=== PATIENT | female | born 1970 | race Caucasian/White ===

== ENCOUNTER 2019-05-21 10:08 | Emergency (ER) | payer BC ==
--- NOTE | 2019-05-21 11:29 | ER ---
Nurse's Notes [facility] Name: Deb Whalen Age: 48 yrs Sex: Female : 1970 Arrival Date: 05/21/2019 Time: 10:12 Bed 18 Private MD: Diagnosis: Other specific joint derangements of right shoulder, not elsewhere classified Presentation: 05/21 10:29 Presenting complaint: Patient states: slipped and fell in shower a couple of days ago sv and landed on her right shoulder. Denies head injury. Pain now radiates down the right arm. Transition of care: patient was not received from another setting of care. Onset of symptoms was May 19, 2019. Risk Assessment: Do you want to hurt yourself or someone else? Patient reports no desire to harm self or others. Care prior to arrival: Medication(s) given: Vicodin 1 tab at 0500 today. 10:29 Method Of Arrival: Ambulatory sv 10:29 Acuity: MIKEY 4 sv 11:37 Initial Sepsis Screen: Does the patient meet any 2 criteria? No. Patient's initial tw2 sepsis screen is negative. Does the patient have a suspected source of infection? No. Patient's initial sepsis screen is negative. Triage Assessment: 10:29 General: Appears in no apparent distress. uncomfortable, well groomed, well developed, sv Behavior is calm, cooperative, appropriate for age. Pain: Complains of pain in anterior aspect of right shoulder and right bicep Pain currently is 6 out of 10 on a pain scale. Neuro: Level of Consciousness is awake, alert, obeys commands, Oriented to person, place, time, situation, Moves all extremities. Respiratory: Airway is patent Respiratory effort is even, unlabored, Respiratory pattern is regular, symmetrical. Derm: Skin is pink, warm \T\ dry. Musculoskeletal: Range of motion: limited in right shoulder. 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 tw2 Historical: - Allergies: 10:31 No Known Allergies; sv - PMHx: 10:31 None; sv - Immunization history:: Adult Immunizations. - Social history:: The patient lives at home, Smoking status: . - Ebola Screening: : Patient denies travel to an Ebola-affected area in the 21 days before illness onset. Screenin:29 Abuse screen: Denies threats or abuse. Denies injuries from another. Nutritional sv screening: No deficits noted. Tuberculosis screening: No symptoms or risk factors identified. Fall Risk None identified. Assessment: 11:36 Reassessment: Patient appears in no apparent distress at this time. No changes from tw2 previously documented assessment. Patient and/or family updated on plan of care and expected duration. Pain level reassessed. Patient is alert, oriented x 3, equal unlabored respirations, skin warm/dry/pink. Vital Signs: 10:31 BP 159 / 82; Pulse 71; Resp 18; Pulse Ox 98% ; Weight 108.86 kg; Height 5 ft. 3 in. sv (160.02 cm); Pain 6/10; 10:56 Temp 98.3(O); tw2 11:24 BP 146 / 67; Pulse 69; Resp 15; Temp 97.7(O); Pulse Ox 98% on R/A; mh5 10:31 Body Mass Index 42.51 (108.86 kg, 160.02 cm) sv ED Course: 10:12 Patient arrived in ED. rg4 10:20 Cristobal Cruz MD is Attending Physician. gs 10:25 Renee Moody, NAVYA is Primary Nurse. sv 10:29 Patient has correct armband on for positive identification. Bed in low position. Call sv light in reach. Pulse ox on. NIBP on. Door closed. Head of bed elevated. 10:30 Triage completed. sv 10:31 Arm band placed on. sv 10:58 Primary Nurse role handed off by Renee Moody, NAVYA tw2 10:58 Neetu Ruiz, RN is Primary Nurse. tw2 11:11 Report given to Neetu MENDOSA. sv 11:28 Shoulder Right (2 View) XRAY In Process Unspecified. EDMS 11:28 Elijah Monte MD is Referral Physician. gs 11:34 Urine --Ancillary (enter results) Sent. 5 11:34 Urine Dipstick--Ancillary (enter results) Sent. 5 11:35 Urine collected: clean catch specimen, clear. 5 11:37 No provider procedures requiring assistance completed. Patient did not have IV access tw2 during this emergency room visit. Administered Medications: No medications were administered Outcome: 11:28 Discharge ordered by . gs 11:37 Discharged to home ambulatory, with sling tw2 11:37 Condition: stable 11:37 Discharge instructions given to patient, Instructed on discharge instructions, follow up and referral plans. no drinking with medication, no driving heavy equipment, medication usage, sling, CMS Demonstrated understanding of instructions, follow-up care, medications, sling Prescriptions given X 1. 11:38 Patient left the ED. tw2 Signatures: Dispatcher [employer] Renee Ortiz RN RN sv Neetu Ruiz RN RN 2 Saskia Price [facility] Cristobal Cruz MD MD Corrections: (The following items were deleted from the chart) 10:55 10:31 108.86 kg; Height 5 ft. 3 in.; BMI: 42.5; Pain 6/10; sv sv
--- NOTE | 2019-05-21 11:29 | EDPHYS ---
Physician Documentation [facility] Name: Deb Whalen Age: 48 yrs Sex: Female : 1970 Arrival Date: 05/21/2019 Time: 10:12 Bed 18 Private MD: ED Physician Cristobal Cruz HPI: 05/21 11:24 This 48 yrs old Female presents to ER via Ambulatory with complaints of Arm gs Pain. 11:24 The patient or guardian complains of injury. The complaints affect the anterior aspect gs of right shoulder. Context: The problem was sustained at home, resulted from a fall, from a standing position, slipped in shower. Onset: The symptoms/episode began/occurred 2 day(s) ago, and became worse. Modifying factors: the symptoms are aggravated by lifting weight, bending arm. Associated signs and symptoms: Pertinent positives: decreased range of motion, Pertinent negatives: numbness, warmth, weakness. Severity of symptoms: At their worst the symptoms were moderate, in the emergency department the symptoms are unchanged. The patient has not experienced similar symptoms in the past. 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 tw2 Historical: - Allergies: 10:31 No Known Allergies; sv - PMHx: 10:31 None; sv - Immunization history:: Adult Immunizations. - Social history:: The patient lives at home, Smoking status: . - Ebola Screening: : Patient denies travel to an Ebola-affected area in the 21 days before illness onset. ROS: 11:24 All other systems are negative. gs Exam: 11:24 Head/Face: Normocephalic, atraumatic. Eyes: Pupils equal round and reactive to light, gs extra-ocular motions intact. Lids and lashes normal. Conjunctiva and sclera are non-icteric and not injected. Cornea within normal limits. Periorbital areas with no swelling, redness, or edema. ENT: Nares patent. No nasal discharge, no septal abnormalities noted. Tympanic membranes are normal and external auditory canals are clear. Oropharynx with no redness, swelling, or masses, exudates, or evidence of obstruction, uvula midline. Mucous membranes moist. Neck: Trachea midline, no thyromegaly or masses palpated, and no cervical lymphadenopathy. Supple, full range of motion without nuchal rigidity, or vertebral point tenderness. No Meningismus. Chest/axilla: Normal chest wall appearance and motion. Nontender with no deformity. No lesions are appreciated. Cardiovascular: Regular rate and rhythm with a normal S1 and S2. No gallops, murmurs, or rubs. Normal PMI, no JVD. No pulse deficits. Respiratory: Lungs have equal breath sounds bilaterally, clear to auscultation and percussion. No rales, rhonchi or wheezes noted. No increased work of breathing, no retractions or nasal flaring. Abdomen/GI: Soft, non-tender, with normal bowel sounds. No distension or tympany. No guarding or rebound. No evidence of tenderness throughout. Back: No spinal tenderness. No costovertebral tenderness. Full range of motion. Skin: Warm, dry with normal turgor. Normal color with no rashes, no lesions, and no evidence of cellulitis. Neuro: Awake and alert, GCS 15, oriented to person, place, time, and situation. Cranial nerves II-XII grossly intact. Motor strength 5/5 in all extremities. Sensory grossly intact. Cerebellar exam normal. Normal gait. 11:24 Constitutional: The patient appears alert, awake, uncomfortable. 11:24 Musculoskeletal/extremity: ROM: limited active range of motion due to pain, limited passive range of motion due to pain, Pulses: are normal with no appreciated deficits, Sensation intact. Joints: the right shoulder displays painful range of motion, tenderness. Vital Signs: 10:31 BP 159 / 82; Pulse 71; Resp 18; Pulse Ox 98% ; Weight 108.86 kg; Height 5 ft. 3 in. sv (160.02 cm); Pain 6/10; 10:56 Temp 98.3(O); tw2 11:24 BP 146 / 67; Pulse 69; Resp 15; Temp 97.7(O); Pulse Ox 98% on R/A; mh5 10:31 Body Mass Index 42.51 (108.86 kg, 160.02 cm) sv MDM: 10:30 Patient medically screened. gs 11:24 Differential diagnosis: dislocation, closed fracture, contusion. Data reviewed: vital gs signs, nurses notes. Counseling: I had a detailed discussion with the patient and/or guardian regarding: the historical points, exam findings, and any diagnostic results supporting the discharge/admit diagnosis, the presence of at least one elevated blood pressure reading (>120/80) during this emergency department visit, the need for outpatient follow up. Response to treatment: There is no appreciated change of the patient's symptoms at this time. 05/21 11:08 Order name: Urine Dipstick--Ancillary (enter results) 05/21 11:08 Order name: Urine --Ancillary (enter results) 05/21 10:31 Order name: Shoulder Right (2 View) XRAY 05/21 11:37 Order name: Sling; Complete Time: 11:37 tw2 Administered Medications: No medications were administered Disposition: 05/21/19 11:28 Discharged to Home. Impression: Other specific joint derangements of right shoulder, not elsewhere classified. - Condition is Stable. - Discharge Instructions: Shoulder Pain. - Prescriptions for Tylenol- Codeine #4 300-60 mg Oral Tablet - take 1 tablet by ORAL route every 6 hours As needed; 6 tablet. - Work release form, Medication Reconciliation Form, Thank You Letter, Antibiotic Education, Prescription Opioid Use form. - Follow up: Elijah Monte MD; When: 2 - 3 days; Reason: Re-evaluation by your physician. Signatures: Dispatcher [employer] EDRenee Ferrara RN RN Neetu Ruiz RN RN tw2 Cristobal Cruz MD MD Corrections: (The following items were deleted from the chart) 11:38 11:28 05/21/2019 11:28 Discharged to Home. Impression: Other specific joint tw2 derangements of right shoulder, not elsewhere classified. Condition is Stable. Forms are Work release form, Medication Reconciliation Form, Thank You Letter, Antibiotic Education, Prescription Opioid Use. Follow up: Dr. Elijah Monte; When: 2 - 3 days; Reason: Re-evaluation by your physician. gs
--- NOTE | 2019-05-21 11:37 | RAD REPORT ---
EXAM DESCRIPTION: RAD - Shoulder Right 2 View - 05/21/2019 11:26 am CLINICAL HISTORY: PAIN COMPARISON: No comparisons FINDINGS: AC joint and glenohumeral joint arthritic changes are present. No fracture or dislocation seen.
[2019-05-21 11:43] LABS: Urine Blood 1+ (NEG); Urine Glucose NEGATIVE (NEG); Urine Protein NEGATIVE (NEG)
[2019-05-21 12:27] VITALS: O2SAT 98
[2019-05-21 12:30] VITALS: BP 146/67; TEMP 97.7
== END 2019-05-21 11:38 | disposition home or self-care (01) ==
LOC: ER 10:08
DX: M24.811 Other specific joint derangements of right shoulder, not elsewhere classified (principal)
CPT/HCPCS: 81003; 81025; 99284

== ENCOUNTER → 2023-09-14 | Emergency (ER) | payer BC ==
[~2023-09-14] MED LIST: ASPIRIN 81 MG CHEWABLE TABLET ONE; FUROSEMIDE 20 MG/ 2ML VIAL ONE; NA CHLORIDE 0.9% 500 ML ONE
--- OUTSIDE RECORDS SUMMARY | 2023-09-14 09:30 | XMS REPORT | Continuity of Care Document ---
Author Name Unknown Address [address] [facility] [address] [place] [address] [facility] thconnect Address [address] [place] [address] Care Team Providers Care Vice President Underwriting Name Role Phone KAYLEN TURK Primary Care Physician Unavailab Kaylen Mejia Attending Clinician Unavailable Shanita Ahmadi Attending Clinician Unavailable Barb Barton Attending Clinician Unavailable SHARONDA BROWNE Attending Clinician SHARONDA Perry Attending Clinician JULIÁN Sarmiento Attending Clinician Unavailable Julián Lopez Attending Clinician [phone] Unknown, Attending Attending Clinician Unavailab douglas Doctor Unassigned, [place] Attending Clinician VAUGHN Lee Attending Clinician UnavailVAUGHN Link Attending Clinician UnavailSarah Gilman MA Attending Clinician Unavailabl e Lab, Ang - Db Attending Clinician Unavailable DAMIEN DONATO Attending Clinician Unavailable Allyssa Gonzales MD Attending Clinician [phone] Damien Donato MD Attending Clinician [phone] RANDY GUILLEN Attending Clinician Unavailable Randy Guillen MD Attending Clinician EVER WOLF Attending Clinician Unavailable Sarah Rain MA Attending Clinician MARIA D Barnes Attending Clinician Unavailable DAMIEN DONATO Admitting Clinician Unavailable Payers Payer Name Policy Type Policy Number Effective Date Expirati on Date Source [facility] [id number] 2018 00:00:[address] [place] [address] [id number] [facility] Problems Condition Name Condition Details Condition Category Status Onset Date Resolution Date Last Treatment Date Treating Clinician Comments Source Phlebolith Phlebolith Disease Active 12-08 00:00: 00 [facility] Elevated serum hCG in female, not Elevated serum hCG in female, not Disease Active 12-08 00:00: 00 [facility] Screening for malignant neoplasm of the cervix Screening for malignant neoplasm of the cervix Disease Active 03-23 00:00: 00 [facility] Screening mammogram, encounter for Screening mammogram, encounter for Disease Active 03-23 00:00: 00 [facility] Breast cancer screening Breast cancer screening Disease Active 2014-08 00:00: 00 [facility] UTI (lower urinary tract infection) UTI (lower urinary tract infection) Disease Active 2014-08 00:00: 00 [facility] Obesity Obesity Disease Active 2014-08 00:00: 00 [facility] Low back pain Low back pain, unspecifie d Problem Common [facility] [id number] Unable to concentrat e Problem [facility] [id number] Opioid use disorder, moderate, dependence Problem Common [facility] [id number] Urinary frequency Problem Common [facility] [id number] Low back pain Problem [facility] [id number] Dizziness Problem Comm on [facility] [id number] Weakness Problem Common [facility] [id number] Depression , unspecifie d depression type Problem Common [facility] [id number] Family history of diabetes mellitus Problem [facility] [id number] Body mass index (BMI) 40.0-44.9, adult Problem [facility] [id number] Left lower quadrant abdominal pain Problem [facility] [id number] Morbid obesity due to excess calories Problem [facility] [id number] Opioid withdrawal Problem [facility] [id number] Mixed hyperlipid emia Problem [facility] Constipati on Constipati on Problem [facility] [id number] Grief Problem [facility] [id number] Elevated blood pressure reading without diagnosis of hypertensi on Problem [facility] [id number] Lymphocyto sis Problem [facility] [id number] Sweating increase Problem [facility] Chronic pain Chronic pain Problem [facility] [id number] Right shoulder pain, unspecifie d chronicity Problem [facility] [id number] Elevated liver enzymes Problem [facility] Pain in right leg Right leg pain Problem [facility] Hypertensi on Hypertensi on Problem [facility] Essential hypertensi on Essential hypertensi on Problem [facility] Allergies, Adverse Reactions, Alerts Allergy Name Allergy Type Status Severity Reaction(s) Onset Date Inactive Date Treating Clinician Comments Source NO KNOWN ALLERGIE S Drug Class Active [facility] Social History Social Habit Start Date Stop Date Quantity Comments Source History of Tobacco Use [facility] Sex Assigned At [facility] Gender identity [facility] Sexual orientation U [facility] Alcohol intake 2023-08-01 00:00:00 2023-08-01 00:00:00 0 /d [facility] History of Social function 2023-08-01 00:00:00 2023-08-01 00:00:00 [facility] Exposure to SARS-CoV-2 (event) 2022-12-27 00:00:2023-01-06 12:18:00 Not sure [facility] Tobacco use and exposure 2022-03-21 00:00:00 2022-03-21 00:00:00 Smokeless tobacco non-user [facility] Smoking Status Start Date Stop Date Source Never smoked tobacco [facility] Medications Ordered Medication Name Filled Medication Name Start Date Stop Date Current Medication? Ordering Clinician Indication Dosage Frequency Signature (SIG) Comments Components Source promethazin e-dextromet horphan 6.25-15 mg/5 mL syrup 2022-08 2-05 00:00: 00 08-12 05:59 :00 Yes [id number] 5mL Take 5 mL by mouth 4 (four) times daily for 10 days. [facility] Ozempic (2 MG/DOSE) 8 MG/3ML Ozempic (2 MG/DOSE) 8 MG/3ML 3-0 9-20 00:00: 00 No Ozempic (2 MG/DOSE) 8 MG/3ML Ozempic (2 MG/DOSE) 8 MG/3ML Ozempic (2 MG/DOSE) 8 MG/3ML 2023-0 9-20 00:00: 00 No Ozempic (2 MG/DOSE) 8 MG/3ML Ozempic (2 MG/DOSE) 8 MG/3ML Ozempic (2 MG/DOSE) 8 MG/3ML 2023-0 9-20 00:00: 00 No Ozempic (2 MG/DOSE) 8 MG/3ML Ozempic (2 MG/DOSE) 8 MG/3ML Ozempic (2 MG/DOSE) 8 MG/3ML 2023-0 9-20 00:00: 00 No Ozempic (2 MG/DOSE) 8 MG/3ML Ozempic (2 MG/DOSE) 8 MG/3ML Ozempic (2 MG/DOSE) 8 MG/3ML 2023-0 9-20 00:00: 00 No Ozempic (2 MG/DOSE) 8 MG/3ML Ozempic (2 MG/DOSE) 8 MG/3ML Ozempic (2 MG/DOSE) 8 MG/3ML 2023-0 9-20 00:00: 00 No Ozempic (2 MG/DOSE) 8 MG/3ML iopamidol (ISOVUE 370-500 mL) injection 100 mL 12-05 03:15: 00 12-05 03:15 :00 No [id number] 100mL 100 mL, Intravenou s, ONCE, 1 dose, On Mon12/04/22 at 2215, Routine [facility] NaCl 0.9% (NS) IV infusion 1,000 mL 12-05 02:15: 00 12-05 04:46 :00 No 1000mL at 999 mL/hr, Intravenou s, ONCE, 1 dose, On Mon12/04/22 at 2115, Routine [facility] NaCl 0.9% (NS) bolus infusion 1,000 mL 12-05 00:00: 00 12-05 00:51 :00 No 1000mL at 999 mL/hr, 1,000 mL, IV Infusion, ONCE, 1 dose, On Mon12/04/22 at 1900, [facility] ondansetron (ZOFRAN (PF)) injection 4 mg 12-04 23:15: 00 12-04 23:43 :00 No 4mg 4 mg, Slow IV Push, ONCE, 1 dose, On Mon12/04/22 at 1815, [facility] ondansetron (ZOFRAN) 4 mg tablet 12-04 00:00: 00 Yes [id number] 4mg Take 1 tablet by mouth every 8 (eight) hours as needed for Nausea and Vomiting (N/V). [facility] dicyclomine 20 mg tablet 12-04 00:00: 00 Yes [id number] 20mg Take 1 tablet by mouth every 6 (six) hours as needed for Abdominal pain. [facility] ondansetron (ZOFRAN) 4 mg tablet 12-04 00:00: 00 Yes [id number] 4mg Take 1 tablet by mouth every 8 (eight) hours as needed for Nausea and Vomiting (N/V). [facility] dicyclomine 20 mg tablet 12-04 00:00: 00 Yes [id number] 20mg Take 1 tablet by mouth every 6 (six) hours as needed for Abdominal pain. [facility] ondansetron (ZOFRAN) 4 mg tablet 3-0 4- 00:00: 00 Yes [id number] 4mg Take 1 tablet by mouth every 8 (eight) hours as needed for Nausea and Vomiting (N/V). [facility] dicyclomine 20 mg tablet 3-0 - 00:00: 00 Yes [id number] 20mg Take 1 tablet by mouth every 6 (six) hours as needed for Abdominal pain. [facility] ondansetron (ZOFRAN) 4 mg tablet 2022-0 - 00:00: 00 Yes [id number] 4mg Take 1 tablet by mouth every 8 (eight) hours as needed for Nausea and Vomiting (N/V). [facility] dicyclomine 20 mg tablet 2022-0 - 00:00: 00 Yes [id number] 20mg Take 1 tablet by mouth every 6 (six) hours as needed for Abdominal pain. [facility] ondansetron (ZOFRAN) 4 mg tablet 2022-0 - 00:00: 00 Yes [id number] 4mg Take 1 tablet by mouth every 8 (eight) hours as needed for Nausea and Vomiting (N/V). [facility] dicyclomine 20 mg tablet 3-0 12-04 00:00: 00 Yes [id number] 20mg Take 1 tablet by mouth every 6 (six) hours as needed for Abdominal pain. [facility] ondansetron (ZOFRAN) 4 mg tablet 3-0 - 00:00: 00 Yes [id number] 4mg Take 1 tablet by mouth every 8 (eight) hours as needed for Nausea and Vomiting (N/V). [facility] dicyclomine 20 mg tablet 3-0 - 00:00: 00 Yes [id number] 20mg Take 1 tablet by mouth every 6 (six) hours as needed for Abdominal pain. [facility] ondansetron (ZOFRAN) 4 mg tablet 3-0 -09 00:00: 00 Yes [id number] 4mg Take 1 tablet by mouth every 8 (eight) hours as needed for Nausea and Vomiting (N/V). [facility] dicyclomine 20 mg tablet 3-0 4- 00:00: 00 Yes [id number] 20mg Take 1 tablet by mouth every 6 (six) hours as needed for Abdominal pain. [facility] ondansetron (ZOFRAN) 4 mg tablet 2022-0 - 00:00: 00 Yes [id number] 4mg Take 1 tablet by mouth every 8 (eight) hours as needed for Nausea and Vomiting (N/V). [facility] dicyclomine 20 mg tablet 2022-0 - 00:00: 00 Yes [id number] 20mg Take 1 tablet by mouth every 6 (six) hours as needed for Abdominal pain. [facility] ondansetron (ZOFRAN) 4 mg tablet 2022-0 - 00:00: 00 Yes [id number] 4mg Take 1 tablet by mouth every 8 (eight) hours as needed for Nausea and Vomiting (N/V). [facility] dicyclomine 20 mg tablet 2022-0 12-04 00:00: 00 Yes [id number] 20mg Take 1 tablet by mouth every 6 (six) hours as needed for Abdominal pain. [facility] ondansetron (ZOFRAN) 4 mg tablet 2022-0 12-04 00:00: 00 Yes [id number] 4mg Take 1 tablet by mouth every 8 (eight) hours as needed for Nausea and Vomiting (N/V). [facility] dicyclomine 20 mg tablet 3-0 - 00:00: 00 Yes [id number] 20mg Take 1 tablet by mouth every 6 (six) hours as needed for Abdominal pain. [facility] ondansetron (ZOFRAN) 4 mg tablet 3-0 - 00:00: 00 Yes [id number] 4mg Take 1 tablet by mouth every 8 (eight) hours as needed for Nausea and Vomiting (N/V). [facility] dicyclomine 20 mg tablet 3-0 4- 00:00: 00 Yes [id number] 20mg Take 1 tablet by mouth every 6 (six) hours as needed for Abdominal pain. [facility] ondansetron (ZOFRAN) 4 mg tablet 3-0 4-09 00:00: 00 Yes [id number] 4mg Take 1 tablet by mouth every 8 (eight) hours as needed for Nausea and Vomiting (N/V). [facility] dicyclomine 20 mg tablet 3-0 4-09 00:00: 00 Yes [id number] 20mg Take 1 tablet by mouth every 6 (six) hours as needed for Abdominal pain. [facility] ondansetron (ZOFRAN) 4 mg tablet 2022-0 - 00:00: 00 Yes [id number] 4mg Take 1 tablet by mouth every 8 (eight) hours as needed for Nausea and Vomiting (N/V). [facility] dicyclomine 20 mg tablet 2022-0 - 00:00: 00 Yes [id number] 20mg Take 1 tablet by mouth every 6 (six) hours as needed for Abdominal pain. [facility] ondansetron (ZOFRAN) 4 mg tablet 2022-0 - 00:00: 00 Yes [id number] 4mg Take 1 tablet by mouth every 8 (eight) hours as needed for Nausea and Vomiting (N/V). [facility] dicyclomine 20 mg tablet 3-0 - 00:00: 00 Yes [id number] 20mg Take 1 tablet by mouth every 6 (six) hours as needed for Abdominal pain. [facility] ondansetron (ZOFRAN) 4 mg tablet 2022-0 4-09 00:00: 00 Yes [id number] 4mg Take 1 tablet by mouth every 8 (eight) hours as needed for Nausea and Vomiting (N/V). [facility] dicyclomine 20 mg tablet 3-0 - 00:00: 00 Yes [id number] 20mg Take 1 tablet by mouth every 6 (six) hours as needed for Abdominal pain. [facility] ondansetron (ZOFRAN) 4 mg tablet 3-0 4-09 00:00: 00 Yes [id number] 4mg Take 1 tablet by mouth every 8 (eight) hours as needed for Nausea and Vomiting (N/V). [facility] dicyclomine 20 mg tablet 12-04 00:00: 00 Yes [id number] 20mg Take 1 tablet by mouth every 6 (six) hours as needed for Abdominal pain. [facility] ondansetron (ZOFRAN-ODT ) disintegrat ing tablet 8 mg 11-30 19:45: 00 11-30 18:50 :00 No [id number] 8mg [facility] ondansetron (ZOFRAN-ODT ) disintegrat ing tablet 8 mg 11-30 19:45: 00 11-30 18:50 :00 No [id number] 8mg 8 mg, Oral, ONCE, 1 dose, On Mon11/30/22 at 1445, Routine [facility] SERTraline 100 mg tablet 11-30 13:36: 46 Yes 2 tablet Orally Once a day for depression for 90 days [facility] ondansetron 4 mg disintegrat ing tablet 11-30 13:36: 46 Yes 1 tablet on the tongue and allow to dissolve Orally TID for 5 days [facility] rosuvastati n 20 mg tablet 11-30 13:36: 46 Yes 1 tablet in evening Orally Once a day for high cholestero l/triglyce rides for 90 days [facility] SERTraline 100 mg tablet 11-30 13:36: 46 Yes 2 tablet Orally Once a day for depression for 90 days [facility] ondansetron 4 mg disintegrat ing tablet 11-30 13:36: 46 Yes 1 tablet on the tongue and allow to dissolve Orally TID for 5 days [facility] rosuvastati n 20 mg tablet 11-30 13:36: 46 Yes 1 tablet in evening Orally Once a day for high cholestero l/triglyce rides for 90 days [facility] SERTraline 100 mg tablet 11-30 13:36: 46 Yes 2 tablet Orally Once a day for depression for 90 days [facility] ondansetron 4 mg disintegrat ing tablet 11-30 13:36: 46 Yes 1 tablet on the tongue and allow to dissolve Orally TID for 5 days [facility] rosuvastati n 20 mg tablet 11-30 13:36: 46 Yes 1 tablet in evening Orally Once a day for high cholestero l/triglyce rides for 90 days [facility] SERTraline 100 mg tablet 11-30 13:36: 46 Yes 2 tablet Orally Once a day for depression for 90 days [facility] ondansetron 4 mg disintegrat ing tablet 11-30 13:36: 46 Yes 1 tablet on the tongue and allow to dissolve Orally TID for 5 days [facility] rosuvastati n 20 mg tablet 11-30 13:36: 46 Yes 1 tablet in evening Orally Once a day for high cholestero l/triglyce rides for 90 days [facility] SERTraline 100 mg tablet 11-30 13:36: 46 Yes 2 tablet Orally Once a day for depression for 90 days [facility] ondansetron 4 mg disintegrat ing tablet 11-30 13:36: 46 Yes 1 tablet on the tongue and allow to dissolve Orally TID for 5 days [facility] rosuvastati n 20 mg tablet 11-30 13:36: 46 Yes 1 tablet in evening Orally Once a day for high cholestero l/triglyce rides for 90 days [facility] SERTraline 100 mg tablet 11-30 13:36: 46 Yes 2 tablet Orally Once a day for depression for 90 days [facility] ondansetron 4 mg disintegrat ing tablet 11-30 13:36: 46 Yes 1 tablet on the tongue and allow to dissolve Orally TID for 5 days [facility] rosuvastati n 20 mg tablet 11-30 13:36: 46 Yes 1 tablet in evening Orally Once a day for high cholestero l/triglyce rides for 90 days [facility] SERTraline 100 mg tablet 11-30 13:36: 46 Yes 2 tablet Orally Once a day for depression for 90 days [facility] ondansetron 4 mg disintegrat ing tablet 11-30 13:36: 46 Yes 1 tablet on the tongue and allow to dissolve Orally TID for 5 days [facility] rosuvastati n 20 mg tablet 11-30 13:36: 46 Yes 1 tablet in evening Orally Once a day for high cholestero l/triglyce rides for 90 days [facility] SERTraline 100 mg tablet 11-30 13:36: 46 Yes 2 tablet Orally Once a day for depression for 90 days [facility] ondansetron 4 mg disintegrat ing tablet 11-30 13:36: 46 Yes 1 tablet on the tongue and allow to dissolve Orally TID for 5 days [facility] rosuvastati n 20 mg tablet 11-30 13:36: 46 Yes 1 tablet in evening Orally Once a day for high cholestero l/triglyce rides for 90 days [facility] SERTraline 100 mg tablet 11-30 13:36: 46 Yes 2 tablet Orally Once a day for depression for 90 days [facility] ondansetron 4 mg disintegrat ing tablet 11-30 13:36: 46 Yes 1 tablet on the tongue and allow to dissolve Orally TID for 5 days [facility] rosuvastati n 20 mg tablet 11-30 13:36: 46 Yes 1 tablet in evening Orally Once a day for high cholestero l/triglyce rides for 90 days [facility] SERTraline 100 mg tablet 11-30 13:36: 46 Yes 2 tablet Orally Once a day for depression for 90 days [facility] ondansetron 4 mg disintegrat ing tablet 11-30 13:36: 46 Yes 1 tablet on the tongue and allow to dissolve Orally TID for 5 days [facility] rosuvastati n 20 mg tablet 11-30 13:36: 46 Yes 1 tablet in evening Orally Once a day for high cholestero l/triglyce rides for 90 days [facility] SERTraline 100 mg tablet 11-30 13:36: 46 Yes 2 tablet Orally Once a day for depression for 90 days [facility] ondansetron 4 mg disintegrat ing tablet 11-30 13:36: 46 Yes 1 tablet on the tongue and allow to dissolve Orally TID for 5 days [facility] rosuvastati n 20 mg tablet 11-30 13:36: 46 Yes 1 tablet in evening Orally Once a day for high cholestero l/triglyce rides for 90 days [facility] SERTraline 100 mg tablet 11-30 13:36: 46 Yes 2 tablet Orally Once a day for depression for 90 days [facility] ondansetron 4 mg disintegrat ing tablet 11-30 13:36: 46 Yes 1 tablet on the tongue and allow to dissolve Orally TID for 5 days [facility] rosuvastati n 20 mg tablet 11-30 13:36: 46 Yes 1 tablet in evening Orally Once a day for high cholestero l/triglyce rides for 90 days [facility] SERTraline 100 mg tablet 11-30 13:36: 46 Yes 2 tablet Orally Once a day for depression for 90 days [facility] ondansetron 4 mg disintegrat ing tablet 11-30 13:36: 46 Yes 1 tablet on the tongue and allow to dissolve Orally TID for 5 days [facility] rosuvastati n 20 mg tablet 11-30 13:36: 46 Yes 1 tablet in evening Orally Once a day for high cholestero l/triglyce rides for 90 days [facility] SERTraline 100 mg tablet 11-30 13:36: 46 Yes 2 tablet Orally Once a day for depression for 90 days [facility] ondansetron 4 mg disintegrat ing tablet 11-30 13:36: 46 Yes 1 tablet on the tongue and allow to dissolve Orally TID for 5 days [facility] rosuvastati n 20 mg tablet 11-30 13:36: 46 Yes 1 tablet in evening Orally Once a day for high cholestero l/triglyce rides for 90 days [facility] SERTraline 100 mg tablet 11-30 13:36: 46 Yes 2 tablet Orally Once a day for depression for 90 days [facility] ondansetron 4 mg disintegrat ing tablet 11-30 13:36: 46 Yes 1 tablet on the tongue and allow to dissolve Orally TID for 5 days [facility] rosuvastati n 20 mg tablet 11-30 13:36: 46 Yes 1 tablet in evening Orally Once a day for high cholestero l/triglyce rides for 90 days [facility] SERTraline 100 mg tablet 11-30 13:36: 46 Yes 2 tablet Orally Once a day for depression for 90 days [facility] ondansetron 4 mg disintegrat ing tablet 11-30 13:36: 46 Yes 1 tablet on the tongue and allow to dissolve Orally TID for 5 days [facility] rosuvastati n 20 mg tablet 11-30 13:36: 46 Yes 1 tablet in evening Orally Once a day for high cholestero l/triglyce rides for 90 days [facility] SERTraline 100 mg tablet 11-30 13:36: 46 Yes 2 tablet Orally Once a day for depression for 90 days [facility] ondansetron 4 mg disintegrat ing tablet 11-30 13:36: 46 Yes 1 tablet on the tongue and allow to dissolve Orally TID for 5 days [facility] rosuvastati n 20 mg tablet 11-30 13:36: 46 Yes 1 tablet in evening Orally Once a day for high cholestero l/triglyce rides for 90 days [facility] SERTraline 100 mg tablet 11-30 13:36: 46 Yes 2 tablet Orally Once a day for depression for 90 days [facility] ondansetron 4 mg disintegrat ing tablet 11-30 13:36: 46 Yes 1 tablet on the tongue and allow to dissolve Orally TID for 5 days [facility] rosuvastati n 20 mg tablet 11-30 13:36: 46 Yes 1 tablet in evening Orally Once a day for high cholestero l/triglyce rides for 90 days [facility] proMETHazin e 25 mg tablet 11-30 00:00: 00 Yes [id number] 25mg Take 1 tablet by mouth every 4 (four) hours as needed for Nausea and Vomiting (N/V). [facility] proMETHazin e 25 mg tablet 11-30 00:00: 00 Yes [id number] 25mg Take 1 tablet by mouth every 4 (four) hours as needed for Nausea and Vomiting (N/V). [facility] proMETHazin e 25 mg tablet 11-30 00:00: 00 Yes [id number] 25mg Take 1 tablet by mouth every 4 (four) hours as needed for Nausea and Vomiting (N/V). [facility] proMETHazin e 25 mg tablet 11-30 00:00: 00 Yes [id number] 25mg Take 1 tablet by mouth every 4 (four) hours as needed for Nausea and Vomiting (N/V). [facility] proMETHazin e 25 mg tablet 11-30 00:00: 00 Yes [id number] 25mg Take 1 tablet by mouth every 4 (four) hours as needed for Nausea and Vomiting (N/V). [facility] proMETHazin e 25 mg tablet 11-30 00:00: 00 Yes [id number] 25mg Take 1 tablet by mouth every 4 (four) hours as needed for Nausea and Vomiting (N/V). [facility] proMETHazin e 25 mg tablet 11-30 00:00: 00 Yes [id number] 25mg Take 1 tablet by mouth every 4 (four) hours as needed for Nausea and Vomiting (N/V). [facility] proMETHazin e 25 mg tablet 11-30 00:00: 00 Yes [id number] 25mg Take 1 tablet by mouth every 4 (four) hours as needed for Nausea and Vomiting (N/V). [facility] proMETHazin e 25 mg tablet 3-0 4-05 00:00: 00 Yes [id number] 25mg Take 1 tablet by mouth every 4 (four) hours as needed for Nausea and Vomiting (N/V). [facility] proMETHazin e 25 mg tablet 2022-0 4-05 00:00: 00 Yes [id number] 25mg Take 1 tablet by mouth every 4 (four) hours as needed for Nausea and Vomiting (N/V). [facility] proMETHazin e 25 mg tablet 3-0 4-05 00:00: 00 Yes [id number] 25mg Take 1 tablet by mouth every 4 (four) hours as needed for Nausea and Vomiting (N/V). [facility] proMETHazin e 25 mg tablet 2022-0 4-05 00:00: 00 Yes [id number] 25mg Take 1 tablet by mouth every 4 (four) hours as needed for Nausea and Vomiting (N/V). [facility] proMETHazin e 25 mg tablet 2022-0 4-05 00:00: 00 Yes [id number] 25mg Take 1 tablet by mouth every 4 (four) hours as needed for Nausea and Vomiting (N/V). [facility] proMETHazin e 25 mg tablet 3-0 4-05 00:00: 00 Yes [id number] 25mg Take 1 tablet by mouth every 4 (four) hours as needed for Nausea and Vomiting (N/V). [facility] proMETHazin e 25 mg tablet 3-0 4-05 00:00: 00 Yes [id number] 25mg Take 1 tablet by mouth every 4 (four) hours as needed for Nausea and Vomiting (N/V). [facility] proMETHazin e 25 mg tablet 3-0 4-05 00:00: 00 Yes [id number] 25mg Take 1 tablet by mouth every 4 (four) hours as needed for Nausea and Vomiting (N/V). [facility] proMETHazin e 25 mg tablet 3-0 4-05 00:00: 00 Yes [id number] 25mg Take 1 tablet by mouth every 4 (four) hours as needed for Nausea and Vomiting (N/V). [facility] proMETHazin e 25 mg tablet 11-30 00:00: 00 Yes [id number] 25mg Take 1 tablet by mouth every 4 (four) hours as needed for Nausea and Vomiting (N/V). [facility] bismuth subsalicyla te (PEPTO-BISM OL) 262 mg chewable tablet 11-30 00:00: 00 12-04 04:59 :00 No [id number] 524mg Take 2 tablets by mouth every 4 (four) hours as needed for Pain (scale 4-6) or Pain (scale 7-10) for up to 3 days. [facility] bismuth subsalicyla te (PEPTO-BISM OL) 262 mg chewable tablet 11-30 00:00: 12-04 04:59 :00 No [id number] 524mg Take 2 tablets by mouth every 4 (four) hours as needed for Pain (scale 4-6) or Pain (scale 7-10) for up to 3 days. [facility] OZEMPIC 2 mg/dose (8 mg/3 mL) PnIj 2022-0 325 00:00: 00 Yes INJECT 2 MG SUBCUTANEO USLY WEEKLY [facility] mg/dose (8 mg/3 mL) PnIj 2022-0 3- 00:00: 00 Yes INJECT 2 MG SUBCUTANEO USLY WEEKLY [facility] OZEMPIC 2 mg/dose (8 mg/3 mL) PnIj 2022-0 3-25 00:00: 00 Yes INJECT 2 MG SUBCUTANEO USLY WEEKLY [facility] OZEMPIC 2 mg/dose (8 mg/3 mL) PnIj 2022-0 3-25 00:00: 00 Yes INJECT 2 MG SUBCUTANEO USLY WEEKLY [facility] mg/dose (8 mg/3 mL) PnIj 3-0 3-25 00:00: 00 Yes INJECT 2 MG SUBCUTANEO USLY WEEKLY [facility] OZEMPIC 2 mg/dose (8 mg/3 mL) PnIj 3-0 3-25 00:00: 00 Yes INJECT 2 MG SUBCUTANEO USLY WEEKLY [facility] OZEMPIC 2 mg/dose (8 mg/3 mL) PnIj 3-0 3-25 00:00: 00 Yes INJECT 2 MG SUBCUTANEO USLY WEEKLY [facility] OZEMPIC 2 mg/dose (8 mg/3 mL) PnIj 2022-0 3-25 00:00: 00 Yes INJECT 2 MG SUBCUTANEO USLY WEEKLY [facility] OZEMPIC 2 mg/dose (8 mg/3 mL) PnIj 2022-0 3-25 00:00: 00 Yes INJECT 2 MG SUBCUTANEO USLY WEEKLY [facility] OZEMPIC 2 mg/dose (8 mg/3 mL) PnIj 3-0 3-25 00:00: 00 Yes INJECT 2 MG SUBCUTANEO USLY WEEKLY [facility] OZEMPIC 2 mg/dose (8 mg/3 mL) PnIj 3-0 3-25 00:00: 00 Yes INJECT 2 MG SUBCUTANEO USLY WEEKLY [facility] OZEMPIC 2 mg/dose (8 mg/3 mL) PnIj 3-0 3-25 00:00: 00 Yes INJECT 2 MG SUBCUTANEO USLY WEEKLY [facility] OZEMPIC 2 mg/dose (8 mg/3 mL) PnIj 3-0 3-25 00:00: 00 Yes INJECT 2 MG SUBCUTANEO USLY WEEKLY [facility] OZEMPIC 2 mg/dose (8 mg/3 mL) PnIj 3-0 3-25 00:00: 00 Yes INJECT 2 MG SUBCUTANEO USLY WEEKLY [facility] OZEMPIC 2 mg/dose (8 mg/3 mL) PnIj 3-0 3-25 00:00: 00 Yes INJECT 2 MG SUBCUTANEO USLY WEEKLY [facility] OZEMPIC 2 mg/dose (8 mg/3 mL) PnIj 3-0 3-25 00:00: 00 Yes INJECT 2 MG SUBCUTANEO USLY WEEKLY [facility] OZEMPIC 2 mg/dose (8 mg/3 mL) PnIj 0 3-25 00:00: 00 Yes INJECT 2 MG SUBCUTANEO USLY WEEKLY [facility] OZEMPIC 2 mg/dose (8 mg/3 mL) PnIj 0 3-25 00:00: 00 Yes INJECT 2 MG SUBCUTANEO USLY WEEKLY [facility] phentermine 37.5 mg tablet 2022-0 324 00:00: 00 Yes 37.5mg Take 1 tablet by mouth in the morning. [facility] phentermine 37.5 mg tablet 2022-0 324 00:00: 00 Yes 37.5mg Take 1 tablet by mouth in the morning. [facility] phentermine 37.5 mg tablet 2022-0 24 00:00: 00 Yes 37.5mg Take 1 tablet by mouth in the morning. [facility] phentermine 37.5 mg tablet 2022-0 324 00:00: 00 Yes 37.5mg Take 1 tablet by mouth in the morning. [facility] phentermine 37.5 mg tablet 2022-0 324 00:00: 00 Yes 37.5mg Take 1 tablet by mouth in the morning. [facility] phentermine 37.5 mg tablet 2022-0 324 00:00: 00 Yes 37.5mg Take 1 tablet by mouth in the morning. [facility] phentermine 37.5 mg tablet 3-0 324 00:00: 00 Yes 37.5mg Take 1 tablet by mouth in the morning. [facility] phentermine 37.5 mg tablet 3-0 3-24 00:00: 00 Yes 37.5mg Take 1 tablet by mouth in the morning. [facility] phentermine 37.5 mg tablet 3-0 3-24 00:00: 00 Yes 37.5mg Take 1 tablet by mouth in the morning. [facility] phentermine 37.5 mg tablet 3-0 3-24 00:00: 00 Yes 37.5mg Take 1 tablet by mouth in the morning. [facility] phentermine 37.5 mg tablet 3-0 324 00:00: 00 Yes 37.5mg Take 1 tablet by mouth in the morning. [facility] phentermine 37.5 mg tablet 3-0 324 00:00: 00 Yes 37.5mg Take 1 tablet by mouth in the morning. [facility] phentermine 37.5 mg tablet 3-0 324 00:00: 00 Yes 37.5mg Take 1 tablet by mouth in the morning. [facility] phentermine 37.5 mg tablet 3-0 324 00:00: 00 Yes 37.5mg Take 1 tablet by mouth in the morning. [facility] phentermine 37.5 mg tablet 3-0 24 00:00: 00 Yes 37.5mg Take 1 tablet by mouth in the morning. [facility] phentermine 37.5 mg tablet 3-0 24 00:00: 00 Yes 37.5mg Take 1 tablet by mouth in the morning. [facility] phentermine 37.5 mg tablet 3-0 24 00:00: 00 Yes 37.5mg Take 1 tablet by mouth in the morning. [facility] phentermine 37.5 mg tablet 3-0 24 00:00: 00 Yes 37.5mg Take 1 tablet by mouth in the morning. [facility] diclofenac 75 mg EC tablet 3-0 11-16 00:00: 00 Yes TAKE ONE (1) TABLET(S) BY MOUTH TWICE A DAY NEEDED FOR PAIN. [facility] diclofenac 75 mg EC tablet 3-0 22 00:00: 00 Yes TAKE ONE (1) TABLET(S) BY MOUTH TWICE A DAY NEEDED FOR PAIN. [facility] diclofenac 75 mg EC tablet 3-0 22 00:00: 00 Yes TAKE ONE (1) TABLET(S) BY MOUTH TWICE A DAY NEEDED FOR PAIN. [facility] diclofenac 75 mg EC tablet 3-0 22 00:00: 00 Yes TAKE ONE (1) TABLET(S) BY MOUTH TWICE A DAY NEEDED FOR PAIN. [facility] diclofenac 75 mg EC tablet 3-0 11-16 00:00: 00 Yes TAKE ONE (1) TABLET(S) BY MOUTH TWICE A DAY NEEDED FOR PAIN. [facility] dicl[facility]ac [facility] mg EC tablet 3-0 11-16 00:00: 00 Yes TAKE ONE (1) TABLET(S) BY MOUTH TWICE A DAY NEEDED FOR PAIN. [facility] diclofenac 75 mg EC tablet 3-0 11-16 00:00: 00 Yes TAKE ONE (1) TABLET(S) BY MOUTH TWICE A DAY NEEDED FOR PAIN. [facility] diclofenac 75 mg EC tablet 3-0 11-16 00:00: 00 Yes TAKE ONE (1) TABLET(S) BY MOUTH TWICE A DAY NEEDED FOR PAIN. [facility] diclofenac 75 mg EC tablet 3-0 11-16 00:00: 00 Yes TAKE ONE (1) TABLET(S) BY MOUTH TWICE A DAY NEEDED FOR PAIN. [facility] diclofenac 75 mg EC tablet 3-0 11-16 00:00: 00 Yes TAKE ONE (1) TABLET(S) BY MOUTH TWICE A DAY NEEDED FOR PAIN. [facility] diclofenac 75 mg EC tablet 3-0 11-16 00:00: 00 Yes TAKE ONE (1) TABLET(S) BY MOUTH TWICE A DAY NEEDED FOR PAIN. [facility] diclofenac 75 mg EC tablet 3-0 11-16 00:00: 00 Yes TAKE ONE (1) TABLET(S) BY MOUTH TWICE A DAY NEEDED FOR PAIN. [facility] diclofenac 75 mg EC tablet 3-0 11-16 00:00: 00 Yes TAKE ONE (1) TABLET(S) BY MOUTH TWICE A DAY NEEDED FOR PAIN. [facility] diclofenac 75 mg EC tablet 3-0 11-16 00:00: 00 Yes TAKE ONE (1) TABLET(S) BY MOUTH TWICE A DAY NEEDED FOR PAIN. [facility] diclofenac 75 mg EC tablet 3-0 11-16 00:00: 00 Yes TAKE ONE (1) TABLET(S) BY MOUTH TWICE A DAY NEEDED FOR PAIN. [facility] diclofenac 75 mg EC tablet 3 00:00: 00 Yes TAKE ONE (1) TABLET(S) BY MOUTH TWICE A DAY NEEDED FOR PAIN. [facility] diclofenac 75 mg EC tablet - 00:00: 00 Yes TAKE ONE (1) TABLET(S) BY MOUTH TWICE A DAY NEEDED FOR PAIN. [facility] diclofenac 75 mg EC tablet - 00:00: 00 Yes TAKE ONE (1) TABLET(S) BY MOUTH TWICE A DAY NEEDED FOR PAIN. [facility] amoxicillin -pot clavulanate 500 mg 500-125 mg tablet 313 00:00: 00 11-30 00:00 :00 No TAKE ONE (1) TABLET(S) BY MOUTH TWICE A DAY FOR 5 DAYS. [facility] ketorolac (TORADOL) injection 30 mg 10-20 20:15: 00 10-20 19:28 :00 No [id number] 30mg [facility] ketorolac (TORADOL) injection 30 mg 10-20 20:15: 00 10-20 19:28 :00 No [id number] 30mg 30 mg, Intramuscu lar, ONCE, 1 dose, On Trisha 10/20/22 at 1415, Routine [facility] meloxicam (MOBIC) 15 mg tablet 10-20 00:00: 00 11-05 05:59 :00 No [id number] 15mg Take 1 tablet by mouth in the morning for 15 days. [facility] methocarbam oL (ROBAXIN-75 0) 750 mg tablet 10-20 00:00: 00 10-31 05:59 :00 No [id number] 750mg Take 1 tablet by mouth 4 (four) times daily for 10 days. [facility] cloNIDine 0.1 mg tablet 6-15 00:00: 00 Yes .1mg Take 0.1 mg by mouth in the morning and 0.1 mg in the evening. [facility] cloNIDine 0.1 mg tablet 2022-0 6-15 00:00: 00 Yes .1mg Take 0.1 mg by mouth in the morning and 0.1 mg in the evening. [facility] cloNIDine 0.1 mg tablet 2022-0 6-15 00:00: 00 Yes .1mg Take 0.1 mg by mouth in the morning and 0.1 mg in the evening. [facility] cloNIDine 0.1 mg tablet 2022-0 6-15 00:00: 00 Yes .1mg Take 0.1 mg by mouth in the morning and 0.1 mg in the evening. [facility] cloNIDine 0.1 mg tablet 2022-0 6-15 00:00: 00 Yes .1mg Take 0.1 mg by mouth in the morning and 0.1 mg in the evening. [facility] cloNIDine 0.1 mg tablet 2022-0 6-15 00:00: 00 Yes .1mg Take 0.1 mg by mouth in the morning and 0.1 mg in the evening. [facility] cloNIDine 0.1 mg tablet 2022-0 6-15 00:00: 00 Yes .1mg Take 0.1 mg by mouth in the morning and 0.1 mg in the evening. [facility] cloNIDine 0.1 mg tablet 2022-0 6-15 00:00: 00 Yes .1mg Take 0.1 mg by mouth in the morning and 0.1 mg in the evening. [facility] cloNIDine 0.1 mg tablet 2022-0 6-15 00:00: 00 Yes .1mg Take 0.1 mg by mouth in the morning and 0.1 mg in the evening. [facility] cloNIDine 0.1 mg tablet 2022-0 6-15 00:00: 00 Yes .1mg Take 0.1 mg by mouth in the morning and 0.1 mg in the evening. [facility] cloNIDine 0.1 mg tablet 2022-0 6-15 00:00: 00 Yes .1mg Take 0.1 mg by mouth in the morning and 0.1 mg in the evening. [facility] cloNIDine 0.1 mg tablet 2022-0 6-15 00:00: 00 Yes .1mg Take 0.1 mg by mouth in the morning and 0.1 mg in the evening. [facility] cloNIDine 0.1 mg tablet 2022-0 6-15 00:00: 00 Yes .1mg Take 0.1 mg by mouth in the morning and 0.1 mg in the evening. [facility] cloNIDine 0.1 mg tablet 2022-0 6-15 00:00: 00 Yes .1mg Take 0.1 mg by mouth in the morning and 0.1 mg in the evening. [facility] cloNIDine 0.1 mg tablet 2022-0 6-15 00:00: 00 Yes .1mg Take 0.1 mg by mouth in the morning and 0.1 mg in the evening. [facility] cloNIDine 0.1 mg tablet 2022-0 6-15 00:00: 00 Yes .1mg Take 0.1 mg by mouth in the morning and 0.1 mg in the evening. [facility] cloNIDine 0.1 mg tablet 2022-0 6-15 00:00: 00 Yes .1mg Take 0.1 mg by mouth in the morning and 0.1 mg in the evening. [facility] cloNIDine 0.1 mg tablet 2022-0 6-15 00:00: 00 Yes .1mg Take 0.1 mg by mouth in the morning and 0.1 mg in the evening. [facility] cloNIDine 0.1 mg tablet 2022-0 6-15 00:00: 00 Yes .1mg Take 0.1 mg by mouth in the morning and 0.1 mg in the evening. [facility] cloNIDine 0.1 mg tablet 2022-0 6-15 00:00: 00 Yes .1mg Take 0.1 mg by mouth in the morning and 0.1 mg in the evening. [facility] cloNIDine 0.1 mg tablet 2022-0 6-15 00:00: 00 Yes .1mg Take 0.1 mg by mouth in the morning and 0.1 mg in the evening. [facility] cloNIDine 0.1 mg tablet 2022-0 6-15 00:00: 00 Yes .1mg Take 0.1 mg by mouth in the morning and 0.1 mg in the evening. [facility] cloNIDine 0.1 mg tablet 2021-0 15 00:00: 00 Yes .1mg Take 0.1 mg by mouth in the morning and 0.1 mg in the evening. [facility] cloNIDine 0.1 mg tablet 2021-0 -15 00:00: 00 Yes .1mg Take 0.1 mg by mouth in the morning and 0.1 mg in the evening. [facility] cloNIDine 0.1 mg tablet 2021-0 15 00:00: 00 Yes .1mg Take 0.1 mg by mouth in the morning and 0.1 mg in the evening. [facility] cloNIDine 0.1 mg tablet 2-0 15 00:00: 00 Yes .1mg Take 0.1 mg by mouth in the morning and 0.1 mg in the evening. [facility] enalapril 10 mg tablet 2020-0 12 14:26: 40 Yes Take by mouth daily. [facility] enalapril 10 mg tablet 2020-0 12 14:26: 40 Yes Take by mouth daily. [facility] enalapril 10 mg tablet 2020-0 12 14:26: 40 Yes Take by mouth daily. [facility] enalapril 10 mg tablet 2020-0 12 14:26: 40 Yes Take by mouth daily. [facility] enalapril 10 mg tablet 2020-0 12 14:26: 40 Yes Take by mouth daily. [facility] enalapril 10 mg tablet 2020-0 12 14:26: 40 Yes Take by mouth daily. [facility] enalapril 10 mg tablet 2020-0 12 14:26: 40 Yes Take by mouth daily. [facility] enalapril 10 mg tablet 2020-0 12 14:26: 40 Yes Take by mouth daily. [facility] enalapril 10 mg tablet 2020-0 -12 14:26: 40 Yes Take by mouth daily. [facility] enalapril 10 mg tablet 2020-0 1-12 14:26: 40 Yes Take by mouth daily. [facility] enalapril 10 mg tablet 0 09-08 14:26: 40 Yes Take by mouth daily. [facility] enalapril 10 mg tablet 09-08 14:26: 40 Yes Take by mouth daily. [facility] enalapril 10 mg tablet 09-08 14:26: 40 Yes Take by mouth daily. [facility] enalapril 10 mg tablet 09-08 14:26: 40 Yes Take by mouth daily. [facility] enalapril 10 mg tablet 09-08 14:26: 40 Yes Take by mouth daily. [facility] enalapril 10 mg tablet 09-08 14:26: 40 Yes Take by mouth daily. [facility] enalapril 10 mg tablet 09-08 14:26: 40 Yes Take by mouth daily. [facility] enalapril 10 mg tablet 09-08 14:26: 40 Yes Take by mouth daily. [facility] enalapril 10 mg tablet 09-08 14:26: 40 Yes Take by mouth daily. [facility] enalapril 10 mg tablet 09-08 14:26: 40 Yes Take by mouth daily. [facility] enalapril 10 mg tablet 09-08 14:26: 40 Yes Take by mouth daily. [facility] enalapril 10 mg tablet 09-08 14:26: 40 Yes Take by mouth daily. [facility] enalapril 10 mg tablet 09-08 14:26: 40 Yes Take by mouth daily. [facility] enalapril 10 mg tablet 09-08 14:26: 40 Yes Take by mouth daily. [facility] enalapril 10 mg tablet 0 09-08 14:26: 40 Yes Take by mouth daily. [facility] enalapril 10 mg tablet 09-08 14:26: 40 Yes Take by mouth daily. [facility] enalapril 10 mg tablet 09-08 14:26: 40 Yes Take by mouth daily. [facility] SERTraline 100 mg tablet 2019-08 00:00: 00 Yes 1{tbl} Take 1 tablet by mouth daily. [facility] SERTraline 100 mg tablet 2019-08 00:00: 00 Yes 1{tbl} Take 1 tablet by mouth daily. [facility] SERTraline 100 mg tablet 2019-08 00:00: 00 Yes 1{tbl} Take 1 tablet by mouth daily. [facility] SERTraline 100 mg tablet 2019-08 00:00: 00 Yes 1{tbl} Take 1 tablet by mouth daily. [facility] SERTraline 100 mg tablet 2019-08 00:00: 00 Yes 1{tbl} Take 1 tablet by mouth daily. [facility] SERTraline 100 mg tablet 2019-08 00:00: 00 Yes 1{tbl} Take 1 tablet by mouth daily. [facility] SERTraline 100 mg tablet 2019-08 00:00: 00 Yes 1{tbl} Take 1 tablet by mouth daily. [facility] SERTraline 100 mg tablet 2019-08 00:00: 00 Yes 1{tbl} Take 1 tablet by mouth daily. [facility] SERTraline 100 mg tablet 2019-08 00:00: 00 11-30 00:00 :00 No 1{tbl} Take 1 tablet by mouth daily. [facility] Azithromyci n Azithromyci n 03-20 00:00: 00 03-25 00:00 :00 No Kaylen Turk 2 tablets on the first day, then 1 tablet daily for 4 days [facility] Sertraline HCl Sertraline HCl 03-10 00:00: 00 Yes Kaylen Turk 1 tablet [facility] Enalapril Maleate Enalapril Maleate 2018-10-24 00:00: 00 Yes Kaylen Turk 1 tablet [facility] Diclofenac Diclofenac Yes Kaylen Turk not defined [facility] Sertraline HCl 100 MG Sertraline HCl 100 MG No 2{table t} Sertraline HCl 100 MG Rosuvastati n Calcium 20 MG Rosuvastati n Calcium 20 MG No Rosuvastat in Calcium 20 MG Diclofenac Sodium 75 MG Diclofenac Sodium 75 MG No Diclofenac Sodium 75 MG Ondansetron 4 MG Ondansetron 4 MG No Ondansetro n 4 MG cloNIDine HCl 0.1 MG cloNIDine HCl 0.1 MG No 1{table t} QD cloNIDine HCl 0.1 MG Diclofenac Sodium 75 MG Diclofenac Sodium 75 MG No Diclofenac Sodium 75 MG Sertraline HCl 100 MG Sertraline HCl 100 MG No Sertraline HCl 100 MG Diclofenac Diclofenac No Diclofenac cloNIDine HCl 0.1 MG cloNIDine HCl 0.1 MG No cloNIDine HCl 0.1 MG Gabapentin 300 MG Gabapentin 300 MG No 1{capsu le} BID Gabapentin 300 MG Ondansetron 4 MG Ondansetron 4 MG No Ondansetro n 4 MG Rosuvastati n Calcium 20 MG Rosuvastati n Calcium 20 MG No Rosuvastat in Calcium 20 MG Sertraline HCl 100 MG Sertraline HCl 100 MG No Sertraline HCl 100 MG Diclofenac Diclofenac No Diclofenac Crestor 20 MG Crestor 20 MG No Crestor 20 MG Diclofenac Sodium 75 MG Diclofenac Sodium 75 MG No Diclofenac Sodium 75 MG Crestor 20 MG Crestor 20 MG No Crestor 20 MG Sertraline HCl 100 MG Sertraline HCl 100 MG No Sertraline HCl 100 MG Ondansetron 4 MG Ondansetron 4 MG No Ondansetro n 4 MG Sertraline HCl 100 MG Sertraline HCl 100 MG No 2{table t} Sertraline HCl 100 MG Rosuvastati n Calcium 20 MG Rosuvastati n Calcium 20 MG No Rosuvastat in Calcium 20 MG cloNIDine HCl 0.1 MG cloNIDine HCl 0.1 MG No cloNIDine HCl 0.1 MG Gabapentin 300 MG Gabapentin 300 MG No 1{capsu le} BID Gabapentin 300 MG Ondansetron 4 MG Ondansetron 4 MG No 1{table t__ e_tongu e_and_a llow_to _dissol ve} TID Ondansetro n 4 MG cloNIDine HCl 0.1 MG cloNIDine HCl 0.1 MG No 1{table t} BID cloNIDine HCl 0.1 MG Diclofenac Diclofenac No Diclofenac Diclofenac Sodium 75 MG Diclofenac Sodium 75 MG No Diclofenac Sodium 75 MG Ondansetron 4 MG Ondansetron 4 MG No Ondansetro n 4 MG Sertraline HCl 100 MG Sertraline HCl 100 MG No Sertraline HCl 100 MG Crestor 20 MG Crestor 20 MG No Crestor 20 MG Sertraline HCl 100 MG Sertraline HCl 100 MG No 2{table t} Sertraline HCl 100 MG Rosuvastati n Calcium 20 MG Rosuvastati n Calcium 20 MG No Rosuvastat in Calcium 20 MG cloNIDine HCl 0.1 MG cloNIDine HCl 0.1 MG No cloNIDine HCl 0.1 MG Gabapentin 300 MG Gabapentin 300 MG No 1{capsu le} BID Gabapentin 300 MG Ondansetron 4 MG Ondansetron 4 MG No 1{table t_ e_u e_and_a llow_to _dissol ve} TID Ondansetro n 4 MG cloNIDine HCl 0.1 MG cloNIDine HCl 0.1 MG No 1{table t} BID cloNIDine HCl 0.1 MG Diclofenac Diclofenac No Diclofenac Diclofenac Sodium 75 MG Diclofenac Sodium 75 MG No Diclofenac Sodium 75 MG Ondansetron 4 MG Ondansetron 4 MG No Ondansetro n 4 MG Sertraline HCl 100 MG Sertraline HCl 100 MG No Sertraline HCl 100 MG Crestor 20 MG Crestor 20 MG No Crestor 20 MG Sertraline HCl 100 MG Sertraline HCl 100 MG No 2{table t} Sertraline HCl 100 MG Rosuvastati n Calcium 20 MG Rosuvastati n Calcium 20 MG No Rosuvastat in Calcium 20 MG cloNIDine HCl 0.1 MG cloNIDine HCl 0.1 MG No cloNIDine HCl 0.1 MG Gabapentin 300 MG Gabapentin 300 MG No 1{capsu le} BID Gabapentin 300 MG Ondansetron 4 MG Ondansetron 4 MG No 1{table t_ e_tongu e_and_a llow_to _dissol ve} TID Ondansetro n 4 MG cloNIDine HCl 0.1 MG cloNIDine HCl 0.1 MG No 1{table t} BID cloNIDine HCl 0.1 MG Diclofenac Diclofenac No Diclofenac Gabapentin 300 MG Gabapentin 300 MG No 1{capsu le} BID Gabapentin 300 MG Sertraline HCl 100 MG Sertraline HCl 100 MG No Sertraline HCl 100 MG Ondansetron 4 MG Ondansetron 4 MG No Ondansetro n 4 MG Diclofenac Diclofenac No Diclofenac Sertraline HCl 100 MG Sertraline HCl 100 MG No 2{table t} Sertraline HCl 100 MG Crestor 20 MG Crestor 20 MG No Crestor 20 MG cloNIDine HCl 0.1 MG cloNIDine HCl 0.1 MG No 1{table t} BID cloNIDine HCl 0.1 MG Diclofenac Sodium 75 MG Diclofenac Sodium 75 MG No Diclofenac Sodium 75 MG Rosuvastati n Calcium 20 MG Rosuvastati n Calcium 20 MG No Rosuvastat in Calcium 20 MG cloNIDine HCl 0.1 MG cloNIDine HCl 0.1 MG No cloNIDine HCl 0.1 MG Ondansetron 4 MG Ondansetron 4 MG No Ondansetro n 4 MG Crestor 20 MG Crestor 20 MG No Crestor 20 MG cloNIDine HCl 0.1 MG cloNIDine HCl 0.1 MG No 1{table t} BID cloNIDine HCl 0.1 MG Sertraline HCl 100 MG Sertraline HCl 100 MG No Sertraline HCl 100 MG Ondansetron 4 MG Ondansetron 4 MG No 1{table t_ e_tongu e_and_a llow_to _dissol ve} TID Ondansetro n 4 MG Gabapentin 300 MG Gabapentin 300 MG No 1{capsu le} BID Gabapentin 300 MG Diclofenac Sodium 75 MG Diclofenac Sodium 75 MG No Diclofenac Sodium 75 MG Diclofenac Diclofenac No Diclofenac Rosuvastati n Calcium 20 MG Rosuvastati n Calcium 20 MG No Rosuvastat in Calcium 20 MG cloNIDine HCl 0.1 MG cloNIDine HCl 0.1 MG No cloNIDine HCl 0.1 MG Sertraline HCl 100 MG Sertraline HCl 100 MG No 2{table t} Sertraline HCl 100 MG Ondansetron 4 MG Ondansetron 4 MG No 1{table t_ e_tongu e_and_a llow_to _dissol ve} TID Ondansetro n 4 MG Sertraline HCl 100 MG Sertraline HCl 100 MG No Sertraline HCl 100 MG cloNIDine HCl 0.1 MG cloNIDine HCl 0.1 MG No cloNIDine HCl 0.1 MG Crestor 20 MG Crestor 20 MG No Crestor 20 MG Gabapentin 300 MG Gabapentin 300 MG No 1{capsu le} BID Gabapentin 300 MG Sertraline HCl 100 MG Sertraline HCl 100 MG No 2{table t} Sertraline HCl 100 MG cloNIDine HCl 0.1 MG cloNIDine HCl 0.1 MG No 1{table t} BID cloNIDine HCl 0.1 MG Diclofenac Sodium 75 MG Diclofenac Sodium 75 MG No Diclofenac Sodium 75 MG Diclofenac Diclofenac No Diclofenac Rosuvastati n Calcium 20 MG Rosuvastati n Calcium 20 MG No Rosuvastat in Calcium 20 MG Ondansetron 4 MG Ondansetron 4 MG No Ondansetro n 4 MG Crestor 20 MG Crestor 20 MG No Crestor 20 MG Diclofenac Sodium 75 MG Diclofenac Sodium 75 MG No Diclofenac Sodium 75 MG Ondansetron 4 MG Ondansetron 4 MG No 1{table t_ e_tongu e_and_a llow_to _dissol ve} TID Ondansetro n 4 MG Gabapentin 300 MG Gabapentin 300 MG No 1{capsu le} BID Gabapentin 300 MG Sertraline HCl 100 MG Sertraline HCl 100 MG No 2{table t} Sertraline HCl 100 MG cloNIDine HCl 0.1 MG cloNIDine HCl 0.1 MG No 1{table t} BID cloNIDine HCl 0.1 MG Crestor 20 MG Crestor 20 MG No Crestor 20 MG Diclofenac Sodium 75 MG Diclofenac Sodium 75 MG No Diclofenac Sodium 75 MG Ondansetron 4 MG Ondansetron 4 MG No 1{table t_on e_tongu e_and_a llow_to _dissol ve} TID Ondansetro n 4 MG Gabapentin 300 MG Gabapentin 300 MG No 1{capsu le} BID Gabapentin 300 MG Sertraline HCl 100 MG Sertraline HCl 100 MG No 2{table t} Sertraline HCl 100 MG cloNIDine HCl 0.1 MG cloNIDine HCl 0.1 MG No 1{table t} BID cloNIDine HCl 0.1 MG Crestor 20 MG Crestor 20 MG No Crestor 20 MG Diclofenac Sodium 75 MG Diclofenac Sodium 75 MG No Diclofenac Sodium 75 MG Ondansetron 4 MG Ondansetron 4 MG No 1{table t_ e_tongu e_and_a llow_to _dissol ve} TID Ondansetro n 4 MG Gabapentin 300 MG Gabapentin 300 MG No 1{capsu le} BID Gabapentin 300 MG Sertraline HCl 100 MG Sertraline HCl 100 MG No 2{table t} Sertraline HCl 100 MG cloNIDine HCl 0.1 MG cloNIDine HCl 0.1 MG No 1{table t} BID cloNIDine HCl 0.1 MG Crestor 20 MG Crestor 20 MG No Crestor 20 MG Diclofenac Sodium 75 MG Diclofenac Sodium 75 MG No Diclofenac Sodium 75 MG Ondansetron 4 MG Ondansetron 4 MG No 1{table t_on e_tongu e_and_a llow_to _dissol ve} TID Ondansetro n 4 MG Gabapentin 300 MG Gabapentin 300 MG No 1{capsu le} BID Gabapentin 300 MG Sertraline HCl 100 MG Sertraline HCl 100 MG No 2{table t} Sertraline HCl 100 MG cloNIDine HCl 0.1 MG cloNIDine HCl 0.1 MG No 1{table t} BID cloNIDine HCl 0.1 MG Crestor 20 MG Crestor 20 MG No Crestor 20 MG Diclofenac Sodium 75 MG Diclofenac Sodium 75 MG No Diclofenac Sodium 75 MG Ondansetron 4 MG Ondansetron 4 MG No 1{table t_on e_tongu e_and_a llow_to _dissol ve} TID Ondansetro n 4 MG Gabapentin 300 MG Gabapentin 300 MG No 1{capsu le} BID Gabapentin 300 MG Sertraline HCl 100 MG Sertraline HCl 100 MG No 2{table t} Sertraline HCl 100 MG cloNIDine HCl 0.1 MG cloNIDine HCl 0.1 MG No 1{table t} BID cloNIDine HCl 0.1 MG Crestor 20 MG Crestor 20 MG No Crestor 20 MG Diclofenac Sodium 75 MG Diclofenac Sodium 75 MG No Diclofenac Sodium 75 MG Ondansetron 4 MG Ondansetron 4 MG No 1{table t_on e_tongu e_and_a llow_to _dissol ve} TID Ondansetro n 4 MG Gabapentin 300 MG Gabapentin 300 MG No 1{capsu le} BID Gabapentin 300 MG Sertraline HCl 100 MG Sertraline HCl 100 MG No 2{table t} Sertraline HCl 100 MG cloNIDine HCl 0.1 MG cloNIDine HCl 0.1 MG No 1{table t} BID cloNIDine HCl 0.1 MG Diclofenac Diclofenac No Diclofenac Sertraline HCl 100 MG Sertraline HCl 100 MG No Sertraline HCl 100 MG Gabapentin 300 MG Gabapentin 300 MG No 1{capsu le} BID Gabapentin 300 MG Diclofenac Sodium 75 MG Diclofenac Sodium 75 MG No Diclofenac Sodium 75 MG cloNIDine HCl 0.1 MG cloNIDine HCl 0.1 MG No 1{table t} QD cloNIDine HCl 0.1 MG cloNIDine HCl 0.1 MG cloNIDine HCl 0.1 MG No cloNIDine HCl 0.1 MG Diclofenac Sodium 75 MG Diclofenac Sodium 75 MG No Diclofenac Sodium 75 MG Rosuvastati n Calcium 20 MG Rosuvastati n Calcium 20 MG No Rosuvastat in Calcium 20 MG Ondansetron 4 MG Ondansetron 4 MG No Ondansetro n 4 MG cloNIDine HCl 0.1 MG cloNIDine HCl 0.1 MG No cloNIDine HCl 0.1 MG Gabapentin 300 MG Gabapentin 300 MG No 1{capsu le} BID Gabapentin 300 MG Crestor 20 MG Crestor 20 MG No Crestor 20 MG Ondansetron 4 MG Ondansetron 4 MG No 1{table t__ e_tongu e_and_a llow_to _dissol ve} TID Ondansetro n 4 MG Diclofenac Sodium 75 MG Diclofenac Sodium 75 MG 02-10 00:00 :00 No Diclofenac Sodium 75 MG Diclofenac Sodium 75 MG Diclofenac Sodium 75 MG 02-10 00:00 :00 No Diclofenac Sodium 75 MG Diclofenac Sodium Diclofenac Sodium 05-15 00:00 :00 No Kaylen Turk 1 tablet as needed for pain [facility] Immunizations Ordered Immunization Name Filled Immunization Name Date Status Comments Source Flucelvax - single dose syringe Flucelvax - single dose syringe 2022-05-11 15:26:00 Completed [facility] Flucelvax - single dose syringe Flucelvax - single dose syringe 2022-05-11 15:26:00 Completed [facility] SARS-COV-2 COVID-19 PFIZER VACCINE 2020-11-14 00:00:00 Completed [facility] SARS-COV-2 COVID-19 PFIZER VACCINE 2020-11-14 00:00:00 Completed [facility] SARS-COV-2 COVID-19 PFIZER VACCINE 2020-11-14 00:00:00 Completed [facility] SARS-COV-2 COVID-19 PFIZER VACCINE 2020-11-14 00:00:00 Completed [facility] SARS-COV-2 COVID-19 PFIZER VACCINE 2020-11-14 00:00:00 Completed [facility] SARS-COV-2 COVID-19 PFIZER VACCINE 2020-11-14 00:00:00 Completed [facility] SARS-COV-2 COVID-19 PFIZER VACCINE 2020-11-14 00:00:00 Completed [facility] SARS-COV-2 COVID-19 PFIZER VACCINE 2020-11-14 00:00:00 Completed [facility] SARS-COV-2 COVID-19 PFIZER VACCINE 2020-11-14 00:00:00 Completed [facility] SARS-COV-2 COVID-19 PFIZER VACCINE 2020-11-14 00:00:00 Completed [facility] SARS-COV-2 COVID-19 PFIZER VACCINE 2020-11-14 00:00:00 Completed [facility] SARS-COV-2 COVID-19 PFIZER VACCINE 2020-11-14 00:00:00 Completed [facility] SARS-COV-2 COVID-19 PFIZER VACCINE 2020-11-14 00:00:00 Completed [facility] SARS-COV-2 COVID-19 PFIZER VACCINE 2020-11-14 00:00:00 Completed [facility] SARS-COV-2 COVID-19 PFIZER VACCINE 2020-11-14 00:00:00 Completed [facility] SARS-COV-2 COVID-19 PFIZER VACCINE 2020-11-14 00:00:00 Completed [facility] SARS-COV-2 COVID-19 PFIZER VACCINE 2020-11-14 00:00:00 Completed [facility] SARS-COV-2 COVID-19 PFIZER VACCINE 2020-11-14 00:00:00 Completed [facility] SARS-COV-2 COVID-19 PFIZER VACCINE 2020-11-14 00:00:00 Completed [facility] SARS-COV-2 COVID-19 PFIZER VACCINE 2020-11-14 00:00:00 Completed [facility] SARS-COV-2 COVID-19 PFIZER VACCINE 2020-11-14 00:00:00 Completed [facility] SARS-COV-2 COVID-19 PFIZER VACCINE 2020-11-14 00:00:00 Completed [facility] SARS-COV-2 COVID-19 PFIZER VACCINE 2020-10-24 00:00:00 Completed [facility] SARS-COV-2 COVID-19 PFIZER VACCINE 2020-10-24 00:00:00 Completed [facility] SARS-COV-2 COVID-19 PFIZER VACCINE 2020-10-24 00:00:00 Completed [facility] SARS-COV-2 COVID-19 PFIZER VACCINE 2020-10-24 00:00:00 Completed [facility] SARS-COV-2 COVID-19 PFIZER VACCINE 2020-10-24 00:00:00 Completed [facility] SARS-COV-2 COVID-19 PFIZER VACCINE 2020-10-24 00:00:00 Completed [facility] SARS-COV-2 COVID-19 PFIZER VACCINE 2020-10-24 00:00:00 Completed [facility] SARS-COV-2 COVID-19 PFIZER VACCINE 2020-10-24 00:00:00 Completed [facility] SARS-COV-2 COVID-19 PFIZER VACCINE 2020-10-24 00:00:00 Completed [facility] SARS-COV-2 COVID-19 PFIZER VACCINE 2020-10-24 00:00:00 Completed [facility] SARS-COV-2 COVID-19 PFIZER VACCINE 2020-10-24 00:00:00 Completed [facility] SARS-COV-2 COVID-19 PFIZER VACCINE 2020-10-24 00:00:00 Completed [facility] SARS-COV-2 COVID-19 PFIZER VACCINE 2020-10-24 00:00:00 Completed [facility] SARS-COV-2 COVID-19 PFIZER VACCINE 2020-10-24 00:00:00 Completed [facility] SARS-COV-2 COVID-19 PFIZER VACCINE 2020-10-24 00:00:00 Completed [facility] SARS-COV-2 COVID-19 PFIZER VACCINE 2020-10-24 00:00:00 Completed [facility] SARS-COV-2 COVID-19 PFIZER VACCINE 2020-10-24 00:00:00 Completed [facility] SARS-COV-2 COVID-19 PFIZER VACCINE 2020-10-24 00:00:00 Completed [facility] SARS-COV-2 COVID-19 PFIZER VACCINE 2020-10-24 00:00:00 Completed [facility] SARS-COV-2 COVID-19 PFIZER VACCINE 2020-10-24 00:00:00 Completed [facility] SARS-COV-2 COVID-19 PFIZER VACCINE 2020-10-24 00:00:00 Completed [facility] SARS-COV-2 COVID-19 PFIZER VACCINE 2020-10-24 00:00:00 Completed [facility] Influenza Virus Vaccine (3+ yrs) 2020-07-27 00:00:00 Completed [facility] Influenza Virus Vaccine (3+ yrs) 2020-07-27 00:00:00 Completed [facility] Influenza Virus Vaccine (3+ yrs) 2020-07-27 00:00:00 Completed [facility] Influenza Virus Vaccine (3+ yrs) 2020-07-27 00:00:00 Completed [facility] Influenza Virus Vaccine (3+ yrs) 2020-07-27 00:00:00 Completed [facility] Influenza Virus Vaccine (3+ yrs) 2020-07-27 00:00:00 Completed [facility] Influenza Virus Vaccine (3+ yrs) 2020-07-27 00:00:00 Completed [facility] Influenza Virus Vaccine (3+ yrs) 2020-07-27 00:00:00 Completed [facility] Influenza Virus Vaccine (3+ yrs) 2020-07-27 00:00:00 Completed [facility] Influenza Virus Vaccine (3+ yrs) 2020-07-27 00:00:00 Completed [facility] Influenza Virus Vaccine (3+ yrs) 2020-07-27 00:00:00 Completed [facility] Influenza Virus Vaccine (3+ yrs) 2020-07-27 00:00:00 Completed [facility] Influenza Virus Vaccine (3+ yrs) 2020-07-27 00:00:00 Completed [facility] Influenza Virus Vaccine (3+ yrs) 2020-07-27 00:00:00 Completed [facility] Influenza Virus Vaccine (3+ yrs) 2020-07-27 00:00:00 Completed [facility] Influenza Virus Vaccine (3+ yrs) 2020-07-27 00:00:00 Completed [facility] Influenza Virus Vaccine (3+ yrs) 2020-07-27 00:00:00 Completed [facility] Influenza Virus Vaccine (3+ yrs) 2020-07-27 00:00:00 Completed [facility] Influenza Virus Vaccine (3+ yrs) 2020-07-27 00:00:00 Completed [facility] Influenza Virus Vaccine (3+ yrs) 2020-07-27 00:00:00 Completed [facility] Influenza Virus Vaccine (3+ yrs) 2020-07-27 00:00:00 Completed [facility] Influenza Virus Vaccine (3+ yrs) 2020-07-27 00:00:00 Completed [facility] Flucelvax - single dose syringe Flucelvax - single dose syringe 2020-07-08 16:39:00 Completed [facility] Flucelvax - single dose syringe Flucelvax - single dose syringe 2020-07-08 16:39:00 Completed [facility] Flucelvax - single dose syringe Flucelvax - single dose syringe 2020-07-08 16:39:00 Completed [facility] Flucelvax - single dose syringe Flucelvax - single dose syringe 2020-07-08 16:39:00 Completed [facility] Flucelvax - single dose syringe Flucelvax - single dose syringe 2020-07-08 16:39:00 Completed [facility] Flucelvax - single dose syringe Flucelvax - single dose syringe 2020-07-08 16:39:00 Completed [facility] Flucelvax - single dose syringe Flucelvax - single dose syringe 2020-07-08 16:39:00 Completed [facility] Flucelvax - single dose syringe Flucelvax - single dose syringe 2020-07-08 16:39:00 Completed [facility] Flucelvax - single dose syringe Flucelvax - single dose syringe 2020-07-08 16:39:00 Completed [facility] TDAP 2015-08-04 00:00:00 Completed [facility] TDAP 2015-08-04 00:00:00 Completed [facility] TDAP 2015-08-04 00:00:00 Completed [facility] TDAP 2015-08-04 00:00:00 Completed [facility] TDAP 2015-08-04 00:00:00 Completed [facility] TDAP 2015-08-04 00:00:00 Completed [facility] TDAP 2015-08-04 00:00:00 Completed [facility] TDAP 2015-08-04 00:00:00 Completed [facility] TDAP 2015-08-04 00:00:00 Completed [facility] TDAP 2015-08-04 00:00:00 Completed [facility] TDAP 2015-08-04 00:00:00 Completed [facility] TDAP 2015-08-04 00:00:00 Completed [facility] TDAP 2015-08-04 00:00:00 Completed [facility] TDAP 2015-08-04 00:00:00 Completed [facility] TDAP 2015-08-04 00:00:00 Completed [facility] TDAP 2015-08-04 00:00:00 Completed [facility] TDAP 2015-08-04 00:00:00 Completed [facility] TDAP 2015-08-04 00:00:00 Completed [facility] TDAP 2015-08-04 00:00:00 Completed [facility] TDAP 2015-08-04 00:00:00 Completed [facility] TDAP 2015-08-04 00:00:00 Completed [facility] TDAP 2015-08-04 00:00:00 Completed [facility] Flucelvax - single dose syringe Flucelvax - single dose syringe Unknown Completed [facility] Flucelvax - single dose syringe Flucelvax - single dose syringe Unknown Completed [facility] Flucelvax - single dose syringe Flucelvax - single dose syringe Unknown Completed [facility] Flucelvax - single dose syringe Flucelvax - single dose syringe Unknown Completed [facility] Flucelvax - single dose syringe Flucelvax - single dose syringe Unknown Completed [facility] Flucelvax - single dose syringe Flucelvax - single dose syringe Unknown Completed [facility] Flucelvax - single dose syringe Flucelvax - single dose syringe Unknown Completed [facility] Flucelvax - single dose syringe Flucelvax - single dose syringe Unknown Completed [facility] Flucelvax (ccIIV4) - SDS - 0.5mL Flucelvax (ccIIV4) - SDS - 0.5mL Unknown Completed [facility] Flucelvax (ccIIV4) - SDS - 0.5mL Flucelvax (ccIIV4) - SDS - 0.5mL Unknown Completed [facility] Flucelvax (ccIIV4) - SDS - 0.5mL Flucelvax (ccIIV4) - SDS - 0.5mL Unknown Completed [facility] Flucelvax (ccIIV4) - SDS - 0.5mL Flucelvax (ccIIV4) - SDS - 0.5mL Unknown Completed [facility] TDAP Unknown Completed [facility] Influenza Virus Vaccine (3+ yrs) Unknown Completed [facility] SARS-COV-2 COVID-19 PFIZER VACCINE Unknown Completed [facility] SARS-COV-2 COVID-19 PFIZER VACCINE Unknown Completed [facility] TDAP Unknown Completed [facility] Influenza Virus Vaccine (3+ yrs) Unknown Completed [facility] SARS-COV-2 COVID-19 PFIZER VACCINE Unknown Completed [facility] SARS-COV-2 COVID-19 PFIZER VACCINE Unknown Completed [facility] TDAP Unknown Completed [facility] Influenza Virus Vaccine (3+ yrs) Unknown Completed [facility] SARS-COV-2 COVID-19 PFIZER VACCINE Unknown Completed [facility] SARS-COV-2 COVID-19 PFIZER VACCINE Unknown Completed [facility] TDAP Unknown Completed [facility] Influenza Virus Vaccine (3+ yrs) Unknown Completed [facility] SARS-COV-2 COVID-19 PFIZER VACCINE Unknown Completed [facility] SARS-COV-2 COVID-19 PFIZER VACCINE Unknown Completed [facility] TDAP Unknown Completed [facility] Influenza Virus Vaccine (3+ yrs) Unknown Completed [facility] SARS-COV-2 COVID-19 PFIZER VACCINE Unknown Completed [facility] SARS-COV-2 COVID-19 PFIZER VACCINE Unknown Completed [facility] Vital Signs Vital Name Observation Time Observation Value Comments S ource Systolic blood pressure 2023-08-01 23:53:00 127 mm[Hg] [facility] Diastolic blood pressure 2023-08-01 23:53:00 62 mm[Hg] [facility] Heart rate 2023-08-01 23:52:00 68 /min [facility] Body temperature 2023-08-01 23:52:00 36.39 Yadi [facility] Respiratory rate 2023-08-01 23:52:00 16 /min [facility] Body height 2023-08-01 23:52:00 160 cm [facility] Body weight 2023-08-01 23:52:00 107.639 kg [facility] BMI 2023-08-01 23:52:00 42.04 kg/m2 [facility] Oxygen saturation in Arterial blood by Pulse oximetry 2023-08-01 23:52:00 99 /min [facility] height 2023-05-17 11:50:00 63 [in_i] Commo n [facility] weight 2023-05-17 11:50:00 220 [lb_av] Comm on [facility] bmi 2023-05-17 11:50:00 38.97 kg/m2 Comm on [facility] blood pressure systolic 2023-05-17 11:50:00 132 mm[Hg] [facility] blood pressure diastolic 2023-05-17 11:50:00 70 mm[Hg] [facility] Systolic blood pressure 2022-12-08 20:34:00 138 mm[Hg] [facility] Diastolic blood pressure 2022-12-08 20:34:00 75 mm[Hg] [facility] Heart rate 2022-12-08 20:34:00 73 /min [facility] Body temperature 2022-12-08 20:34:00 36.78 Yadi [facility] Respiratory rate 2022-12-08 20:34:00 18 /min [facility] Body height 2022-12-08 20:34:00 160 cm [facility] Body weight 2022-12-08 20:34:00 109.77 kg [facility] BMI 2022-12-08 20:34:00 42.87 kg/m2 [facility] Systolic blood pressure 2022-12-04 22:55:00 163 mm[Hg] [facility] Diastolic blood pressure 2022-12-04 22:55:00 95 mm[Hg] [facility] Heart rate 2022-12-04 22:55:00 94 /min [facility] Body temperature 2022-12-04 22:55:00 36.61 Yadi [facility] Respiratory rate 2022-12-04 22:55:00 20 /min [facility] Body height 2022-12-04 22:55:00 160 cm [facility] Body weight 2022-12-04 22:55:00 104.101 kg [facility] BMI 2022-12-04 22:55:00 40.65 kg/m2 [facility] Oxygen saturation in Arterial blood by Pulse oximetry 2022-12-04 22:55:00 98 /min [facility] Systolic blood pressure 2022-11-30 18:35:00 136 mm[Hg] [facility] Diastolic blood pressure 2022-11-30 18:35:00 81 mm[Hg] [facility] Heart rate 2022-11-30 18:35:00 70 /min [facility] Body temperature 2022-11-30 18:35:00 36.89 Yadi [facility] Respiratory rate 2022-11-30 18:35:00 18 /min [facility] Body height 2022-11-30 18:35:00 160 cm [facility] Body weight 2022-11-30 18:35:00 105.235 kg [facility] BMI 2022-11-30 18:35:00 41.10 kg/m2 [facility] Oxygen saturation in Arterial blood by Pulse oximetry 2022-11-30 18:35:00 99 /min [facility] height 2022-11-14 11:40:00 63 [in_i] Commo n [facility] weight 2022-11-14 11:40:00 240 [lb_av] Comm on [facility] bmi 2022-11-14 11:40:00 42.51 kg/m2 Comm on [facility] blood pressure systolic 2022-11-14 11:40:00 130 mm[Hg] [facility] blood pressure diastolic 2022-11-14 11:40:00 74 mm[Hg] [facility] Systolic blood pressure 2022-10-20 18:56:00 101 mm[Hg] [facility] Diastolic blood pressure 2022-10-20 18:56:00 70 mm[Hg] [facility] Heart rate 2022-10-20 18:56:00 74 /min [facility] Body temperature 2022-10-20 18:56:00 36.72 Yadi [facility] Respiratory rate 2022-10-20 18:56:00 16 /min [facility] Body height 2022-10-20 18:56:00 160 cm [facility] Body weight 2022-10-20 18:56:00 109.498 kg [facility] BMI 2022-10-20 18:56:00 42.76 kg/m2 [facility] Oxygen saturation in Arterial blood by Pulse oximetry 2022-10-20 18:56:00 96 /min [facility] height 2022-05-11 14:30:00 63 [in_i] Commo n [facility] weight 2022-05-11 14:30:00 227.2 [lb_av] Co mmon [facility] temperature 2022-05-11 14:30:00 97.4 [degF] Com mon [facility] bmi 2022-05-11 14:30:00 40.24 kg/m2 Comm on [facility] oximetry 2022-05-11 14:30:00 98 % Commo n [facility] respiratory rate 2022-05-11 14:30:00 18 /min [facility] blood pressure systolic 2022-05-11 14:30:00 135 mm[Hg] [facility] blood pressure diastolic 2022-05-11 14:30:00 76 mm[Hg] [facility] Systolic blood pressure 2022-03-21 21:28:00 127 mm[Hg] [facility] Diastolic blood pressure 2022-03-21 21:28:00 76 mm[Hg] [facility] Heart rate 2022-03-21 21:28:00 66 /min [facility] Body temperature 2022-03-21 21:28:00 36.67 Yadi [facility] Body height 2022-03-21 21:28:00 160 cm [facility] Body weight 2022-03-21 21:28:00 106.731 kg [facility] BMI 2022-03-21 21:28:00 41.68 kg/m2 [facility] height 2022-02-08 10:50:00 63 [in_i] Commo n [facility] weight 2022-02-08 10:50:00 230 [lb_av] Comm on [facility] temperature 2022-02-08 10:50:00 98 [degF] Comm on [facility] bmi 2022-02-08 10:50:00 40.74 kg/m2 Comm on [facility] blood pressure systolic 2022-02-08 10:50:00 154 mm[Hg] [facility] blood pressure diastolic 2022-02-08 10:50:00 87 mm[Hg] [facility] height 2021-07-27 08:10:00 63 [in_i] Commo n [facility] weight 2021-07-27 08:10:00 229 [lb_av] Comm on [facility] temperature 2021-07-27 08:10:00 98 [degF] Comm on [facility] bmi 2021-07-27 08:10:00 40.56 kg/m2 Comm on [facility] blood pressure systolic 2021-07-27 08:10:00 129 mm[Hg] [facility] blood pressure diastolic 2021-07-27 08:10:00 75 mm[Hg] [facility] Procedures Procedure Date / Time Performed Performing Clinician Source ASSIGNMENT OF BENEFITS 2023-08-01 23:26:18 Docto r Unassigned, [place] [facility] INSURANCE CORRESPONDENCE 2022-12-07 05:01:00 Doc tor Unassigned, [place] [facility] LIPASE 2022-12-04 23:34:00 Allyssa Gonzales [facility] TEST, SERUM 2022-12-04 23:34:00 Allyssa Gonzales [facility] COMP. METABOLIC PANEL ([id number]) 2022-12-04 23:34:00 Allyssa Gonzales [facility] TOTAL BETA HCG ASSAY 2022-12-04 23:34:00 Beck Donato i [facility] CBC WITH DIFF 2022-12-04 23:34:00 [facility] URIN[facility]YS[facility] 2022-12-04 23:34:00 Allyssa Gonzales [facility] RAPID INFLUENZA A/B 2022-12-04 23:34:00 Fredis Gonzales [facility] COVID-19 (ID NOW RAPID TESTING) 2022-12-04 23:34:00 Allyssa Gonzales [facility] CONSENT/REFUSAL FOR DIAGNOSIS AND TREATMENT 2022-12-04 22:45:24 Doctor Unassigned, [place] [facility] PATIENT FINANCIAL POLICY 2022-11-30 18:30:57 Doctor Unassigned, [place] [facility] [facility] EXTERNAL PROVIDER RECORDS 2022-05-19 05:01:00 Do ctor Unassigned, [place] [facility] EXTERNAL PROVIDER RECORDS 2022-05-09 05:01:00 Do ctor Unassigned, [place] [facility] EXTERNAL MAMMOGRAM 2022-05-06 13:05:00 Beatrice Harris [facility] HIGH RISK HPV-THIN PREP 2022-03-21 21:39:00 Vaughn Harris [facility] PAP SMEAR-LIQUID BASED-CP 2022-03-21 21:39:00 Vaughn Tenorio [facility] Encounters Start Date/Time End Date/Time Encounter Type Admission Type Attending [facility] Care Department Encounter ID Source 2023-09-13 13:48:00 Outpatient Turk, Kaylen STLC STLC [id number] [facility] 2023-08-29 08:14:00 Outpatient Turk, Kaylen STLC STLMLC [id number] [facility] 2022-08-11 16:22:00 Outpatient Turk, Kaylen STLC STLMLC [id number] [facility] 2022-05-10 11:55:00 Outpatient Turk, Kaylen STLC STLMLC [id number] [facility] 2021-09-22 13:37:51 Outpatient Turk, Kaylen STLC STLMLC [id number] [facility] 2021-09-22 13:34:11 Outpatient Turk, Kaylen STLC STLMLC [id number] [facility] 2021-09-22 13:34:04 Outpatient Turk, Kaylen STLC STLMLC [id number] [facility] 2021-09-22 13:09:22 Outpatient Turk, Kaylen STLC STLMLC [id number] [facility] 2021-09-22 12:39:29 Outpatient Kaylen Turk STLMLC STLMLC [id number] [facility] 2021-09-22 12:15:47 Outpatient Kaylen Turk STLMLC STLMLC [id number] [facility] 2021-09-22 12:14:55 Outpatient Shanita Ahmadi STLC STLMLC [id number] [facility] 2021-09-22 12:03:56 Outpatient STLC STLC [id number] [facility] 2021-09-22 11:50:51 [facility] [id number] [facility] 2021-09-22 11:32:57 Outpatient Barb Barton STLC STLC [id number] [facility] 2021-09-22 11:31:10 Outpatient Barb Barton STLC STLC [id number] [facility] 2021-09-22 11:14:06 Outpatient Barb Barton STLC STLC [id number] [facility] 2021-09-22 11:12:45 Outpatient Barb Barton STLC STLC [id number] [facility] 2023-10-12 11:30:00 2023-10-12 11:30:00 Outpatient R BRYANT-ELISEO S, SHARONDA BRYANT-ELISEO S, SHARONDA [facility] [id number] [facility] 2023-08-01 17:20:00 2023-08-01 17:59:59 Outpatient R JULIÁN GUIDO [facility] [id number] [facility] 2023-08-01 17:20:00 2023-08-01 17:59:59 Urgent Care Ebrahim, Rania Unknown, Attending [facility] 1.84.114 350.1.13.10 4.2.7.2.686 [id number] [facility] 2023-08-01 00:00:00 2023-08-01 00:00:00 Orders Only Doctor Unassigned, [place] [facility] 1.114 350.1.13.10 4.2.7.2.686 [id number] [facility] 2023-05-22 00:00:00 2023-05-22 00:00:00 (TEL) STLC STLMLC [id number] [facility] 2023-05-17 00:00:00 2023-05-17 00:00:00 OFFICE VISIT ESTAB PT LEVEL 4 STLMLC STLMLC [id number] [facility] 2023-03-21 15:00:00 2023-03-21 15:00:00 Outpatient R VAUGHN HARRIS CHERYAL [facility] [id number] [facility] 2023-03-14 00:00:00 2023-03-14 00:00:00 Pre Visit Outreach Sarah Dhaliwal 1.840.114 350.1.13.10 4.2.7.2.686 [id number] [facility] 2023-02-10 00:00:00 2023-02-10 00:00:00 (TEL) STLC STLMLC [id number] [facility] 2023-01-10 00:00:00 2023-01-10 00:00:00 Patient Secure Msg Doctor Unassigned, [place] [facility] 1.84.114 350.1.13.10 4.2.7.2.686 [id number] [facility] 2023-01-09 00:00:00 2023-01-09 00:00:00 Patient Secure Msg Annette-Eliseo s, Sharonda [facility] 1.2840.114 350.1.13.10 4.2.7.2.686 [id number] [facility] 2023-01-06 12:15:00 2023-01-06 12:30:00 Behavioral Health Technician Visit Lab, Aguila Morton Jayna dominguez [facility] 1.0.114 350.1.13.10 4.2.7.2.686 [id number] [facility] 2023-01-06 12:15:00 2023-01-06 12:15:00 Outpatient R ANNETTE-ELISEO S, SHARONDA BRYANT-ELISEO S, SHARONDA [facility] [id number] [facility] 2023-01-04 00:00:00 2023-01-04 00:00:00 Telephone Annette-Eliseo s, Sharonda [facility] 1.0.114 350.1.13.10 4.2.7.2.686 [id number] [facility] 2023-01-03 00:00:00 2023-01-03 00:00:00 Patient Secure Msg Annette-Eliseo s, Sharonda [facility] 1.20.114 350.1.13.10 4.2.7.2.686 [id number] [facility] 2023-01-02 12:30:00 2023-01-02 12:45:00 Behavioral Health Technician Visit Lab, Vaughn Quarles [facility] 1.840.114 350.1.13.10 4.2.7.2.686 [id number] [facility] 2023-01-02 12:30:00 2023-01-02 12:30:00 Outpatient R VAUGHN HARRIS CHERYAL [facility] [id number] [facility] 2022-12-19 12:15:00 2022-12-19 12:30:00 Behavioral Health Technician Visit Lab, Aguila - Db [facility] 1.2.840.114 350.1.13.10 4.2.7.2.686 [id number] [facility] 2022-12-19 12:15:00 2022-12-19 12:15:00 Outpatient R BRYANT-ELISEO S, SHARONDA BRYANT-ELISEO S, SHARONDA [facility] [id number] [facility] 2022-12-19 00:00:00 2022-12-19 00:00:00 Telephone Bryant-Eliseo s, Sharonda [facility] 1.2.840.114 350.1.13.10 4.2.7.2.686 [id number] [facility] 2022-12-09 12:15:00 2022-12-09 12:30:00 Behavioral Health Technician Visit Lab, Aguila - Db [facility] 1.2.840.114 350.1.13.10 4.2.7.2.686 [id number] [facility] 2022-12-09 12:15:00 2022-12-09 12:15:00 Outpatient R BRYANT-ELISEO S, SHARONDA BRYANT-ELISEO S, SHARONDA [facility] [id number] [facility] 2022-12-08 15:15:00 2022-12-08 15:47:29 Outpatient R BRYANT-ELISEO S, SHARONDA BRYANT-ELISEO S, SHARONDA [facility] [id number] [facility] 2022-12-08 15:15:00 2022-12-08 15:47:29 Office Visit Sharonda Delgado [facility] 1.114 350.1.13.10 4.2.7.2.686 [id number] [facility] 2022-12-07 00:00:00 2022-12-07 00:00:00 Orders Only Doctor Unassigned, [place] [facility] 1.114 350.1.13.10 4.2.7.2.686 [id number] [facility] 2022-12-06 15:30:00 2022-12-06 15:30:00 Outpatient VAUGHN SWANN CHERYAL [facility] [id number] [facility] 2022-12-06 00:00:00 2022-12-06 00:00:00 [id number] 2022-12-04 17:57:00 2022-12-05 01:24:00 Emergency X DAMIEN DONATO [facility] ERT [id number] [facility] 2022-12-04 17:57:00 2022-12-05 01:24:00 Emergency Schoenstein , Allyssa Damien Donato [facility] 1.114 350..13.10 4.2.7.2.686 [id number] [facility] 2022-11-30 13:20:00 2022-11-30 14:13:12 Outpatient R RANDY GUILLEN [facility] [id number] [facility] 2022-11-30 13:20:00 2022-11-30 14:13:12 Urgent Care Randy Guillen Unknown, Attending [facility] 1.114 350.1.13.10 4.2.7.2.686 [id number] [facility] 2022-11-30 00:00:00 2022-11-30 00:00:00 Orders Only Doctor Unassigned, [place] [facility] 1.2840.114 350.1.13.10 4.2.7.2.686 [id number] [facility] 2022-11-30 00:00:00 2022-11-30 00:00:00 Letter (Out) Randy Guillen [facility] 1.840.114 350.1.13.10 4.2.7.2.686 [id number] [facility] 2022-11-14 00:00:00 2022-11-14 00:00:00 OFFICE VISIT ESTAB PT LEVEL 4 STLMLC STLMLC [id number] [facility] 2022-11-04 00:00:00 2022-11-04 00:00:00 (TEL) STLMLC STLMLC [id number] [facility] 2022-10-20 12:20:00 2022-10-20 12:40:00 Urgent Care Julián Guido Unknown, Attending [facility] 1.840.114 350.1.13.10 4.2.7.2.686 [id number] [facility] 2022-10-20 12:20:00 2022-10-20 12:20:00 Outpatient R JULIÁN GUIDO [facility] [id number] [facility] 2022-08-15 00:00:00 2022-08-15 00:00:00 (TEL) STLMLC STLMLC [id number] [facility] 2022-05-19 00:00:00 2022-05-19 00:00:00 Orders Only Doctor Unassigned, [place] [facility] 1.284.114 350.1.13.10 4.2.7.2.686 [id number] [facility] 2022-05-11 00:00:00 2022-05-11 00:00:00 Abstract Vaughn Harris [facility] 1.840.114 350.1.13.10 4.2.7.2.686 [id number] [facility] 2022-05-11 00:00:00 2022-05-11 00:00:00 PREV VISIT EST AGE 40-64 STLMLC STLMLC [id number] [facility] 2022-05-09 00:00:00 2022-05-09 00:00:00 Orders Only Doctor Unassigned, [place] [facility] 1..840.114 350.1.13.10 4.2.7.2.686 [id number] [facility] 2022-04-13 00:00:00 2022-04-13 00:00:00 Telephone Vaughn Harris [facility] 1.840.114 350.1.13.10 4.2.7.2.686 [id number] [facility] 2022-03-25 00:00:00 2022-03-25 00:00:00 (TEL) STLMLC STLMLC [id number] [facility] 2022-03-21 16:00:00 2022-03-21 16:44:39 Outpatient R VAUGHN HARRIS CHERYAL [facility] [id number] [facility] 2022-03-21 16:00:00 2022-03-21 16:44:39 Outpatient R VAUGHN HARRIS CHERYAL [facility] [id number] [facility] 2022-03-21 16:00:00 2022-03-21 16:44:39 Office Visit Vaughn Harris [facility] 1.2.840.114 350.1.13.10 4.2.7.2.686 [id number] [facility] 2022-03-21 00:00:00 2022-03-21 00:00:00 Orders Only Doctor Unassigned, [place] [facility] 1.2840.114 350.1.13.10 4.2.7.2.686 [id number] [facility] 2022-03-14 00:00:00 2022-03-14 00:00:00 (TEL) STLMLC STLMLC [id number] [facility] 2022-02-14 00:00:00 2022-02-14 00:00:00 (TEL) STLMLC STLMLC [id number] [facility] 2022-02-08 00:00:00 2022-02-08 00:00:00 OFFICE VISIT ESTAB PT LEVEL 4 STLMLC STLMLC [id number] [facility] 2022-01-11 00:00:00 2022-01-11 00:00:00 (TEL) STLMLC STLMLC [id number] [facility] 2021-09-09 13:00:00 2021-09-09 13:00:00 Outpatient EVER CASTRO [facility] [id number] [facility] 2021-09-02 00:00:00 2021-09-02 00:00:00 Pre Visit Outreach Sarah Rain 1.840.114 350.1.13.10 4.2.7.2.686 [id number] [facility] 2021-08-13 00:00:00 2021-08-13 00:00:00 Patient Secure Msg Doctor Unassigned, [place] [facility] 1.2840.114 350.1.13.10 4.2.7.2.686 [id number] [facility] 2021-07-27 00:00:00 2021-07-27 00:00:00 OFFICE VISIT ESTAB PT LEVEL 4 STLMLC STLMLC [id number] [facility] 2021-06-16 00:00:00 2021-06-16 00:00:00 (TEL) STLMLC STLMLC [id number] [facility] 2021-04-19 00:00:00 2021-04-19 00:00:00 Outpatient STLMLC STLMLC [id number] [facility] 2021-04-08 00:00:00 2021-04-08 00:00:00 Outpatient STLMLC STLMLC [id number] [facility] 2021-04-08 00:00:00 2021-04-08 00:00:00 Outpatient STLMLC STLMLC [id number] [facility] 2021-03-30 00:00:00 2021-03-30 00:00:00 Outpatient STLMLC STLMLC [id number] [facility] 2021-03-30 00:00:00 2021-03-30 00:00:00 Outpatient STLMLC STLMLC [id number] [facility] 2021-03-29 00:00:00 2021-03-29 00:00:00 Outpatient STLMLC STLMLC [id number] [facility] 2021-01-02 16:00:00 2021-01-02 16:00:00 Outpatient MARIA D KOCH [facility] [id number] [facility] 2020-12-17 00:00:00 2020-12-17 00:00:00 Outpatient STLMLC STLMLC [id number] [facility] 2020-11-14 13:25:00 2020-11-14 13:25:00 Outpatient [facility] [id number] [facility] 2020-11-09 00:00:00 2020-11-09 00:00:00 Outpatient STLMLC STLMLC [id number] [facility] 2020-10-24 13:15:00 2020-10-24 13:15:00 Outpatient [facility] [id number] [facility] 2020-09-11 00:00:00 2020-09-11 00:00:00 Outpatient STLMLC [facility]MLC [id number] [facility] 2020-09-08 13:30:00 2020-09-08 13:30:00 Outpatient EVER CASTRO [facility] [id number] [facility] 2020-09-08 00:00:00 2020-09-08 00:00:00 Orders Only Doctor Unassigned, [place] [facility] 1.2.840.114 350.1.13.10 4.2.7.2.686 [id number] 2020-09-08 00:00:00 2020-09-08 00:00:00 Orders Only Doctor Unassigned, [place] [facility] 1.2.840.114 350.1.13.10 4.2.7.2.686 [id number] [facility] 2020-08-19 00:00:00 2020-08-19 00:00:00 Outpatient STLMLC STLMLC [id number] [facility] 2020-07-22 00:00:00 2020-07-22 00:00:00 Outpatient STLMLC STLMLC [id number] [facility] 2020-07-08 00:00:00 2020-07-08 00:00:00 Outpatient STLMLC STLMLC [id number] [facility] 2020-06-23 00:00:00 2020-06-23 00:00:00 Outpatient STLMLC STLMLC [id number] [facility] 2020-06-03 00:00:00 2020-06-03 00:00:00 Outpatient STLMLC STLMLC [id number] [facility] 2020-03-20 11:15:00 2020-03-20 11:15:00 Outpatient Brazgriselda t [facility] [id number] [facility] 2020-03-20 09:45:00 2020-03-20 09:45:00 Outpatient [facility] [facility] Medicine [id number] [facility] 2020-03-16 22:32:00 2020-03-16 22:32:00 [facility] [id number] [facility] 2020-03-10 15:20:00 2020-03-10 15:20:00 Outpatient [place] [facility] [id number] [facility] 2020-02-12 10:10:00 2020-02-12 10:10:00 Outpatient [place] [facility] Medicine [id number] [facility] 2020-01-14 16:00:00 2020-01-14 16:00:00 [facility] Medicine [id number] [facility] 2019-11-13 09:47:00 2019-11-13 09:47:00 [facility] [id number] [facility] 2019-08-23 15:15:00 2019-08-23 15:15:00 [facility] [id number] [facility] 2019-05-27 14:45:00 2019-05-27 14:45:00 [facility] Medicine [id number] [facility] Results Test Description Test Time Test Comments Results Result Co mments Source LIPID PANEL WITH REFLEX DIRECT [id number] 00:00:00* Test Item Value Reference Range Interpretation Comme nts CALC LDL CHOL (test code = 47230-1) 73 MG/DL See_Comment [Automated Mass Appeala ge] The system which generated this result transmitted reference range: <100 MG/DL. The reference range was not used to interpret this result as normal/abnormal. CHOLESTEROL (test code = 2093-3) 149 MG/DL See_Comment [Automated messa ge] The system which generated this result transmitted reference range: <200 MG/DL. The reference range was not used to interpret this result as normal/abnormal. HDL CHOLESTEROL (test code = 2085-9) 49 MG/DL See_Comment [Automated messa ge] The system which generated this result transmitted reference range: >39 MG/DL. The reference range was not used to interpret this result as normal/abnormal. RISK RATIO LDL/HDL (test code = 35859-8) 1.49 RATIO See_Comment [Automated message] The system which generated this result transmitted reference range: <3.22 RATIO. The reference range was not used to interpret this result as normal/abnormal. TRIGLYCERIDES (test code = 2571-8) 174 MG/DL See_Comment H [Automated messa ge] The system which generated this result transmitted reference range: <150 MG/DL. The reference range was not used to interpret this result as normal/abnormal. PATHOLOGIST SMEAR [id number] 00:00:00* Test Item Value Reference Range Interpretation Comme nts BASOPHILS (test code = 65996-0) 0.2 % DIAGNOSIS: (test code = 23764-9) (NOTE) COMMENTS (test code = 39945-2) (NOTE) EOSINOPHILS (test code = 71887-5) 1.4 % HEMATOCRIT (test code = 36007-0) 36.6 % See_Comment [Automated Mass Appeala ge] The system which generated this result transmitted reference range: 34.0-45.0 %. The reference range was not used to interpret this result as normal/abnormal. HEMOGLOBIN (test code = 718-7) 12.1 G/DL See_Comment [Automated messa ge] The system which generated this result transmitted reference range: 11.5-15.5 G/DL. The reference range was not used to interpret this result as normal/abnormal. LYMPHOCYTES (test code = 38036-7) 42.7 % MCH (test code = 29584-5) 30.1 PG See_Comment [Automated Mass Appeala ge] The system which generated this result transmitted reference range: 25.0-33.0 PG. The reference range was not used to interpret this result as normal/abnormal. MCHC (test code = 50541-1) 33.1 G/DL See_Comment [Automated messa ge] The system which generated this result transmitted reference range: 31.0-36.0 G/DL. The reference range was not used to interpret this result as normal/abnormal. MCV (test code = 16289-2) 91.0 fL See_Comment [Automated messa ge] The system which generated this result transmitted reference range: 80.0-99.0 fL. The reference range was not used to interpret this result as normal/abnormal. MONOCYTES (test code = 81332-2) 4.6 % NEUTROPHILS (test code = 88707-2) 50.9 % NUCLEATED RBCS (test code = 22980-3) 0.0 /100 WBC'S See_Comment [Automated messa ge] The system which generated this result transmitted reference range: 0.0 /100 WBC'S. The reference range was not used to interpret this result as normal/abnormal. PATHOLOGIST: (test code = 39409-2) (NOTE) PLATELET COUNT (test code = 77202-5) 339 K/UL See_Comment [Automated messa ge] The system which generated this result transmitted reference range: 130-400 K/UL. The reference range was not used to interpret this result as normal/abnormal. RBC (test code = 54064-7) 4.02 M/UL See_Comment [Automated messa ge] The system which generated this result transmitted reference range: 3.80-5.40 M/UL. The reference range was not used to interpret this result as normal/abnormal. RDW (test code = 66538-7) 12.9 % See_Comment [Automated messa ge] The system which generated this result transmitted reference range: 11.5-15.0 %. The reference range was not used to interpret this result as normal/abnormal. WBC (test code = 93940-1) 12.3 K/UL See_Comment H [Automated messa ge] The system which generated this result transmitted reference range: 3.5-11.0 K/UL. The reference range was not used to interpret this result as normal/abnormal. COMPREHENSIVE METABOLIC [id number] 00:00:00* Test Item Value Reference Range Interpretation Comme nts ALBUMIN (test code = 1751-7) 4.6 G/DL See_Comment [Automated messa ge] The system which generated this result transmitted reference range: 3.5-5.2 G/DL. The reference range was not used to interpret this result as normal/abnormal. ALKALINE PHOSPHATASE (test code = 6768-6) 74 U/L See_Comment [Automated message] The system which generated this result transmitted reference range: 40-132 U/L. The reference range was not used to interpret this result as normal/abnormal. BILIRUBIN, TOTAL (test code = 1975-2) <0.2 MG/DL See_Comment [Automated message] The system which generated this result transmitted reference range: <=1.2 MG/DL. The reference range was not used to interpret this result as normal/abnormal. BUN (test code = 3094-0) 14 MG/DL See_Comment [Automated messa ge] The system which generated this result transmitted reference range: 6-20 MG/DL. The reference range was not used to interpret this result as normal/abnormal. CALCIUM (test code = 50882-0) 8.9 MG/DL See_Comment [Automated messa ge] The system which generated this result transmitted reference range: 8.5-10.5 MG/DL. The reference range was not used to interpret this result as normal/abnormal. CALC A/G RATIO (test code = 1759-0) 1.6 RATIO See_Comment [Automated messa ge] The system which generated this result transmitted reference range: 1.0-2.6 RATIO. The reference range was not used to interpret this result as normal/abnormal. CALC BUN/CREAT (test code = 3097-3) 14 RATIO See_Comment [Automated messa ge] The system which generated this result transmitted reference range: 6-28 RATIO. The reference range was not used to interpret this result as normal/abnormal. CALC GLOBULIN (test code = 85474-3) 2.8 G/DL See_Comment [Automated messa ge] The system which generated this result transmitted reference range: 1.9-3.7 G/DL. The reference range was not used to interpret this result as normal/abnormal. CARBON DIOXIDE (test code = 1963-8) 26 MEQ/L See_Comment [Automated messa ge] The system which generated this result transmitted reference range: 19-31 MEQ/L. The reference range was not used to interpret this result as normal/abnormal. CHLORIDE (test code = 2075-0) 101 MEQ/L See_Comment [Automated messa ge] The system which generated this result transmitted reference range: 95-107 MEQ/L. The reference range was not used to interpret this result as normal/abnormal. CREATININE (test code = 2160-0) 1.00 MG/DL See_Comment [Automated messa ge] The system which generated this result transmitted reference range: 0.60-1.30 MG/DL. The reference range was not used to interpret this result as normal/abnormal. eGFR (2020 CKD-EPI) (test code = 86519-5) 68 ML/MIN/1.73 See_Comment [Automated messa ge] The system which generated this result transmitted reference range: >60 ML/MIN/1.73. The reference range was not used to interpret this result as normal/abnormal. GLUCOSE (test code = 1558-6) 83 MG/DL See_Comment [Automated messa ge] The system which generated this result transmitted reference range: 70-99 MG/DL. The reference range was not used to interpret this result as normal/abnormal. POTASSIUM (test code = 2823-3) 3.9 MEQ/L See_Comment [Automated messa ge] The system which generated this result transmitted reference range: 3.5-5.4 MEQ/L. The reference range was not used to interpret this result as normal/abnormal. PROTEIN, TOTAL (test code = 2885-2) 7.4 G/DL See_Comment [Automated messa ge] The system which generated this result transmitted reference range: 6.1-8.3 G/DL. The reference range was not used to interpret this result as normal/abnormal. AST (test code = 1920-8) 12 U/L See_Comment [Automated messa ge] The system which generated this result transmitted reference range: 9-40 U/L. The reference range was not used to interpret this result as normal/abnormal. ALT (test code = 1742-6) 13 U/L See_Comment [Automated messa ge] The system which generated this result transmitted reference range: 5-40 U/L. The reference range was not used to interpret this result as normal/abnormal. SODIUM (test code = 2951-2) 140 MEQ/L See_Comment [Automated messa ge] The system which generated this result transmitted reference range: 133-146 MEQ/L. The reference range was not used to interpret this result as normal/abnormal.
[2023-09-14 10:03] LABS: MCV 87.3 fL (80-100); MPV 7.5 fL (7.6-11.3); Platelets 289 thou/uL (152-406); RBC Red Blood Cell Count 3.44 M/uL (3.86-4.86)
[2023-09-14 10:07] LABS: Protime INR 1.02
[2023-09-14 10:17] LABS: ALT/SGPT 47 U/L (13-56); AST/SGOT 33 U/L (15-37); Albumin 2.8 g/dL (3.4-5.0); Alkaline Phosphatase 72 U/L (45-117); BUN Blood Urea Nitrogen 11 mg/dL (7-18); Bicarbonate 28 mEq/L (21-32); Bilirubin Total 0.2 mg/dL (0.2-1.0); Glomerular Filtration Rate 83 ml/min (=/>90); Glucose Level 87 mg/dL (74-106); Lipase 15 U/L (13-75); Magnesium 2.3 mg/dL (1.6-2.4); NT PRO-BNP 198 pg/mL (<125); Potassium 4.4 mEq/L (3.5-5.1); Protein, Total 6.8 g/dL (6.4-8.2); Sodium Level 139 mEq/L (136-145); Troponin High Sensitivity 8.4 pg/mL (<58.9)
[2023-09-14 10:18] LABS: Bilirubin Direct < 0.1 mg/dL (0-0.2); Bilirubin Indirect, Calculated ND mg/dL (0.2-0.8)
--- NOTE | 2023-09-14 10:59 | RAD REPORT ---
EXAM DESCRIPTION: RADChest Single View09/14/2023 10:27 am CLINICAL HISTORY: SOB COMPARISON: Chest Single View dated 06/16/2021 TECHNIQUE: Portable AP view of the chest. FINDINGS: The lungs show no focal consolidation. Central interstitial prominence. Decreased inspirat ory effort limits evaluation. No pneumothorax or effusion. The cardiomediastinal contours are unrema rkable. IMPRESSION: Central interstitial prominence which may relate to decreased inspiratory effort or mild central congestion/CHF.
[2023-09-14 11:12] LABS: Thyroid Stimulating Hormone 5.1 uIU/mL (0.358-3.740)
--- NOTE | 2023-09-14 11:42 | EDPHYS ---
Physician Documentation [facility] Name: Deb Whalen Age: 53 yrs Sex: Female : 1970 Arrival Date: 09/14/2023 Time: 09:25 Bed 20 Private MD: [facility] ED Physician Anatoly Stuart HPI: 09/14 10:30 This 53 yrs old Female presents to ER via Ambulatory with complaints of helen Breathing Difficulty, Swelling. 10:30 The patient has shortness of breath at rest, with light activity. Onset: The helen symptoms/episode began/occurred 2 day(s) ago. Duration: The symptoms are continuous, and are steadily getting worse. The patient's shortness of breath has no apparent modifying factors. Associated signs and symptoms: Pertinent positives: non-productive cough. Severity of symptoms: At their worst the symptoms were mild in the emergency department the symptoms are unchanged. The patient has experienced similar episodes in the past, a few times. PHYSICIAN GENERAL INTERNAL MEDICINE: 13:33 LMP N/A - control method, Not ll1 Historical: - Allergies: 09:41 No Known Allergies; ll1 - PMHx: 09:41 depressive disorder; Hypercholesterolemia; Hypertensive disorder; ll1 - PSHx: 09:41 Cholecystectomy; knee; tubal; ll1 - Immunization history:: Adult Immunizations up to date. - Social history:: Smoking status: Patient denies any tobacco usage or history of. ROS: 10:31 Constitutional: Negative for fever, chills, and weight loss, Eyes: Negative for injury, helen pain, redness, and discharge, ENT: Negative for injury, pain, and discharge, Neck: Negative for injury, pain, and swelling, Cardiovascular: Negative for chest pain, palpitations, and edema, Abdomen/GI: Negative for abdominal pain, nausea, vomiting, diarrhea, and constipation, Back: Negative for injury and pain, : Negative for injury, bleeding, discharge, and swelling, Skin: Negative for injury, rash, and discoloration, Neuro: Negative for headache, weakness, numbness, tingling, and seizure, Psych: Negative for depression, anxiety, suicide ideation, homicidal ideation, and hallucinations, Allergy/Immunology: Negative for hives, rash, and allergies, Endocrine: Negative for neck swelling, polydipsia, polyuria, polyphagia, and marked weight changes, Hematologic/Lymphatic: Negative for swollen nodes, abnormal bleeding, and unusual bruising, 10:31 Respiratory: Positive for cough, shortness of breath, 10:31 MS/extremity: Positive for pain, swelling, tenderness, of the right leg and left leg, Exam: 10:31 Constitutional: This is a well developed, well nourished patient who is awake, alert, helen and in no acute distress. Head/Face: Normocephalic, atraumatic. Eyes: Pupils equal round and reactive to light, extra-ocular motions intact. Lids and lashes normal. Conjunctiva and sclera are non-icteric and not injected. Cornea within normal limits. Periorbital areas with no swelling, redness, or edema. ENT: Nares patent. No nasal discharge, no septal abnormalities noted. Tympanic membranes are normal and external auditory canals are clear. Oropharynx with no redness, swelling, or masses, exudates, or evidence of obstruction, uvula midline. Mucous membranes moist. Neck: Trachea midline, no thyromegaly or masses palpated, and no cervical lymphadenopathy. Supple, full range of motion without nuchal rigidity, or vertebral point tenderness. No Meningismus. Chest/axilla: Normal chest wall appearance and motion. Nontender with no deformity. No lesions are appreciated. Cardiovascular: Regular rate and rhythm with a normal S1 and S2. No gallops, murmurs, or rubs. Normal PMI, no JVD. No pulse deficits. Respiratory: Lungs have equal breath sounds bilaterally, clear to auscultation and percussion. No rales, rhonchi or wheezes noted. No increased work of breathing, no retractions or nasal flaring. Abdomen/GI: Soft, non-tender, with normal bowel sounds. No distension or tympany. No guarding or rebound. No evidence of tenderness throughout. Back: No spinal tenderness. No costovertebral tenderness. Full range of motion. Female : Normal external genitalia. Skin: Warm, dry with normal turgor. Normal color with no rashes, no lesions, and no evidence of cellulitis. Neuro: Awake and alert, GCS 15, oriented to person, place, time, and situation. Cranial nerves II-XII grossly intact. Motor strength 5/5 in all extremities. Sensory grossly intact. Cerebellar exam normal. Normal gait. Psych: Awake, alert, with orientation to person, place and time. Behavior, mood, and affect are within normal limits. 10:31 ECG was reviewed by the Attending Physician. 11:35 Neck: External neck: is normal, no acute changes, C-spine: no acute changes, helen ROM/movement: is normal, no acute changes, Lymph nodes: no appreciated lymphadenopathy, 11:35 Chest/axilla: Inspection: normal, Palpation: is normal, Axilla: are normal, no acute changes, Lymph nodes: lymphadenopathy is not appreciated, 11:35 Cardiovascular: Rate: normal, Rhythm: regular, Pulses: Pulses are 4+ in bilateral radial, brachial, femoral, popliteal, posterior tibial and and dorsalis pedis arteries.. Heart sounds: normal, Edema: is not appreciated, JVD: is not appreciated, Vital Signs: 09:42 BP 106 / 80; Pulse 82; Resp 18; Temp 98; Pulse Ox 96% on R/A; Weight 117.48 kg; Height ll1 5 ft. 3 in. ; Pain 7/10; 10:04 BP 131 / 50; Pulse 75; Resp 18; Pulse Ox 95% on R/A; ll1 10:16 BP 114 / 57; Pulse 73; ll1 11:45 BP 115 / 63; Pulse 61; Pulse Ox 96% ; ll1 13:05 BP 133 / 66; Pulse 75; Resp 18; Pulse Ox 95% ; ll1 13:31 BP 131 / 61; Pulse 77; Resp 18; Pulse Ox 96% ; ll1 09:42 Body Mass Index 45.88 (117.48 kg, 160.02 cm) ll1 09:42 Pain Scale: Adult ll1 MDM: 09:30 Patient medically screened. helen 10:33 Differential diagnosis: contusion, abrasion, asthma, Bronchitis CHF exacerbation, helen Chronic Obstructive Pulmonary Disease pulmonary edema, Pulmonary Embolism reactive airway disease, Unstable Angina. Antibiotic administration: Not indicated. Immunization status: Influenza vaccine: within last 5 years. Data reviewed: vital signs, nurses notes, lab test result(s), EKG, radiologic studies, CT scan. Consideration of Admission/Observation Escalation of care including admission/observation considered. I considered the following discharge prescriptions or medication management in the emergency department Medications were administered in the Emergency Department. See MAR. Test considered but Not performed: Ultrasound no 2 d echo. 09/14 09:31 Order name: Basic Metabolic Panel; Complete Time: 10:30 helen 09/14 09:31 Order name: CBC with Diff; Complete Time: 10:30 09/14 09:31 Order name: LFT's; Complete Time: 10:30 09/14 09:31 Order name: Magnesium; Complete Time: 10:30 09/14 09:31 Order name: NT PRO-BNP; Complete Time: 10:30 09/14 09:31 Order name: PT-INR; Complete Time: 10:30 09/14 09:31 Order name: Troponin HS; Complete Time: 10:30 09/14 09:31 Order name: Urinalysis w/ reflexes; Complete Time: 13:02 09/14 09:31 Order name: Lipase; Complete Time: 10:30 [facility] 09/14 10:30 Order name: TSH; Complete Time: 11:33 [facility] 09/14 11:14 Order name: T4 Free; Complete Time: 11:33 EDMS 09/14 09:31 Order name: XRAY Chest (1 view); Complete Time: 11:33 [facility] 09/14 10:30 Order name: US Extremity Venous W Compression Evaristo; Complete Time: 13:02 09/14 09:31 Order name: EKG; Complete Time: 09:33 helen 09/14 09:31 Order name: Cardiac monitoring; Complete Time: 09:48 helen 09/14 09:31 Order name: EKG - Nurse/Tech; Complete Time: 09:48 [facility] 09/14 09:31 Order name: IV Saline Lock; Complete Time: 09:42 09/14 09:31 Order name: Labs collected and sent; Complete Time: 09:42 helen 09/14 09:31 Order name: O2 Per Protocol; Complete Time: 09:42 [facility] 09/14 09:31 Order name: O2 Sat Monitoring; Complete Time: 09:42 [facility] EC:31 Rate is 68 beats/min. Rhythm is regular. QRS Bally is Normal. UT interval is normal. QRS helen interval is normal. QT interval is normal. No Q waves. T waves are Normal. No ST changes noted. Clinical impression: Normal ECG and No evidence of ischemia. Interpreted by me. Reviewed by me. Administered Medications: 11:34 Discontinued: ns 0.9% 1000 ml IV at 75 ml/hr continuous helen 09:48 Drug: NS 0.9% IV 1000 ml IV at 75 ml/hr continuous Route: IV; Rate: 75 ml/hr; Site: ll1 left antecubital; 11:45 Follow up: IV Status: Order to discontinue infusion ll1 11:59 Drug: Furosemide IVP 20 mg IVP once; give over 2 minutes Route: IVP; Site: left ll1 antecubital; 13:34 Follow up: Response: No adverse reaction ll1 11:59 Drug: Aspirin PO Chewable Tablet 162 mg PO once Route: PO; ll1 13:33 Follow up: Response: No adverse reaction ll1 Disposition Summary: 09/14/23 11:42 Discharge Ordered Notes: Location: Home helen Problem: new helen Symptoms: have improved helen Condition: Stable helen Diagnosis - Dyspnea helen - Obesity, unspecified helen - Shortness of breath helen - Combined systolic (congestive) and diastolic (congestive) heart failure helen - UTI/ Urinary tract infection, site not specified helen Followup: helen - With: Lamont Turk DO - When: 2 - 3 days - Reason: Recheck today's complaints, Continuance of care, Re-evaluation by your physician Followup: helen - With: Christiano Carr MD - When: 2 - 3 days - Reason: Recheck today's complaints, Re-evaluation by your physician Discharge Instructions: - Discharge Summary Sheet helen - Obesity, Adult helen - Shortness of Breath, Adult helen - Urinary Tract Infection, Adult helen - Shortness of Breath, Adult, Uide-[id number] helen - Urinary Tract Infection, Adult, Sdkj-gs-Unti helen - Aspirin and Your Heart helen - Obesity, Adult, [id number]-[id number] helen - Heart Failure, Self-Care, Jroz-kn-Msoz helen - Heart Failure Eating Plan [facility] Forms: - Medication Reconciliation Form [facility] - Thank You Letter helen - Antibiotic Education helen - Prescription Opioid Use helen - Patient Portal Instructions helen - Leadership Thank You Letter helen - Work release form ds4 Prescriptions: - Cipro 250 mg Oral tablet - take 1 tablet ORAL route every 12 hours; 14 tablet; Refills: 0, Product helen Selection Permitted - Lasix 20 mg Oral tablet - take 1 tablet ORAL route every other day; 7 tablet; Refills: 0, Product helen Selection Permitted - Potassium Chloride 20 meq Oral Packet - take 1 packet ORAL route every other day 1 packet in 6 (six) ounces of water or helen juice; Take after meal; 7 packet; Refills: 0, Product Selection Permitted Signatures: Dispatcher [employer] Anatoly Jorgensen MD MD cha Lewis, Lynsay RN RN ll1
--- NOTE | 2023-09-14 11:42 | ER ---
Nurse's Notes [facility] Name: Deb Whalen Age: 53 yrs Sex: Female : 1970 Arrival Date: 09/14/2023 Time: 09:25 Bed 20 Private MD: Lamont Turk Diagnosis: Dyspnea;Obesity, unspecified;Shortness of breath;Combined systolic (congestive) and diastolic (congestive) heart failure;UTI/ Urinary tract infection, site not specified Presentation: 09/14 09:48 Chief complaint: Patient states: Lower body swelling and SOB since Monday night. No ll1 fever. Coronavirus screen: Vaccine status: Patient reports receiving the 2nd dose of the covid vaccine. Client denies travel out of the [place] in the last 14 days. difficulty breathing, shortness of breath, Client presents with at least one sign or symptom that may indicate coronavirus-19. Standard/surgical mask placed on the client. Ebola Screen: Patient denies travel to an Ebola-affected area in the 21 days before illness onset. Initial Sepsis Screen: Does the patient meet any 2 criteria? No. Patient's initial sepsis screen is negative. Does the patient have a suspected source of infection? No. Patient's initial sepsis screen is negative. Risk Assessment: Do you want to hurt yourself or someone else? Patient reports no desire to harm self or others. Onset of symptoms was September 12, 2023. 09:48 Method Of Arrival: Ambulatory ll1 09:48 Acuity: MIKEY 3 ll1 Triage Assessment: 09:50 General: Appears uncomfortable, Behavior is calm, cooperative, appropriate for age. ll1 Pain: Complains of pain in back Pain currently is 7 out of 10 on a pain scale. Quality of pain is described as aching. Cardiovascular: Reports shortness of breath. Respiratory: Reports shortness of breath at rest Onset: The symptoms/episode began/occurred 2 days ago, the patient has mild shortness of breath. 09:51 Musculoskeletal: Circulation, motion, and sensation intact. Capillary refill < 3 ll1 seconds, Swelling present in right leg and left leg Reports Swelling BLE. 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 - Social history:: Smoking status: Patient denies any tobacco usage or history of. Screenin:32 [facility] ED Fall Risk Assessment (Adult) Score/Fall Risk Level 0 - 2 = Low Risk ll1 Oriented to surroundings, Maintained a safe environment, Educated pt \T\ family on fall prevention, incl call for assistance when getting out of bed, Hourly rounding (assess needs \T\ fall precautionary measures) done. Abuse screen: Denies threats or abuse. Nutritional screening: No deficits noted. Tuberculosis screening: No symptoms or risk factors identified. Assessment: 09:51 Reassessment: No changes from previously documented assessment. Patient and/or family ll1 updated on plan of care and expected duration. Pain level reassessed. Patient is alert, oriented x 3, equal unlabored respirations, skin warm/dry/pink. 10:04 Reassessment: No changes from previously documented assessment. Patient and/or family ll1 updated on plan of care and expected duration. Pain level reassessed. Patient is alert, oriented x 3, equal unlabored respirations, skin warm/dry/pink. 11:10 Reassessment: No changes from previously documented assessment. Patient and/or family ll1 updated on plan of care and expected duration. Pain level reassessed. Patient is alert, oriented x 3, equal unlabored respirations, skin warm/dry/pink. 11:59 Reassessment: No changes from previously documented assessment. Patient and/or family ll1 updated on plan of care and expected duration. Pain level reassessed. Patient is alert, oriented x 3, equal unlabored respirations, skin warm/dry/pink. 13:07 Reassessment: No changes from previously documented assessment. Patient and/or family ll1 updated on plan of care and expected duration. Pain level reassessed. Patient is alert, oriented x 3, equal unlabored respirations, skin warm/dry/pink. 13:32 Cardiovascular: Rhythm is regular. Respiratory: Airway is patent Respiratory effort is ll1 even, unlabored, Breath sounds are clear bilaterally. Vital Signs: 09:42 BP 106 / 80; Pulse 82; Resp 18; Temp 98; Pulse Ox 96% on R/A; Weight 117.48 kg; Height ll1 5 ft. 3 in. ; Pain 7/10; 10:04 BP 131 / 50; Pulse 75; Resp 18; Pulse Ox 95% on R/A; ll1 10:16 BP 114 / 57; Pulse 73; ll1 11:45 BP 115 / 63; Pulse 61; Pulse Ox 96% ; ll1 13:05 BP 133 / 66; Pulse 75; Resp 18; Pulse Ox 95% ; ll1 13:31 BP 131 / 61; Pulse 77; Resp 18; Pulse Ox 96% ; ll1 09:42 Body Mass Index 45.88 (117.48 kg, 160.02 cm) ll1 09:42 Pain Scale: Adult ll1 ED Course: 09:27 Patient arrived in ED. mr 09:28 Laomnt Turk DO is Private Physician. mr 09:28 Arm band placed on Patient placed in an exam room, on a stretcher. ll1 09:30 Anatoly Stuart MD is Attending Physician. helen 09:41 Inserted saline lock: 22 gauge in left antecubital area, using aseptic technique. Blood ll1 collected. 09:42 Jacki Sharp, NAVYA is Primary Nurse. ll1 09:50 Triage completed. ll1 10:29 XRAY Chest (1 view) In Process Unspecified. EDMS 10:37 TSH Sent. ty 11:30 US Extremity Venous W Compression Evaristo In Process Unspecified. EDMS 11:42 Lamont Turk DO is Referral Physician. helen 11:42 Christiano Carr MD is Referral Physician. helen 12:33 Urinalysis w/ reflexes Sent. ll1 13:32 No provider procedures requiring assistance completed. IV discontinued, intact, ll1 bleeding controlled, No redness/swelling at site. Pressure dressing applied. 13:33 Patient has correct armband on for positive identification. Bed in low position. Call ll1 light in reach. Provided Education on: n/a. Administered Medications: 11:34 Discontinued: ns 0.9% 1000 ml IV at 75 ml/hr continuous helen 09:48 Drug: NS 0.9% IV 1000 ml IV at 75 ml/hr continuous Route: IV; Rate: 75 ml/hr; Site: ll1 left antecubital; 11:45 Follow up: IV Status: Order to discontinue infusion ll1 11:59 Drug: Furosemide IVP 20 mg IVP once; give over 2 minutes Route: IVP; Site: left ll1 antecubital; 13:34 Follow up: Response: No adverse reaction ll1 11:59 Drug: Aspirin PO Chewable Tablet 162 mg PO once Route: PO; ll1 13:33 Follow up: Response: No adverse reaction ll1 Medication: 13:33 VIS not applicable for this client. ll1 Outcome: 11:42 Discharge ordered by . helen 13:28 Patient left the ED. iw 13:32 Discharged to home ambulatory, ll1 13:32 Condition: stable 13:32 Discharge instructions given to patient, Instructed on discharge instructions, follow up and referral plans. medication usage, Demonstrated understanding of instructions, follow-up care, medications, Prescriptions given X 3, Signatures: Dispatcher [employer] EDMS Anatoly Stuart MD MD cha Rivera, Mary, [facility] Reg mr Ana Luisa Cuevas, RN Jacki Bourne RN RN ll1 Leland Miguel ty Corrections: (The following items were deleted from the chart) 09:51 09:50 Respiratory: Reports shortness of breath at rest Onset: The symptoms/episode ll1 began/occurred 2 days ago, the patient has mild shortness of breath ll1
[2023-09-14 12:51] LABS: Specific Gravity 1.011 (1.005-1.030); Transitional Epithelial <5 /HPF (None Seen); Urine Bacteria None Seen /HPF (<20); Urine Bilirubin NEGATIVE (Negative); Urine Blood Negative (Negative); Urine Clarity Turbid (Clear); Urine Color Light-Yellow (Yellow); Urine Glucose NEGATIVE (Negative); Urine Mucus 1+ /HPF (None Seen); Urine Protein NEGATIVE (Negative); Urine RBC <5 /HPF (None Seen); Urine Urobilinogen Normal (Normal); Urine pH 5.5 (5.0-7.0)
--- NOTE | 2023-09-14 12:56 | RAD REPORT ---
EXAM DESCRIPTION: US - Extrem Venous W Compress Evaristo - 09/14/2023 12:14 pm CLINICAL HISTORY: Pain, swelling COMPARISON: None. TECHNIQUE: Real-time sonographic evaluation of the bilateral lower extremity deep venous systems was performed. FINDINGS: Normal compressibility, flow augmentation, phasic flow and spontaneous flow is identified in both the left and right lower extremity deep venous systems. No intraluminal filling defects seen. IMPRESSION: No DVT in either lower extremity.
[2023-09-14 14:22] VITALS: TEMP 98; O2SAT 95
[2023-09-14 14:36] VITALS: BP 133/66
--- NOTE | 2023-09-18 17:09 | EKG ---
Test Date: 2023-09-14 Test Time: 09:53:40 Database Management Specialist: BRANDY MEASUREMENT RESULTS: Intervals: Rate: 68 MO: 164 QRSD: 76 QT: 394 QTc: 418 [place]: P: 31 MO: 164 QRS: 26 T: 7 INTERPRETIVE STATEMENTS: Normal sinus rhythm Normal ECG Compared to ECG 10/10/2007 08:54:54 Left ventricular hypertrophy no longer present Electronically Signed On 09-18-23 16:56:43 PRACTICE BILLING ASSOCIATE by Christiano Carr
== END ==
LOC: ER 09:25
DX: I50.40 Unspecified combined systolic (congestive) and diastolic (congestive) heart failure (principal); N39.0 Urinary tract infection, site not specified; R06.00 Dyspnea, unspecified; F32.A Depression, unspecified; E78.00 Pure hypercholesterolemia, unspecified; I10 Essential (primary) hypertension; E66.9 Obesity, unspecified
CPT/HCPCS: 96361; 93005; 85025; 81001; 80048; 36415; 83735; 85610; 80076; 84443; 84484; 84439; 83690; 83880; 71045; 93970; 96374; 99284; J1940; J7040

== ENCOUNTER 2024-11-15 21:33 | Emergency (ER) | payer BC, OTHER ==
--- OUTSIDE RECORDS SUMMARY | 2024-11-15 21:40 | XMS REPORT | Continuity of Care Document ---
Author Name Unknown Address [address] [facility] [address] [place] [address] [facility] Address [address] [facility] [address] [place] [address] Care Team Providers Care Starch Treating Assistant Name Role Phone KAYLEN JEFFERSON Primary Care Physician Catrina Raygoza Attending Clinician Unavail able Kaylen Jefferson Attending Clinician Unavailable Shanita Ahmadi Attending Clinician Unavailable Barb Barton Attending Clinician Unavailable MORA ORTIZ Attending Clinician MORA Perry Attending Clinician Ginger vogel Doctor Unassigned, [place] Attending Clinician Yann Lai Attending Clinician [phone] Alisa Garcia RN Attending Clinician YANN Vail Attending Clinician Unavailable Unknown, Attending Attending Clinician UnavailLianne Mcfadden PA-C Attending Clinician [phone] Unknown, Attending Attending Clinician Unavailab LIANNE Boyle Attending Clinician Unavailable LAKIA METCALF Attending Clinician Unavailable REKHA FIGUEROA Attending Clinician Unavailable PARAG BALLARD Attending Clinician UnavailPARAG Macedo Attending Clinician Unavaila KIERSTEN Resendiz Attending Clinician Unavailable Rekha Boone Attending Clinician [phone] Lakia Metcalf MD Attending Clinician [phone] Faculty, Pulmonary Attending Clinician Unavailab d[facility], [facility] Attending Clinician UnavailParag Macedo MD Attending Clinician Doctor Unassigned, [place] Attending Clinician [place] [address], [facility] Attending Clinician Unavailable Penny MENDOSA, Marialuisa Mcneal Attending Clinician Unavail able CEDRIC BUCK Attending Clinician Unavailable Skyler FERGUSON, Casimiro Attending Clinician [phone] Cedric Buck MD Attending Clinician [phone] Braulio MENDOSA, Estefanía Finnegan Attending Clinician Unavaila JIHAN Arzola Attending Clinician Unavailable Ebsahra FERGUSON, Jihan Attending Clinician [phone] GLORY HARRIS Attending Clinician UnavailGLORY Link Attending Clinician Unavaila Sarah Downing MA Attending Clinician Unavailabl e Lab, Ang - Db Attending Clinician Unavailable DAMIEN DONATO Attending Clinician Unavailable Allyssa Gonzales MD Attending Clinician [phone] Damien Donato MD Attending Clinician [phone] NATHALY GUILLEN Attending Clinician Unavailable Nathaly Guillen MD Attending Clinician [phone] [facility] Attending Clinician Unavailable Sarah Rain MA Attending Clinician UnaMARIA D Almonte Attending Clinician Unavailable CEDRIC BUCK Admitting Clinician Unavailable Cedric Buck MD Admitting Clinician [phone] DAMIEN DONATO Admitting Clinician Unavailable Payers Payer Name Policy Type Policy Number Effective Date Expiration Date Source [facility] [id number] 2024 00:00:00 [place] [address] [id number] [facility] Problems Condition Name Condition Details Condition Category Status Onset Date Resolution Date Last Treatment Date Treating Clinician Comments Source Family history of early CAD Family history of early CAD Disease Active 00:00: 00 [facility] Primary hypertensi on Primary hypertensi on Disease Active 09-20 00:00: 00 [facility] Other hyperlipid emia Other hyperlipid emia Disease Active 09-20 00:00: 00 [facility] Chronic diastolic congestive heart failure Chronic diastolic congestive heart failure Disease Active 09-20 00:00: 00 [facility] Snores Snores Disease Active 09-20 00:00: 00 [facility] Leg swelling Leg swelling Disease Active 09-20 00:00: 00 [facility] Shortness of breath Shortness of breath Disease Active 09-19 00:00: 00 [facility] Morbid obesity with body mass index of 40.0-49.9 Morbid obesity with body mass index of 40.0-49.9 Disease Active 09-19 00:00: 00 [facility] Phlebolith Phlebolith Disease Active 12-08 00:00: 00 [facility] Elevated serum hCG in female, not Elevated serum hCG in female, not Disease Active 12-08 00:00: 00 [facility] Screening mammogram, encounter for Screening mammogram, encounter for Disease Active 03-23 00:00: 00 [facility] BMI 40.0-44.9, adult BMI 40.0-44.9, adult Disease Active 03-23 00:00: 00 [facility] UTI (lower urinary tract infection) UTI (lower urinary tract infection) Disease Active 2014-08 00:00: 00 [facility] Obesity Obesity Disease Active 2014-08 00:00: 00 [facility] Low back pain Low back pain, unspecifie d Problem [facility] [id number] Unable to concentrat e Problem [facility] [id number] Opioid use disorder, moderate, dependence Problem [facility] [id number] Acute congestive heart failure, unspecifie d heart failure type Problem [facility] [id number] Urinary frequency Problem [facility] [id number] Low back pain Problem [facility] [id number] Dizziness Problem [facility] [id number] Weakness Problem [facility] [id number] Subclinica l hypothyroi dism Problem [facility] [id number] Depression , unspecifie d depression type Problem [facility] [id number] Stage 3a chronic kidney disease Problem [facility] [id number] Family history of diabetes mellitus Problem [facility] [id number] Major depressive disorder in partial remission, unspecifie d whether recurrent Problem [facility] [id number] Chronic systolic congestive heart failure Problem [facility] [id number] Left lower quadrant abdominal pain Problem [facility] [id number] Morbid obesity due to excess calories Problem [facility] [id number] Opioid withdrawal Problem [facility] [id number] Mixed hyperlipid emia Problem [facility] Constipati on Constipati on Problem [facility] [id number] Grief Problem [facility] [id number] Elevated blood pressure reading without diagnosis of hypertensi on Problem [facility] [id number] Lymphocyto sis Problem [facility] [id number] Sweating increase Problem [facility] Chronic pain Other chronic pain Problem [facility] [id number] Right shoulder pain, unspecifie d chronicity Problem [facility] [id number] Acquired hypothyroi dism Problem [facility] [id number] CONSTANZA on CPAP Problem [facility] [id number] Elevated liver enzymes Problem [facility] Pain in right leg Right leg pain Problem [facility] [id number] Primary insomnia Problem [facility] Hypertensi on Hypertensi on Problem [facility] Herpetic gingivosto matitis Recurrent oral herpes simplex Problem [facility] Anemia Anemia, unspecifie d type Problem [facility] Screening for malignant neoplasm of the cervix Screening for malignant neoplasm of the cervix Disease Resolve d 03-23 00:00: 00 2023-10-12 00:00:00 2023-10-12 11:36:47 [facility] Breast cancer screening Breast cancer screening Disease Resolve d 2014-08 00:00: 00 2023-10-12 00:00:00 2023-10-12 11:36:50 [facility] Allergies, Adverse Reactions, Alerts Allergy Name Allergy Type Status Severity Reaction(s) Onset Date Inactive Date Treating Clinician Comments Source NO KNOWN ALLERGIE S Drug Class Active [facility] Social History Social Habit Start Date Stop Date Quantity Comments Source Gender identity [facility] History [facility] Tobacco Use [facility] Sex Assigned At [facility] Alcoholic beverage intake 2024-05-31 00:00:00 2024-05-31 00:00:00 0 /d [facility] Alcohol intake 2023-10-26 00:00:00 2023-10-26 00:00:00 0 /d [facility] Tobacco use and exposure 2023-09-19 00:00:00 2023-09-19 00:00:00 Smokeless tobacco non-user [facility] History of Social function 2023-08-01 00:00:00 2023-08-01 00:00:00 [facility] Exposure to SARS-CoV-2 (event) 2022-12-27 00:00:00 2023-01-06 12:18:00 Not sure [facility] Smoking Status Start Date Stop Date Source Never smoked tobacco [facility] Medications Ordered Medication Name Filled Medication Name Start Date Stop Date Current Medication? Ordering Clinician Indication Dosage Frequency Signature (SIG) Comments Components Source Zepbound 2.5 MG/0.5ML Zepbound 2.5 MG/0.5ML 08-29 00:00: 00 No .5{ml} Zepbound 2.5 MG/0.5ML Hydrocortis one 2.5 % Hydrocortis one 2.5 % 08-29 00:00: 00 No 1{appli cation} QD Hydrocorti sone 2.5 % Iron (Ferrous Sulfate) 325 (65 Fe) MG Iron (Ferrous Sulfate) 325 (65 Fe) MG 08-29 00:00: 00 No 1{table t} Iron (Ferrous Sulfate) 325 (65 Fe) MG ARIPiprazol e 5 MG ARIPiprazol e 5 MG 08-29 00:00: 00 No 1{table t} QD ARIPiprazo le 5 MG ketorolac (TORADOL) injection 30 mg 2023-08 00:56: 00 08-17 01:04 :00 No [id number] 30mg 30 mg, Intramuscu lar, ONCE, 1 dose, On Mon08/16/24 at 1900, Routine [facility] Nitrofurant oin&Nit. Macrocryst 100 mg capsule 2023-08 00:00: 00 08-24 05:59 :00 No [id number] 100mg Take 1 capsule by mouth in the morning and 1 capsule in the evening. Do all this for 7 days. [facility] methocarbam oL 500 mg tablet 2023-08 00:00: 00 08-22 05:59 :00 No [id number] 500mg Take 1 tablet by mouth 4 (four) times daily as needed for Pain (scale 7-10) for up to 5 days. [facility] traMADoL 50 mg tablet 2023-08 00:00: 00 08-20 05:59 :00 No [id number] 50mg Take 1 tablet by mouth every 8 (eight) hours as needed for Pain (scale 7-10) for up to 3 days. Indication s: acute pain [facility] ketorolac (TORADOL) injection 30 mg 2023-08 0-04 21:32: 00 05-31 21:35 :00 No [id number] 30mg 30 mg, Intramuscu lar, ONCE, 1 dose, On Mon05/31/24 at 1645, Routine [facility] amoxicillin -clavulanat e (AUGMENTIN) 875-125 mg per tablet 2023-08 0- 00:00: 00 06-11 04:59 :00 No [id number] 1{tbl} Take 1 tablet by mouth in the morning and 1 tablet in the evening. Do all this for 10 days. [facility] diphenhydrA MINE HCl 25 MG diphenhydrA MINE HCl 25 MG 03-25 00:00: 00 No 1{marcieu le_at_b edtime_ as_need ed} QD diphenhydr AMINE HCl 25 MG traZODone HCl 300 MG traZODone HCl 300 MG 03-25 00:00: 00 No 1{table t_at_be dtime_a s_neede d} QD traZODone HCl 300 MG ibuprofen 800 mg tablet 6-18 00:00: 00 Yes [id number] 800mg Take 1 tablet by mouth every 6 (six) hours as needed for Pain (scale 4-6). [facility] azithromyci n 250 mg tablet 3-25 00:00: 00 Yes [id number] Z pack as directed. [facility] furosemide 40 mg tablet 2-29 00:00: 00 Yes [id number] 40mg Take 1 tablet by mouth in the morning. [facility] furosemide 40 mg tablet 2-26 00:00: 00 00:00 :00 No [id number] 40mg Take 1 tablet by mouth every morning and evening. [facility] Cyclobenzap rine HCl 10 MG Cyclobenzap rine HCl 10 MG 2-16 00:00: 00 No 1{table t_at_be dtime_a s_neede d} QD Cyclobenza naman HCl 10 MG Lidocaine 5 % Lidocaine 5 % 16 00:00: 00 No QD Lidocaine 5 % SERTraline 100 mg tablet 10-12 11:42: 37 Yes 2 tablet Orally Once a day for depression for 90 days [facility] rosuvastati n 20 mg tablet 10-12 11:42: 37 Yes 1 tablet in evening Orally Once a day for high cholestero l/triglyce rides for 90 days [facility] ondansetron 4 mg disintegrat ing tablet 10-12 11:: 10-12 00:00 :00 No 1 tablet on the tongue and allow to dissolve Orally TID for 5 days [facility] enalapril 10 mg tablet 10-12 11:: 10-12 00:00 :00 No Take by mouth daily. [facility] hydrocortis one 25 mg suppository 10-12 00:00: 00 Yes [id number] 25mg Insert 1 Suppositor y into rectum in the morning and 1 Suppositor y in the evening. [facility] Ampicillin 500 MG Ampicillin 500 MG 14 00:00: 00 No QID Ampicillin 500 MG spironolact one 25 mg tablet 09-26 00:00: 00 Yes [id number] 25mg Take 1 tablet by mouth in the morning. [facility] empaglifloz in 10 mg 09-26 00:00: 00 00:00 :00 No [id number] 10mg Take 1 tablet by mouth in the morning. [facility] furosemide 40 mg tablet 09-26 00:00: 00 10-22 00:00 :00 No [id number] 40mg Take 1 tablet by mouth every morning and evening. [facility] spironolact one 25 mg tablet 09-22 00:00: 00 09-26 00:00 :00 No [id number] 25mg Take 1 tablet by mouth in the morning. [facility] enalapril 10 mg tablet 09-21 15:01: 53 Yes Take by mouth daily. [facility] SERTraline 100 mg tablet 09-21 15:01: 53 Yes 2 tablet Orally Once a day for depression for 90 days [facility] ondansetron 4 mg disintegrat ing tablet 09-21 15:01: 53 Yes 1 tablet on the tongue and allow to dissolve Orally TID for 5 days [facility] rosuvastati n 20 mg tablet 09-21 15:01: 53 Yes 1 tablet in evening Orally Once a day for high cholestero l/triglyce rides for 90 days [facility] rosuvastati n (CRESTOR) tablet 20 mg 09-21 03:00: 00 Yes 20mg 20 mg, Oral, QHS, First dose on Mon09/20/23 at 2100, Until Discontinu ed, Routine [facility] furosemide 40 mg tablet 09-21 00:00: 00 09-26 00:00 :00 No [id number] 40mg Take 1 tablet by mouth every morning and evening. [facility] empaglifloz in 10 mg 09-21 00:00: 00 09-26 00:00 :00 No [id number] 10mg Take 1 tablet by mouth in the morning. [facility] pantoprazol e (PROTONIX) EC tablet 40 mg 09-20 17:00: 00 Yes 40mg 40 mg, Oral, DAILY, First dose on Mon09/20/23 at 1100, Until Discontinu ed, Routine [facility] sulfur hexafluorid e microsphr (LUMASON) injection 5 mL 09-20 17:00: 00 09-20 17:00 :00 No [id number] 5mL 5 mL, Intravenou s, ONCE, 1 dose, On Mon09/20/23 at 1100, Routine
[employer] member approving Restricted medication : HUSSAIN YUAN [facility] ondansetron (ZOFRAN (PF)) injection 4 mg 09-20 16:12: 24 Yes 4mg 4 mg, Slow IV Push, Q6HPRN, Nausea and Vomiting (N/V), Starting on Mon09/20/23 at 1012
Do ses of ondansetro n 16 mg and above need to be administer ed via IV piggyback. For Dose >=24mg ECG monitoring is advisable.
[facility] spironolact one (ALDACTONE) tablet 25 mg 09-20 15:00: 00 Yes 25mg 25 mg, Oral, DAILY, First dose on Mon09/20/23 at 0900, Until Discontinu ed, Routine [facility] SERTraline (ZOLOFT) tablet 200 mg 09-20 15:00: 00 Yes 200mg 200 mg, Oral, DAILY, First dose (after last modificati on) on Mon09/20/23 at 0900, Until Discontinu ed, Routine [facility] enoxaparin (LOVENOX) injection 40 mg 09-20 15:00: 00 Yes 40mg 40 mg, Subcutaneo us, DAILY, First dose on Mon09/20/23 at 0900, Until Discontinu ed, Routine [facility] lisinopriL (PRINIVIL,Z ESTRIL) tablet 20 mg 09-20 15:00: 00 Yes 20mg 20 mg, Oral, DAILY, First dose on Mon09/20/23 at 0900, Until Discontinu ed [facility] furosemide (LASIX) injection 40 mg 09-20 14:00: 00 Yes 40mg 40 mg, Slow IV Push, BID MEALS, First dose on Mon09/20/23 at 0800, Until Discontinu ed, Routine [facility] acetaminoph en (TYLENOL) tablet 650 mg 09-20 03:56: 27 Yes 650mg 650 mg, Oral, Q6HPRN, Starting on Mon09/19/23 at 2156, Until Discontinu ed, Routine, Pain (scale 1-3) [facility] proMETHazin e (PHENERGAN) tablet 25 mg 09-20 03:56: 00 Yes 25mg 25 mg, Oral, Q4HPRN, Starting on Mon09/19/23 at 2156, Until Discontinu ed, Routine, Nausea and Vomiting (N/V) [facility] dicyclomine (BENTYL) tablet 20 mg 09-20 03:55: 34 Yes 20mg 20 mg, Oral, Q6HPRN, Starting on Mon09/19/23 at 2155, Until Discontinu ed, Routine, Abdominal pain [facility] iopamidol (ISOVUE 370-500 mL) injection 100 mL 09-20 00:30: 00 09-20 00:30 :00 No [id number] 100mL 100 mL, Intravenou s, ONCE, 1 dose, On Mon09/19/23 at 1830, Routine [facility] furosemide (LASIX) injection 40 mg 09-19 22:15: 00 09-19 22:22 :00 No 40mg 40 mg, IV Push, ONCE, 1 dose, On Mon09/19/23 at 1615, SIVAKUMAR [facility] sodium chloride (NS) injection 5 mL 09-19 21:08: 37 Yes 5mL 5 mL, Intravenou s, PRN, Starting on Mon09/19/23 at 1508, Until Discontinu ed, Routine, IV line flushing [facility] valACYclovi r HCl 1 GM valACYclovi r HCl 1 GM 1-02 00:00: 00 No 2{table ts} BID valACYclov ir HCl 1 GM promethazin e-dextromet horphan 6.25-15 mg/5 mL syrup 2022-08 2-05 00:00: 00 08-12 05:59 :00 No [id number] 5mL Take 5 mL by mouth 4 (four) times daily for 10 days. [facility] iopamidol (ISOVUE 370-500 mL) injection 100 mL 12-05 03:15: 00 12-05 03:15 :00 No [id number] 100mL 100 mL, Intravenou s, ONCE, 1 dose, On 4/9/23 at 2215, Routine [facility] NaCl 0.9% (NS) IV infusion 1,000 mL 12-05 02:15: 00 12-05 04:46 :00 No 1000mL at 999 mL/hr, Intravenou s, ONCE, 1 dose, On Mon12/04/22 at 2115, Routine [facility] NaCl 0.9% (NS) bolus infusion 1,000 mL 12-05 00:00: 00 12-05 00:51 :00 No 1000mL at 999 mL/hr, 1,000 mL, IV Infusion, ONCE, 1 dose, On Mon12/04/22 at 1900, [facility] ondansetron (ZOFRAN (PF)) injection 4 mg 12-04 23:15: 00 12-04 23:43 :00 No 4mg 4 mg, Slow IV Push, ONCE, 1 dose, On Mon12/04/22 at 1815, [facility] dicyclomine 20 mg tablet 12-04 00:00: 00 Yes [id number] 20mg Take 1 tablet by mouth every 6 (six) hours as needed for Abdominal pain. [facility] ondansetron (ZOFRAN) 4 mg tablet 12-04 00:00: 00 09-21 00:00 :00 No [id number] 4mg Take 1 tablet by mouth every 8 (eight) hours as needed for Nausea and Vomiting (N/V). [facility] ondansetron (ZOFRAN-ODT ) disintegrat ing tablet 8 mg 11-30 19:45: 00 11-30 18:50 :00 No [id number] [facility] S[facility] mg tablet 11-30 13:36: 46 Yes 2 tablet Orally Once a day for depression for 90 days [facility] ondansetron 4 mg disintegrat ing tablet 11-30 13:36: 46 Yes 1 tablet on the tongue and allow to dissolve Orally TID for 5 days [facility] rosuvastati n 20 mg tablet 11-30 13:36: 46 Yes 1 tablet in evening Orally Once a day for high cholestero l/triglyce rides for 90 days [facility] proMETHazin e 25 mg tablet 11-30 00:00: 00 Yes [id number] 25mg Take 1 tablet by mouth every 4 (four) hours as needed for Nausea and Vomiting (N/V). [facility] bismuth subsalicyla te (PEPTO-BISM OL) 262 mg chewable tablet 11-30 00:00: 00 12-04 04:59 :00 No [id number] 524mg Take 2 tablets by mouth every 4 (four) hours as needed for Pain (scale 4-6) or Pain (scale 7-10) for up to 3 days. [facility] OZEMPIC 2 mg/dose (8 mg/3 mL) PnIj 11-19 00:00: 00 10-12 00:00 :00 No INJECT 2 MG SUBCUTANEO USLY WEEKLY [facility] phentermine 37.5 mg tablet 24 00:00: 00 10-12 00:00 :00 No 37.5mg Take 1 tablet by mouth in the morning. [facility] diclofenac 75 mg EC tablet 11-16 00:00: 00 02-12 00:00 :00 No TAKE ONE (1) TABLET(S) BY MOUTH TWICE A DAY NEEDED FOR PAIN. [facility] amoxicillin -pot clavulanate 500 mg 500-125 mg tablet 11-07 00:00: 00 11-30 00:00 :00 No TAKE ONE (1) TABLET(S) BY MOUTH TWICE A DAY FOR 5 DAYS. [facility] ketorolac (TORADOL) injection 30 mg 10-20 20:15: 00 10-20 19:28 :00 No [id number] 30mg [facility] meloxicam (MOBIC) 15 mg tablet 10-20 00:00: 00 11-05 05:59 :00 No [id number] 15mg Take 1 tablet by mouth in the morning for 15 days. [facility] methocarbam oL (ROBAXIN-75 0) 750 mg tablet 10-20 00:00: 00 10-31 05:59 :00 No [id number] 750mg Take 1 tablet by mouth 4 (four) times daily for 10 days. [facility] cloNIDine 0.1 mg tablet 02-09 00:00: 00 00:00 :00 No .1mg Take 1 tablet by mouth in the morning and 1 tablet in the evening. [facility] enalapril 10 mg tablet 09-08 14:26: 40 Yes Take by mouth daily. [facility] SERTraline 100 mg tablet 2019-08 00:00: 00 11-30 00:00 :00 No 1{tbl} Take 1 tablet by mouth daily. [facility] Gabapentin 300 MG Gabapentin 300 MG No 1{capsu le} BID Gabapentin 300 MG Furosemide 40 MG Furosemide 40 MG No 1{table t} BID Furosemide 40 MG Spironolact one 25 MG Spironolact one 25 MG No 1{table t} Spironolac tone 25 MG Jardiance 10 MG Jardiance 10 MG No 1{table t} QD Jardiance 10 MG Crestor 40 MG Crestor 40 MG No 1{table t} QD Crestor 40 MG traZODone HCl 100 MG traZODone HCl 100 MG No 1{table t_at_be dtime} QD traZODone HCl 100 MG Qelbree 150 MG Qelbree 150 MG No 2{capsu les} BID Qelbree 150 MG Immunizations Ordered Immunization Name Filled Immunization Name Date Status Comments Source Flucelvax - single dose syringe Flucelvax - single dose syringe 2022-05-11 15:26:00 Completed [facility] Flucelvax - single dose syringe Flucelvax - single dose syringe 2022-05-11 15:26:00 [facility] SARS-COV-2 COVID-19 PFIZER VACCINE 2020-11-14 00:00:00 Completed [facility] SARS-COV-2 COVID-19 PFIZER VACCINE 2020-11-14 00:00:00 Completed [facility] SARS-COV-2 COVID-19 PFIZER VACCINE 2020-11-14 00:00:00 Completed [facility] SARS-COV-2 COVID-19 PFIZER VACCINE 2020-11-14 00:00:00 Completed [facility] SARS-COV-2 COVID-19 PFIZER VACCINE 2020-11-14 00:00:00 Completed [facility] SARS-COV-2 COVID-19 PFIZER VACCINE 2020-11-14 00:00:00 Completed [facility] SARS-COV-2 COVID-19 PFIZER VACCINE 2020-11-14 00:00:00 Completed [facility] SARS-COV-2 COVID-19 PFIZER VACCINE 2020-11-14 00:00:00 Completed [facility] SARS-COV-2 COVID-19 PFIZER VACCINE 2020-11-14 00:00:00 Completed [facility] SARS-COV-2 COVID-19 PFIZER VACCINE 2020-11-14 00:00:00 Completed [facility] SARS-COV-2 COVID-19 PFIZER VACCINE 2020-11-14 00:00:00 Completed [facility] SARS-COV-2 COVID-19 PFIZER VACCINE 2020-11-14 00:00:00 Completed [facility] SARS-COV-2 COVID-19 PFIZER VACCINE 2020-11-14 00:00:00 Completed [facility] SARS-COV-2 COVID-19 PFIZER VACCINE 2020-11-14 00:00:00 Completed [facility] SARS-COV-2 COVID-19 PFIZER VACCINE 2020-11-14 00:00:00 Completed [facility] SARS-COV-2 COVID-19 PFIZER VACCINE 2020-11-14 00:00:00 Completed [facility] SARS-COV-2 COVID-19 PFIZER VACCINE 2020-11-14 00:00:00 Completed [facility] SARS-COV-2 COVID-19 PFIZER VACCINE 2020-11-14 00:00:00 Completed [facility] SARS-COV-2 COVID-19 PFIZER VACCINE 2020-11-14 00:00:00 Completed [facility] SARS-COV-2 COVID-19 PFIZER VACCINE 2020-11-14 00:00:00 Completed [facility] SARS-COV-2 COVID-19 PFIZER VACCINE 2020-11-14 00:00:00 Completed [facility] SARS-COV-2 COVID-19 PFIZER VACCINE 2020-11-14 00:00:00 Completed [facility] SARS-COV-2 COVID-19 PFIZER VACCINE 2020-10-24 00:00:00 Completed [facility] SARS-COV-2 COVID-19 PFIZER VACCINE 2020-10-24 00:00:00 Completed [facility] SARS-COV-2 COVID-19 PFIZER VACCINE 2020-10-24 00:00:00 Completed [facility] SARS-COV-2 COVID-19 PFIZER VACCINE 2020-10-24 00:00:00 Completed [facility] SARS-COV-2 COVID-19 PFIZER VACCINE 2020-10-24 00:00:00 Completed [facility] SARS-COV-2 COVID-19 PFIZER VACCINE 2020-10-24 00:00:00 Completed [facility] SARS-COV-2 COVID-19 PFIZER VACCINE 2020-10-24 00:00:00 Completed [facility] SARS-COV-2 COVID-19 PFIZER VACCINE 2020-10-24 00:00:00 Completed [facility] SARS-COV-2 COVID-19 PFIZER VACCINE 2020-10-24 00:00:00 Completed [facility] SARS-COV-2 COVID-19 PFIZER VACCINE 2020-10-24 00:00:00 Completed [facility] SARS-COV-2 COVID-19 PFIZER VACCINE 2020-10-24 00:00:00 Completed [facility] SARS-COV-2 COVID-19 PFIZER VACCINE 2020-10-24 00:00:00 Completed [facility] SARS-COV-2 COVID-19 PFIZER VACCINE 2020-10-24 00:00:00 Completed [facility] SARS-COV-2 COVID-19 PFIZER VACCINE 2020-10-24 00:00:00 Completed [facility] SARS-COV-2 COVID-19 PFIZER VACCINE 2020-10-24 00:00:00 Completed [facility] SARS-COV-2 COVID-19 PFIZER VACCINE 2020-10-24 00:00:00 Completed [facility] SARS-COV-2 COVID-19 PFIZER VACCINE 2020-10-24 00:00:00 Completed [facility] SARS-COV-2 COVID-19 PFIZER VACCINE 2020-10-24 00:00:00 Completed [facility] SARS-COV-2 COVID-19 PFIZER VACCINE 2020-10-24 00:00:00 Completed [facility] SARS-COV-2 COVID-19 PFIZER VACCINE 2020-10-24 00:00:00 Completed [facility] SARS-COV-2 COVID-19 PFIZER VACCINE 2020-10-24 00:00:00 Completed [facility] SARS-COV-2 COVID-19 PFIZER VACCINE 2020-10-24 00:00:00 Completed [facility] Influenza Virus Vaccine (3+ yrs) 2020-07-27 00:00:00 Completed [facility] Influenza Virus Vaccine (3+ yrs) 2020-07-27 00:00:00 Completed [facility] Influenza Virus Vaccine (3+ yrs) 2020-07-27 00:00:00 Completed [facility] Influenza Virus Vaccine (3+ yrs) 2020-07-27 00:00:00 Completed [facility] Influenza, split virus, trivalent, preservative (3+ Yrs) (Afluria) 2020-07-27 00:00:00 Completed [facility] Influenza, split virus, trivalent, preservative (3+ Yrs) (Afluria) 2020-07-27 00:00:00 Completed [facility] Influenza Virus Vaccine (3+ yrs) 2020-07-27 00:00:00 Completed [facility] Influenza Virus Vaccine (3+ yrs) 2020-07-27 00:00:00 Completed [facility] Influenza Virus Vaccine (3+ yrs) 2020-07-27 00:00:00 Completed [facility] Influenza Virus Vaccine (3+ yrs) 2020-07-27 00:00:00 Completed [facility] Influenza Virus Vaccine (3+ yrs) 2020-07-27 00:00:00 Completed [facility] Influenza Virus Vaccine (3+ yrs) 2020-07-27 00:00:00 Completed [facility] Influenza Virus Vaccine (3+ yrs) 2020-07-27 00:00:00 Completed [facility] Influenza Virus Vaccine (3+ yrs) 2020-07-27 00:00:00 Completed [facility] Influenza Virus Vaccine (3+ yrs) 2020-07-27 00:00:00 Completed [facility] Influenza Virus Vaccine (3+ yrs) 2020-07-27 00:00:00 Completed [facility] Influenza Virus Vaccine (3+ yrs) 2020-07-27 00:00:00 Completed [facility] Influenza Virus Vaccine (3+ yrs) 2020-07-27 00:00:00 Completed [facility] Influenza Virus Vaccine (3+ yrs) 2020-07-27 00:00:00 Completed [facility] Influenza Virus Vaccine (3+ yrs) 2020-07-27 00:00:00 Completed [facility] Influenza Virus Vaccine (3+ yrs) 2020-07-27 00:00:00 Completed [facility] Influenza Virus Vaccine (3+ yrs) 2020-07-27 00:00:00 Completed [facility] Flucelvax (ccIIV4) - SDS - 0.5mL Flucelvax (ccIIV4) - SDS - 0.5mL 2020-07-08 16:39:00 Completed [facility] Flucelvax - single dose syringe Flucelvax - single dose syringe 2020-07-08 16:39:00 Completed [facility] Flucelvax - single dose syringe Flucelvax - single dose syringe 2020-07-08 16:39:00 Completed [facility] TDAP 2015-08-04 00:00:00 Completed [facility] TDAP 2015-08-04 00:00:00 Completed [facility] TDAP 2015-08-04 00:00:00 Completed [facility] TDAP 2015-08-04 00:00:00 Completed [facility] TDAP 2015-08-04 00:00:00 Completed [facility]AP 2015-08-04 00:00:00 Completed [facility]AP 2015-08-04 00:00:00 Completed [facility] TDAP 2015-08-04 00:00:00 Completed [facility] TDAP 2015-08-04 00:00:00 Completed [facility] TDAP 2015-08-04 00:00:00 Completed [facility] TDAP 2015-08-04 00:00:00 Completed [facility] TDAP 2015-08-04 00:00:00 Completed [facility] TDAP 2015-08-04 00:00:00 Completed [facility] TDAP 2015-08-04 00:00:00 Completed [facility] TDAP 2015-08-04 00:00:00 Completed [facility] TDAP 2015-08-04 00:00:00 Completed [facility] TDAP 2015-08-04 00:00:00 Completed [facility] TDAP 2015-08-04 00:00:00 Completed [facility] TDAP 2015-08-04 00:00:00 Completed [facility] TDAP 2015-08-04 00:00:00 Completed [facility] TDAP 2015-08-04 00:00:00 Completed [facility] TDAP 2015-08-04 00:00:00 Completed [facility] TDAP Unknown Completed [facility] Influenza Virus Vaccine (3+ yrs) Unknown Completed [facility] SARS-COV-2 COVID-19 PFIZER VACCINE Unknown Completed [facility] TDAP Unknown Completed [facility] Influenza Virus Vaccine (3+ yrs) Unknown Completed [facility] SARS-COV-2 COVID-19 PFIZER VACCINE Unknown Completed [facility] TDAP Unknown Completed [facility] Influenza Virus Vaccine (3+ yrs) Unknown Completed [facility] SARS-COV-2 COVID-19 PFIZER VACCINE Unknown Completed [facility] TDAP Unknown Completed [facility] Influenza Virus Vaccine (3+ yrs) Unknown Completed [facility] SARS-COV-2 COVID-19 PFIZER VACCINE Unknown Completed [facility] TDAP Unknown Completed [facility] Influenza Virus Vaccine (3+ yrs) Unknown Completed [facility] SARS-COV-2 COVID-19 PFIZER VACCINE Unknown Completed [facility] TDAP Unknown Completed [facility] Influenza Virus Vaccine (3+ yrs) Unknown Completed [facility] SARS-COV-2 COVID-19 PFIZER VACCINE Unknown Completed [facility] TDAP Unknown Completed [facility] Influenza Virus Vaccine (3+ yrs) Unknown Completed [facility] SARS-COV-2 COVID-19 PFIZER VACCINE Unknown Completed [facility] TDAP Unknown Completed [facility] Influenza Virus Vaccine (3+ yrs) Unknown Completed [facility] SARS-COV-2 COVID-19 PFIZER VACCINE Unknown Completed [facility] TDAP Unknown Completed [facility] Influenza Virus Vaccine (3+ yrs) Unknown Completed [facility] SARS-COV-2 COVID-19 PFIZER VACCINE Unknown Completed [facility] TDAP Unknown Completed [facility] Influenza Virus Vaccine (3+ yrs) Unknown Completed [facility] SARS-COV-2 COVID-19 PFIZER VACCINE Unknown Completed [facility] TDAP Unknown Completed [facility] Influenza Virus Vaccine (3+ yrs) Unknown Completed [facility] SARS-COV-2 COVID-19 PFIZER VACCINE Unknown Completed [facility] TDAP Unknown Completed [facility] Influenza Virus Vaccine (3+ yrs) Unknown Completed [facility] SARS-COV-2 COVID-19 PFIZER VACCINE Unknown Completed [facility] TDAP Unknown Completed [facility] Influenza Virus Vaccine (3+ yrs) Unknown Completed [facility] SARS-COV-2 COVID-19 PFIZER VACCINE Unknown Completed [facility] TDAP Unknown Completed [facility] Influenza Virus Vaccine (3+ yrs) Unknown Completed [facility] SARS-COV-2 COVID-19 PFIZER VACCINE Unknown Completed [facility] TDAP Unknown Completed [facility] Influenza Virus Vaccine (3+ yrs) Unknown Completed [facility] SARS-COV-2 COVID-19 PFIZER VACCINE Unknown Completed [facility] TDAP Unknown Completed [facility] Influenza Virus Vaccine (3+ yrs) Unknown Completed [facility] SARS-COV-2 COVID-19 PFIZER VACCINE Unknown Completed [facility] TDAP Unknown Completed [facility] Influenza Virus Vaccine (3+ yrs) Unknown Completed [facility] SARS-COV-2 COVID-19 PFIZER VACCINE Unknown Completed [facility] TDAP Unknown Completed [facility] Influenza Virus Vaccine (3+ yrs) Unknown Completed [facility] SARS-COV-2 COVID-19 PFIZER VACCINE Unknown Completed [facility] TDAP Unknown Completed [facility] Influenza Virus Vaccine (3+ yrs) Unknown Completed [facility] SARS-COV-2 COVID-19 PFIZER VACCINE Unknown Completed [facility] TDAP Unknown Completed [facility] Influenza Virus Vaccine (3+ yrs) Unknown Completed [facility] SARS-COV-2 COVID-19 PFIZER VACCINE Unknown Completed [facility] TDAP Unknown Completed [facility] Influenza Virus Vaccine (3+ yrs) Unknown Completed [facility] TDAP Unknown Completed [facility] Influenza Virus Vaccine (3+ yrs) Unknown Completed [facility] SARS-COV-2 COVID-19 PFIZER VACCINE Unknown Completed [facility] TDAP Unknown Completed [facility] Influenza Virus Vaccine (3+ yrs) Unknown Completed [facility] SARS-COV-2 COVID-19 PFIZER VACCINE Unknown Completed [facility] TDAP Unknown Completed [facility] Influenza Virus Vaccine (3+ yrs) Unknown Completed [facility] SARS-COV-2 COVID-19 PFIZER VACCINE Unknown Completed [facility] SARS-COV-2 COVID-19 PFIZER VACCINE Unknown Completed [facility] TDAP Unknown Completed [facility] Influenza Virus Vaccine (3+ yrs) Unknown Completed [facility] SARS-COV-2 COVID-19 PFIZER VACCINE Unknown Completed [facility] Flucelvax - single dose syringe Flucelvax - single dose syringe Unknown Completed [facility] Flucelvax - single dose syringe Flucelvax - single dose syringe Unknown Completed [facility] Flucelvax - single dose syringe Flucelvax - single dose syringe Unknown Completed [facility] Flucelvax - single dose syringe Flucelvax - single dose syringe Unknown Completed [facility] Flucelvax (ccIIV4) - SDS - 0.5mL Flucelvax (ccIIV4) - SDS - 0.5mL Unknown Completed [facility] Flucelvax (ccIIV4) - SDS - 0.5mL Flucelvax (ccIIV4) - SDS - 0.5mL Unknown Completed [facility] Fluarix (IIV4) - SDS - 0.5mL Fluarix (IIV4) - SDS - 0.5mL Unknown Completed [facility] Flucelvax (ccIIV4) - SDS - 0.5mL Flucelvax (ccIIV4) - SDS - 0.5mL Unknown Completed [facility] Fluarix (IIV4) - SDS - 0.5mL Fluarix (IIV4) - SDS - 0.5mL Unknown Completed [facility] Flucelvax (ccIIV4) - SDS - 0.5mL Flucelvax (ccIIV4) - SDS - 0.5mL Unknown Completed [facility] Fluarix (IIV4) - SDS - 0.5mL Fluarix (IIV4) - SDS - 0.5mL Unknown Completed [facility] Flucelvax (ccIIV4) - SDS - 0.5mL Flucelvax (ccIIV4) - SDS - 0.5mL Unknown Completed [facility] Fluarix (IIV4) - SDS - 0.5mL Fluarix (IIV4) - SDS - 0.5mL Unknown Completed [facility] Flucelvax (ccIIV4) - SDS - 0.5mL Flucelvax (ccIIV4) - SDS - 0.5mL Unknown Completed [facility] Fluarix (IIV4) - SDS - 0.5mL Fluarix (IIV4) - SDS - 0.5mL Unknown Completed [facility] Flucelvax (ccIIV4) - SDS - 0.5mL Flucelvax (ccIIV4) - SDS - 0.5mL Unknown Completed [facility] Fluarix (IIV4) - SDS - 0.5mL Fluarix (IIV4) - SDS - 0.5mL Unknown Completed [facility] Flucelvax (ccIIV4) - SDS - 0.5mL Flucelvax (ccIIV4) - SDS - 0.5mL Unknown Completed [facility] Fluarix (IIV4) - SDS - 0.5mL Fluarix (IIV4) - SDS - 0.5mL Unknown Completed [facility] Flucelvax (ccIIV4) - SDS - 0.5mL Flucelvax (ccIIV4) - SDS - 0.5mL Unknown Completed [facility] Fluarix (IIV4) - SDS - 0.5mL Fluarix (IIV4) - SDS - 0.5mL Unknown Completed [facility] Flucelvax (ccIIV4) - SDS - 0.5mL Flucelvax (ccIIV4) - SDS - 0.5mL Unknown Completed [facility] Fluarix (IIV4) - SDS - 0.5mL Fluarix (IIV4) - SDS - 0.5mL Unknown Completed [facility] Flucelvax (ccIIV4) - SDS - 0.5mL Flucelvax (ccIIV4) - SDS - 0.5mL Unknown Completed [facility] Fluarix (IIV4) - SDS - 0.5mL Fluarix (IIV4) - SDS - 0.5mL Unknown Completed [facility] Flucelvax (ccIIV4) - SDS - 0.5mL Flucelvax (ccIIV4) - SDS - 0.5mL Unknown Completed [facility] Fluarix (IIV4) - SDS - 0.5mL Fluarix (IIV4) - SDS - 0.5mL Unknown Completed [facility] Flucelvax (ccIIV4) - SDS - 0.5mL Flucelvax (ccIIV4) - SDS - 0.5mL Unknown Completed [facility] Fluarix (IIV4) - SDS - 0.5mL Fluarix (IIV4) - SDS - 0.5mL Unknown Completed [facility] Flucelvax (ccIIV4) - SDS - 0.5mL Flucelvax (ccIIV4) - SDS - 0.5mL Unknown Completed [facility] Fluarix (IIV4) - SDS - 0.5mL Fluarix (IIV4) - SDS - 0.5mL Unknown Completed [facility] Flucelvax (ccIIV4) - SDS - 0.5mL Flucelvax (ccIIV4) - SDS - 0.5mL Unknown Completed [facility] Fluarix (IIV4) - SDS - 0.5mL Fluarix (IIV4) - SDS - 0.5mL Unknown Completed [facility] Flucelvax (ccIIV4) - SDS - 0.5mL Flucelvax (ccIIV4) - SDS - 0.5mL Unknown Completed [facility] Fluarix (IIV4) - SDS - 0.5mL Fluarix (IIV4) - SDS - 0.5mL Unknown Completed [facility] Flucelvax (ccIIV4) - SDS - 0.5mL Flucelvax (ccIIV4) - SDS - 0.5mL Unknown Completed [facility] Fluarix (IIV3) - SDS - 0.5mL Fluarix (IIV3) - SDS - 0.5mL Unknown Completed [facility] Prevnar 20 (PCV20) Prevnar 20 (PCV20) Unknown Completed [facility] Vital Signs Vital Name Observation Time Observation Value Comments S ource height 2024-08-29 10:30:00 63 [in_i] Commo n [facility] weight 2024-08-29 10:30:00 243 [lb_av] Comm on [facility] temperature 2024-08-29 10:30:00 97.2 [degF] Com mon [facility] bmi 2024-08-29 10:30:00 43.04 kg/m2 Comm on [facility] oximetry 2024-08-29 10:30:00 97 % Commo n [facility] blood pressure systolic 2024-08-29 10:30:00 116 mm[Hg[facility] blood pressure diastolic 2024-08-29 10:30:00 70 mm[Hg] [facility] Systolic blood pressure 2024-08-17 00:49:00 157 mm[Hg] [facility] Diastolic blood pressure 2024-08-17 00:49:00 74 mm[Hg] [facility] Heart rate 2024-08-17 00:48:00 65 /min [facility] Body temperature 2024-08-17 00:48:00 36.61 Yadi [facility] Respiratory rate 2024-08-17 00:48:00 20 /min [facility] Body weight 2024-08-17 00:48:00 113.49 kg [facility] BMI 2024-08-17 00:48:00 44.32 kg/m2 [facility] Oxygen saturation in Arterial blood by Pulse oximetry 2024-08-17 00:48:00 99 /min [facility] Systolic blood pressure 2024-05-31 21:06:00 135 mm[Hg] [facility] Diastolic blood pressure 2024-05-31 21:06:00 76 mm[Hg] [facility] Heart rate 2024-05-31 21:06:00 65 /min [facility] Body temperature 2024-05-31 21:06:00 36.44 Yadi [facility] Respiratory rate 2024-05-31 21:06:00 18 /min [facility] Body height 2024-05-31 21:06:00 160 cm [facility] Body weight 2024-05-31 21:06:00 109.498 kg [facility] BMI 2024-05-31 21:06:00 42.76 kg/m2 [facility] Oxygen saturation in Arterial blood by Pulse oximetry 2024-05-31 21:06:00 94 /min [facility] height 2024-03-25 13:20:00 63 [in_i] Commo n [facility] weight 2024-03-25 13:20:00 239 [lb_av] Comm on [facility] temperature 2024-03-25 13:20:00 97.6 [degF] Com mon [facility] bmi 2024-03-25 13:20:00 42.33 kg/m2 Comm on [facility] oximetry 2024-03-25 13:20:00 100 % Commo n [facility] respiratory rate 2024-03-25 13:20:00 18 /min [facility] blood pressure systolic 2024-03-25 13:20:00 140 mm[Hg] [facility] blood pressure diastolic 2024-03-25 13:20:00 90 mm[Hg] [facility] height 2024-03-25 13:20:00 63 [in_i] Commo n [facility] weight 2024-03-25 13:20:00 239 [lb_av] Comm on [facility] temperature 2024-03-25 13:20:00 97.6 [degF] Com mon [facility] bmi 2024-03-25 13:20:00 42.33 kg/m2 Comm on [facility] oximetry 2024-03-25 13:20:00 100 % Commo n [facility] respiratory rate 2024-03-25 13:20:00 18 /min [facility] blood pressure systolic 2024-03-25 13:20:00 140 mm[Hg] [facility] blood pressure diastolic 2024-03-25 13:20:00 90 mm[Hg] [facility] Systolic blood pressure 2024-02-13 22:47:00 140 mm[Hg] [facility] Diastolic blood pressure 2024-02-13 22:47:00 78 mm[Hg] [facility] Heart rate 2024-02-13 22:46:00 59 /min [facility] Body temperature 2024-02-13 22:46:00 36.72 Yadi [facility] Respiratory rate 2024-02-13 22:46:00 18 /min [facility] Body height 2024-02-13 22:46:00 160 cm [facility] Body weight 2024-02-13 22:46:00 107.502 kg [facility] BMI 2024-02-13 22:46:00 41.98 kg/m2 [facility] Oxygen saturation in Arterial blood by Pulse oximetry 2024-02-13 22:46:00 96 /min [facility] Systolic blood pressure 2023-11-08 13:20:00 120 mm[Hg] [facility] Diastolic blood pressure 2023-11-08 13:20:00 70 mm[Hg] [facility] Heart rate 2023-11-08 13:20:00 83 /min [facility] Respiratory rate 2023-11-08 13:20:00 18 /min [facility] Body height 2023-11-08 13:20:00 160 cm [facility] Body weight 2023-11-08 13:20:00 107.548 kg [facility] BMI 2023-11-08 13:20:00 42.00 kg/m2 [facility] Oxygen saturation in Arterial blood by Pulse oximetry 2023-11-08 13:20:00 94 /min [facility] Systolic blood pressure 2023-10-26 21:20:00 108 mm[Hg] [facility] Diastolic blood pressure 2023-10-26 21:20:00 45 mm[Hg] [facility] Heart rate 2023-10-26 21:20:00 72 /min [facility] Body temperature 2023-10-26 21:20:00 36.44 Yadi [facility] Body height 2023-10-26 21:20:00 160 cm [facility] Body weight 2023-10-26 21:20:00 109.317 kg [facility] BMI 2023-10-26 21:20:00 42.69 kg/m2 [facility] Oxygen saturation in Arterial blood by Pulse oximetry 2023-10-26 21:20:00 94 /min [facility] height 2023-10-13 15:00:00 63 [in_i] Commo n [facility] weight 2023-10-13 15:00:00 242 [lb_av] Comm on [facility] temperature 2023-10-13 15:00:00 98 [degF] Comm on [facility] bmi 2023-10-13 15:00:00 42.86 kg/m2 Comm on [facility] oximetry 2023-10-13 15:00:00 92 % Commo n [facility] respiratory rate 2023-10-13 15:00:00 20 /min [facility] blood pressure systolic 2023-10-13 15:00:00 113 mm[Hg] [facility] blood pressure diastolic 2023-10-13 15:00:00 56 mm[Hg] [facility] Systolic blood pressure 2023-10-12 17:42:00 109 mm[Hg] [facility] Diastolic blood pressure 2023-10-12 17:42:00 54 mm[Hg] [facility] Body weight 2023-10-12 17:41:00 109.317 kg [facility] BMI 2023-10-12 17:41:00 42.69 kg/m2 [facility] Heart rate 2023-10-12 17:41:00 52 /min [facility] Respiratory rate 2023-10-12 17:41:00 18 /min [facility] Body height 2023-10-12 17:41:00 160 cm [facility] height 2023-09-27 15:00:00 63 [in_i] Commo n [facility] weight 2023-09-27 15:00:00 240.0 [lb_av] Co mmon [facility] temperature 2023-09-27 15:00:00 97.8 [degF] Com mon [facility] bmi 2023-09-27 15:00:00 42.51 kg/m2 Comm on [facility] oximetry 2023-09-27 15:00:00 99 % Commo n [facility] respiratory rate 2023-09-27 15:00:00 18 /min Common [facility] blood pressure systolic 2023-09-27 15:00:00 131 mm[Hg] [facility] blood pressure diastolic 2023-09-27 15:00:00 59 mm[Hg] [facility] Systolic blood pressure 2023-09-26 19:26:00 107 mm[Hg] [facility] Diastolic blood pressure 2023-09-26 19:26:00 47 mm[Hg] [facility] Heart rate 2023-09-26 19:26:00 60 /min [facility] Body temperature 2023-09-26 19:26:00 36.39 Yadi [facility] Respiratory rate 2023-09-26 19:26:00 19 /min [facility] Body height 2023-09-26 19:26:00 160 cm [facility] Body weight 2023-09-26 19:26:00 110.179 kg [facility] BMI 2023-09-26 19:26:00 43.03 kg/m2 [facility] Oxygen saturation in Arterial blood by Pulse oximetry 2023-09-26 19:26:00 100 /min [facility] Systolic blood pressure 2023-09-21 18:51:00 114 mm[Hg] [facility] Diastolic blood pressure 2023-09-21 18:51:00 57 mm[Hg] [facility] Heart rate 2023-09-21 18:51:00 76 /min [facility] Body temperature 2023-09-21 18:51:00 36.22 Yadi [facility] Oxygen saturation in Arterial blood by Pulse oximetry 2023-09-21 18:51:00 91 /min [facility] Respiratory rate 2023-09-21 14:11:00 18 /min [facility] Body weight 2023-09-21 09:08:00 116.484 kg [facility] BMI 2023-09-21 09:08:00 45.49 kg/m2 [facility] Body height 2023-09-19 21:30:00 160 cm [facility] height 2023-09-14 08:20:00 63 [in_i] Commo n [facility] weight 2023-09-14 08:20:00 259 [lb_av] Comm on [facility] temperature 2023-09-14 08:20:00 98.2 [degF] Com [facility] bmi 2023-09-14 08:20:00 45.87 kg/m2 Comm on [facility] oximetry 2023-09-14 08:20:00 96 % Commo n [facility] respiratory rate 2023-09-14 08:20:00 18 /min [facility] blood pressure systolic 2023-09-14 08:20:00 115 mm[Hg] [facility] blood pressure diastolic 2023-09-14 08:20:00 67 mm[Hg] [facility] height 2023-08-29 09:40:00 63 [in_i] Commo n [facility] weight 2023-08-29 09:40:00 235 [lb_av] Comm on [facility] temperature 2023-08-29 09:40:00 97.5 [degF] Com [facility] bmi 2023-08-29 09:40:00 41.62 kg/m2 Comm on [facility] oximetry 2023-08-29 09:40:00 99 % Commo n [facility] blood pressure systolic 2023-08-29 09:40:00 130 mm[Hg] [facility] blood pressure diastolic 2023-08-29 09:40:00 70 mm[Hg] [facility] Systolic blood pressure 2023-08-01 23:53:00 127 mm[Hg] [facility] Diastolic blood pressure 2023-08-01 23:53:00 62 mm[Hg] [facility] Heart rate 2023-08-01 23:52:00 68 /min Un[facility] Body temperature 2023-08-01 23:52:00 36.39 Yadi [facility] Respiratory rate 2023-08-01 23:52:00 16 /min [facility] Body height 2023-08-01 23:52:00 160 cm [facility] Body weight 2023-08-01 23:52:00 107.639 kg [facility] BMI 2023-08-01 23:52:00 42.04 kg/m2 [facility] Oxygen saturation in Arterial blood by Pulse oximetry 2023-08-01 23:52:00 99 /min [facility] height 2023-05-17 11:50:00 63 [in_i] Commo n [facility] weight 2023-05-17 11:50:00 220 [lb_av] Comm on [facility] bmi 2023-05-17 11:50:00 38.97 kg/m2 Comm on [facility] blood pressure systolic 2023-05-17 11:50:00 132 mm[Hg] [facility] blood pressure diastolic 2023-05-17 11:50:00 70 mm[Hg] [facility] Systolic blood pressure 2022-12-08 20:34:00 138 mm[Hg] [facility] Diastolic blood pressure 2022-12-08 20:34:00 75 mm[Hg] [facility] Heart rate 2022-12-08 20:34:00 73 /min Unive [facility] Body temperature 2022-12-08 20:34:00 36.78 Yadi [facility] Respiratory rate 2022-12-08 20:34:00 18 /min [facility] Body height 2022-12-08 20:34:00 160 cm [facility] Body weight 2022-12-08 20:34:00 109.77 kg [facility] BMI 2022-12-08 20:34:00 42.87 kg/m2 [facility] Systolic blood pressure 2022-12-04 22:55:00 163 mm[Hg] [facility] Diastolic blood pressure 2022-12-04 22:55:00 95 mm[Hg] [facility] Heart rate 2022-12-04 22:55:00 94 /min Unive [facility] Body temperature 2022-12-04 22:55:00 36.61 Yadi [facility] Respiratory rate 2022-12-04 22:55:00 20 /min [facility] Body height 2022-12-04 22:55:00 160 cm [facility] Body weight 2022-12-04 22:55:00 104.101 kg [facility] BMI 2022-12-04 22:55:00 40.65 kg/m2 [facility] Oxygen saturation in Arterial blood by Pulse oximetry 2022-12-04 22:55:00 98 /min [facility] Systolic blood pressure 2022-11-30 18:35:00 136 mm[Hg] [facility] Diastolic blood pressure 2022-11-30 18:35:00 81 mm[Hg] [facility] Heart rate 2022-11-30 18:35:00 70 /min [facility] Body temperature 2022-11-30 18:35:00 36.89 Yadi [facility] Respiratory rate 2022-11-30 18:35:00 18 /min [facility] Body height 2022-11-30 18:35:00 160 cm [facility] Body weight 2022-11-30 18:35:00 105.235 kg [facility] BMI 2022-11-30 18:35:00 41.10 kg/m2 [facility] Oxygen saturation in Arterial blood by Pulse oximetry 2022-11-30 18:35:00 99 /min [facility] height 2022-11-14 11:40:00 63 [in_i] Commo n [facility] weight 2022-11-14 11:40:00 240 [lb_av] Comm on [facility] bmi 2022-11-14 11:40:00 42.51 kg/m2 Comm on [facility] blood pressure systolic 2022-11-14 11:40:00 130 mm[Hg] [facility] blood pressure diastolic 2022-11-14 11:40:00 74 mm[Hg] [facility] Systolic blood pressure 2022-10-20 18:56:00 101 mm[Hg] [facility] Diastolic blood pressure 2022-10-20 18:56:00 70 mm[Hg] [facility] Heart rate 2022-10-20 18:56:00 74 /min [facility] Body temperature 2022-10-20 18:56:00 36.72 Yadi [facility] Respiratory rate 2022-10-20 18:56:00 16 /min [facility] Body height 2022-10-20 18:56:00 160 cm [facility] Body weight 2022-10-20 18:56:00 109.498 kg [facility] BMI 2022-10-20 18:56:00 42.76 kg/m2 [facility] Oxygen saturation in Arterial blood by Pulse oximetry 2022-10-20 18:56:00 96 /min [facility] height 2022-05-11 14:30:00 63 [in_i] Commo n [facility] weight 2022-05-11 14:30:00 227.2 [lb_av] Co mmon [facility] temperature 2022-05-11 14:30:00 97.4 [degF] Com mon [facility] bmi 2022-05-11 14:30:00 40.24 kg/m2 Comm on [facility] oximetry 2022-05-11 14:30:00 98 % Commo n [facility] respiratory rate 2022-05-11 14:30:00 18 /min Common [facility] blood pressure systolic 2022-05-11 14:30:00 135 mm[Hg] [facility] blood pressure diastolic 2022-05-11 14:30:00 76 mm[Hg] [facility] Systolic blood pressure 2022-03-21 21:28:00 127 mm[Hg] [facility] Diastolic blood pressure 2022-03-21 21:28:00 76 mm[Hg] [facility] Heart rate 2022-03-21 21:28:00 66 /min [facility] Body temperature 2022-03-21 21:28:00 36.67 Yadi [facility] Body height 2022-03-21 21:28:00 160 cm [facility] Body weight 2022-03-21 21:28:00 106.731 kg [facility] BMI 2022-03-21 21:28:00 41.68 kg/m2 [facility] height 2022-02-08 10:50:00 63 [in_i] Commo n [facility] weight 2022-02-08 10:50:00 230 [lb_av] Comm on [facility] temperature 2022-02-08 10:50:00 98 [degF] Comm on [facility] bmi 2022-02-08 10:50:00 40.74 kg/m2 Comm on [facility] blood pressure systolic 2022-02-08 10:50:00 154 mm[Hg] [facility] blood pressure diastolic 2022-02-08 10:50:00 87 mm[Hg] [facility] height 2021-07-27 08:10:00 63 [in_i] Commo n [facility] weight 2021-07-27 08:10:00 229 [lb_av] Comm on [facility] temperature 2021-07-27 08:10:00 98 [degF] Comm on [facility] bmi 2021-07-27 08:10:00 40.56 kg/m2 Comm on [facility] blood pressure systolic 2021-07-27 08:10:00 129 mm[Hg] [facility] blood pressure diastolic 2021-07-27 08:10:00 75 mm[Hg] [facility] Procedures Procedure Date / Time Performed Performing Clinician Source POCT URINALYSIS 2024-08-16 00:00:00 [facility] 2024-05-31 21:19:00 Lianne Bryan [facility] POCT MOLECULAR FLU 2024-05-31 21:14:00 Yann Nation [facility] POCT MOLECULAR STREP 2024-05-31 21:13:00 Lili Nation [facility] POCT SARS-COV-2 ANTIGEN (BINAX NOW) 2024-02-13 23:08:00 Lianne Bryan [facility] POCT MOLECULAR STREP 2024-02-13 22:44:00 Unknown, Atte nding [facility] REFERRAL- REQUEST/RESPONSE 2023-10-02 06:01:00 Doctor Unassigned, [place] [facility] MAGNESIUM 2023-09-21 10:15:00 Cedric Buck [facility] BASIC METABOLIC PANEL (NA, K, CL, CO2, GLUCOSE, BUN, CREATININE, CA) 2023-09-21 10:15:00 Delmis James [facility] CBC WITHOUT DIFF 2023-09-21 10:15:00 Cedric Buck [facility] N-TERMINAL PRO-BNP 2023-09-21 10:15:00 Delmis James [facility] TRANSTHORACIC ECHO (TTE) COMPLETE W/ CONTRAST 2023-09-20 16:18:00 Cedric Buck [facility] PHOSPHORUS 2023-09-20 10:31:00 Cedric Buck [facility] MAGNESIUM 2023-09-20 10:31:00 [facility] 2023-09-20 10:31:00 Heber [facility] BASIC METABOLIC PANEL (NA, K, CL, CO2, GLUCOSE, BUN, CREATININE, CA) 2023-09-20 10:31:00 Heber [facility] N-TERMINAL PRO-BNP 2023-09-20 10:31:00 Heber [facility] IRON PANEL 2023-09-20 10:30:00 Heber [facility] RAPID INFLUENZA A/B 2023-09-19 23:43:00 Israel Holland [facility] COVID-19 (ID NOW RAPID TESTING) 2023-09-19 23:43:00 Casimiro Holland [facility] CT CHEST PULMONARY ANGIOGRAM 2023-09-19 23:41:17 Skyler [facility] URINALYSIS 2023-09-19 22:17:00 Casimiro Holland [facility] HB ECG ROUTINE & RHYTHM STRIP 2023-09-19 22:12:27 Skyler [facility] XR CHEST 1 VW 2023-09-19 21:57:40 Casimiro [facility] LIPASE 2023-09-19 21:42:00 Casimiro Holland [facility] TROPONIN I 2023-09-19 21:42:00 [facility] COMP. METABOLIC PANEL (60216) 2023-09-19 21:42:00 Casimiro Holland [facility] CBC WITH DIFF 2023-09-19 21:42:00 Skyler [facility] N-TERMINAL PRO-BNP 2023-09-19 21:42:00 Skyler [facility] NOTICE OF PRIVACY PRACTICES 2023-09-19 21:06:11 Doctor Unassigned, [place] [facility] CONSENT/REFUSAL FOR DIAGNOSIS AND TREATMENT 2023-09-19 21:00:04 Doctor Unassigned, [place] [facility] ASSIGNMENT OF BENEFITS 2023-08-01 23:26:18 Docto r Unassigned, [place] [facility] INSURANCE CORRESPONDENCE 2022-12-07 05:01:00 Doc tor Unassigned, [place] [facility] LIPASE 2022-12-04 23:34:00 [facility] 2022-12-04 23:34:00 Allyssa Gnozales [facility] COMP. METABOLIC PANEL ([id number]) 2022-12-04 23:34:00 Allyssa Gonzales [facility] TOTAL BETA HCG ASSAY 2022-12-04 23:34:00 Beck Donato i [facility] CBC WITH DIFF 2022-12-04 23:34:00 Allyssa Gonzales U [facility] URINALYSIS 2022-12-04 23:34:00 Allyssa Gonzales [facility] RAPID INFLUENZA A/B 2022-12-04 23:34:00 Fredis Gonzales [facility] COVID-19 (ID NOW RAPID TESTING) 2022-12-04 23:34:00 Allyssa Gonzales [facility] CONSENT/REFUSAL FOR DIAGNOSIS AND TREATMENT 2022-12-04 22:45:24 Doctor Unassigned, [place] [facility] PATIENT FINANCIAL POLICY 2022-11-30 18:30:57 Doctor Unassigned, [place] [facility] EXTERNAL PROVIDER RECORDS 2022-05-19 05:01:00 Do ctor Unassigned, [place] [facility] EXTERNAL PROVIDER RECORDS 2022-05-09 05:01:00 Do ctor Unassigned, [place] [facility] EXTERNAL MAMMOGRAM 2022-05-06 13:05:00 Beatrice Harris [facility] HIGH RISK HPV-THIN PREP 2022-03-21 21:39:00 Glory Harris [facility] PAP SMEAR-LIQUID BASED-CP 2022-03-21 21:39:00 Glory Tenorio [facility] Encounters Start Date/Time End Date/Time Encounter Type Admission Type Attending Clinicians Care Facility Care Department Encounter ID Source 2024-10-09 11:50:00 Outpatient Catrina Arias [facility] [id number] [facility] 2024-08-29 08:59:00 Outpatient Catrina Arias [facility] [id number] [facility] 2024-03-20 09:55:00 Outpatient Catrina Arias [facility] [id number] [facility] 2023-11-22 09:24:00 Outpatient Catrina Arias [facility] [id number] [facility] 2023-11-09 14:56:00 Outpatient Catrina Arias [facility] [id number] [facility] 2023-10-18 13:40:00 Outpatient Jefferson, Kaylen [facility]LML[facility] [id number] [facility] 2023-09-13 13:48:00 Outpatient Jefferson, Kaylen [facility] [id number] [facility] 2023-08-29 08:14:00 Outpatient Jefferson, Kaylen [facility] [id number] [facility] 2022-08-11 16:22:00 Outpatient Jefferson, Kaylen [facility] [id number] [facility] 2022-05-10 11:55:00 Outpatient Jefferson, Kaylen [facility] ST[facility] [id number] [facility] 2021-09-22 13:37:51 Outpatient Jefferson, Kaylen [facility] [id number] [facility] 2021-09-22 13:34:11 Outpatient Jefferson, Kaylen STL[facility] ST[facility] [id number] [facility] 2021-09-22 13:34:04 Outpatient Jefferson, Kaylen [facility]C ST[facility] [id number] [facility] 2021-09-22 13:09:22 Outpatient Kaylen Jefferson ST[facility] [id number] [facility] 2021-09-22 12:39:29 Outpatient Kaylen Jefferson STLU [facility] [id number] [facility] 2021-09-22 12:15:47 Outpatient Kaylen Jefferson [facility] [id number] [facility] 2021-09-22 12:14:55 Outpatient Shanita Ahmadi [facility] [id number] [facility] 2021-09-22 12:03:56 Outpatient STYOLIS [facility] [id number] [facility] 2021-09-22 11:50:51 Outpatient Barb Barton [facility] [id number] [facility] 2021-09-22 11:32:57 Outpatient Barb Barton [facility] [id number] [facility] 2021-09-22 11:31:10 Outpatient Barb Barton [facility] [id number] [facility] 2021-09-22 11:14:06 Outpatient Barb Barton [facility] [id number] [facility] 2021-09-22 11:12:45 Outpatient Barb Barton [facility] [id number] [facility] 2024-10-17 11:00:00 2024-10-17 11:00:00 Outpatient MORA THAKUR MARISOL [facility] [id number] [facility] 2024-08-19 00:00:00 2024-09-21 18:16:43 Patient Secure Msg Doctor Unassigned, [place] Doctor Unassigned, [place] [facility] BUILD[facility] 1.2.840.114 350.1.13.10 4.2.7.2.686 [id number] [facility] 2024-08-29 00:00:00 2024-08-29 19:16:10 Telephone Lili Nationnaheedmayra [facility] ANU?[facility] BU[facility] 1.2.840.114 350.1.13.10 4.2.7.2.686 [id number] [facility] 2024-08-29 00:00:00 2024-08-29 00:00:00 (ESTPT) Real d Patient [facility] [id number] [facility] 2024-08-18 00:00:00 2024-08-18 20:27:37 Telephone Jose Alisa Garcia, Alisa [facility] ANU?[facility] 1.2.840.114 350.1.13.10 4.2.7.2.686 [id number] [facility] 2024-08-16 18:20:00 2024-08-16 19:09:22 Outpatient R YANN NATION [facility] [id number] [facility] 2024-08-16 18:20:00 2024-08-16 19:09:22 Urgent Care Yann Nation Unknown, Attending [facility] 1.2.840.114 350.1.13.10 4.2.7.2.686 [id number] [facility] 2024-08-08 00:00:00 2024-08-08 00:00:00 (TEL) [facility] [id number] [facility] 2024-05-31 15:20:00 2024-05-31 16:39:34 Outpatient R YANN NATION [facility] [id number] [facility] 2024-05-31 15:20:00 2024-05-31 16:39:34 Urgent Care Yann Nation Unknown, Attending [facility] 1.2.840.114 350.1.13.10 4.2.7.2.686 [id number] [facility] 2024-05-10 00:00:00 2024-05-10 00:00:00 (TEL) [facility]C [facility] [id number] [facility] 2024-04-07 00:00:00 2024-04-07 00:00:00 (WEB) STLMLC ST[facility] [id number] [facility] 2024-03-29 00:00:00 2024-03-29 00:00:00 (WEB) [facility]LMLC [facility] [id number] [facility] 2024-03-25 00:00:00 2024-03-25 00:00:00 OFFICE VISIT ESTAB PT LEVEL 4 STL[facility]C [facility] [id number] [facility] 2024-03-13 00:00:00 2024-03-13 00:00:00 (TEL) [facility] [id number] [facility] 2024-02-13 17:20:00 2024-02-13 17:40:00 Urgent Care Lianne Bryan Unknown, Attending [facility] 1.2.840.114 350.1.13.10 4.2.7.2.686 [id number] [facility] 2024-02-13 17:20:00 2024-02-13 17:20:00 Outpatient LIANNE DEL REAL [facility] [id number] [facility] 2024-01-24 13:20:00 2024-01-24 13:20:00 Outpatient LAKIA PERDOMO [facility] [id number] [facility] 2023-12-06 00:00:00 2023-12-06 00:00:00 OFFICE VISIT ESTAB PT LEVEL 4 [facility] [id number] [facility] 2023-11-20 18:19:39 2023-11-20 23:59:00 Outpatient R YANN NATION [facility] [id number] [facility] 2023-11-08 08:30:00 2023-11-08 09:00:00 Office Visit Carolina Rekha [facility] 1.840.114 350.1.13.10 4.2.7.2.686 [id number] [facility] 2023-11-08 08:30:00 2023-11-08 08:30:00 Outpatient R CAROLINA REKHA [facility] [id number] [facility] 2023-11-07 00:00:00 2023-11-07 00:00:00 (TEL) STLMLC ST[facility] [id number] [facility] 2023-11-01 00:00:00 2023-11-01 00:00:00 (TEL) STLMLC [facility] [id number] [facility] 2023-10-26 15:20:00 2023-10-26 15:38:34 [facility]..840.114 350.1.13.10 4.2.7.2.686 [id number] [facility] 2023-10-26 15:20:00 2023-10-26 15:38:34 [id number] 2023-10-22 00:00:00 2023-10-22 00:00:00 Refill Dixon [facility] 1..840.114 350.1.13.10 4.2.7.2.686 [id number] [facility] 2023-10-18 00:00:00 2023-10-18 00:00:00 (TEL) STLMLC ST[facility] [id number] [facility] 2023-10-13 00:00:00 2023-10-13 00:00:00 OFFICE VISIT NEW PT LEVEL 4 STLMLC [facility] [id number] [facility] 2023-10-12 11:30:00 2023-10-12 11:58:42 Office Visit Marisa Delgadosol [facility] 1.840.114 350.1.13.10 4.2.7.2.686 [id number] [facility] 2023-10-12 11:30:00 2023-10-12 11:58:42 Outpatient R JAYNA Dominguez, MORA JAYNA S, MORA [facility] [id number] [facility] 2023-10-10 00:00:00 2023-10-10 00:00:00 (TEL) STLMLC ST[facility] [id number] [facility] 2023-10-05 00:00:00 2023-10-05 00:00:00 Letter (Out) Faculty, Pulmonary [facility] MEDICAL OFFICE BUILDING 1..840.114 350.1.13.10 4.2.7.2.686 [id number] [facility] 2023-10-05 00:00:00 2023-10-05 00:00:00 [facility]phone [facility] N[facility] 1..840.114 350.1.13.10 4.2.7.2.686 [id number] [facility] 2023-10-04 00:00:00 2023-10-04 00:00:00 [facility] 1.2840.114 350.1.13.10 4.2.7.2.686 [id number] [facility] 2023-10-03 10:30:00 2023-10-03 10:45:00 [employer] Serv[employer] Visit Corie, Alyssa Sleep Lab Parag Ballard [facility] 1.2840.114 350.1.13.10 4.2.7.2.686 [id number] [facility] 2023-10-03 10:30:00 2023-10-03 10:30:00 Outpatient R PARAG BALLARD STRAHIL [facility] [id number] [facility] 2023-10-03 00:00:00 2023-10-03 00:00:00 Patient Secure Msg Doctor Unassigned, [place] [facility] 1.20.114 350.1.13.10 4.2.7.2.686 [id number] [facility] 2023-10-02 00:00:00 2023-10-02 00:00:00 Telephone Lakia Metcalf [facility] PROFESSIO [facility] 1.2840.114 350.1.13.10 4.2.7.2.686 [id number] [facility] 2023-10-02 00:00:00 2023-10-02 00:00:00 Orders Only Doctor Unassigned, [place] [facility] 1.2840.114 350.1.13.10 4.2.7.2.686 [id number] [facility] 2023-09-28 00:00:00 2023-09-28 00:00:00 (TEL) [facility] [id number] [facility] 2023-09-27 00:00:00 2023-09-27 00:00:00 (HOSP F/U) Hospital Follow Up [facility] [id number] [facility] 2023-09-27 00:00:00 2023-09-27 00:00:00 [facility] 1.2.840.114 350.1.13.10 4.2.7.2.686 [id number] [facility] 2023-09-26 14:00:00 2023-09-26 14:15:00 [employer] Visit 2, Adc Lab [facility] 1.2.840.114 350.1.13.10 4.2.7.2.686 [id number] [facility] 2023-09-26 13:00:00 2023-09-26 13:45:22 Outpatient R DIXON [facility] [id number] [facility] 2023-09-26 13:00:00 2023-09-26 13:45:22 Office Visit Dixon [facility] 1.2.840.114 350.1.13.10 4.2.7.2.686 [id number] [facility] 2023-09-25 00:00:00 2023-09-25 00:00:00 (TEL) [facility] [id number] [facility] 2023-09-25 00:00:00 2023-09-25 00:00:00 Transition of Care Marialuisa Francis 1.2.840.114 350.1.13.10 4.2.7.2.686 [id number] [facility] [facility] 00:00:00 2023-09-22 00:00:00 Transition of Care Marialuisa Francis 1.2.840.114 350.1.13.10 4.2.7.2.686 [id number] [facility] 2023-09-19 15:33:00 2023-09-21 14:56:00 Inpatient X CEDRIC BUKC [facility] KELSIE [id number] [facility] 2023-09-19 15:33:00 2023-09-21 14:56:00 Hospital Encounter Casimiro Holland Jelani [facility] 1.2.840.114 350.1.13.10 4.2.7.2.686 [id number] [facility] 2023-09-21 00:00:00 2023-09-21 00:00:00 Telephone Dixon Lakia [facility] PROFESSIO [facility] 1.2.840.114 350.1.13.10 4.2.7.2.686 [id number] [facility] 2023-09-18 00:00:00 2023-09-18 00:00:00 Nurse Triage SeamanBeatricealmalaura [facility] 1.2.840.114 350.1.13.10 4.2.7.2.686 [id number] [facility] 2023-09-15 00:00:00 2023-09-15 00:00:00 (WEB) STLC [facility] [id number] [facility] 2023-09-14 00:00:00 2023-09-14 00:00:00 OFFICE VISIT ESTAB PT LEVEL 4 STLMLC STLC [id number] [facility] 2023-09-13 00:00:00 2023-09-13 00:00:00 (WEB) STLMLC STLC [id number] [facility] 2023-09-04 00:00:00 2023-09-04 00:00:00 (WEB) STLMLC STLC [id number] [facility] 2023-08-29 00:00:00 2023-08-29 00:00:00 (WELLNESS) Wellness Visit STLC STLC [id number] [facility] 2023-08-29 00:00:00 2023-08-29 00:00:00 (TEL) [facility] [id number] [facility] 2023-08-01 17:20:00 2023-08-01 17:59:59 Outpatient R JIHAN GUIDO [facility] [id number] [facility] 2023-08-01 17:20:00 2023-08-01 17:59:59 Urgent Care Jihan Guido Unknown, Attending [facility] 1.840.114 350.1.13.10 4.2.7.2.686 [id number] [facility] 2023-08-01 00:00:00 2023-08-01 00:00:00 Orders Only Doctor Unassigned, Big Arm [facility] 1.84.114 350.1.13.10 4.2.7.2.686 [id number] [facility] 2023-05-22 00:00:00 2023-05-22 00:00:00 (TEL) [facility] [id number] [facility] 2023-05-17 00:00:00 2023-05-17 00:00:00 OFFICE VISIT ESTAB PT LEVEL 4 [facility] [id number] [facility] 2023-03-21 15:00:00 2023-03-21 15:00:00 Outpatient R GLORY HARRIS CHERYAL [facility] [id number] [facility] 2023-03-14 00:00:00 2023-03-14 00:00:00 Pre Visit Outreach Sarah Dhaliwal 1.840.114 350.1.13.10 4.2.7.2.686 [id number] [facility] 2023-02-10 00:00:00 2023-02-10 00:00:00 (TEL) STLC STLC [id number] [facility] 2023-01-10 00:00:00 2023-01-10 00:00:00 Patient Secure Msg Doctor Unassigned, [facility] 1.2840.114 350.1.13.10 4.2.7.2.686 [id number] [facility] 2023-01-09 00:00:00 2023-01-09 00:00:00 Patient Secure Msg Holloway-Eliseo s, [facility] 1.20.114 350.1.13.10 4.2.7.2.686 [id number] [facility] 2023-01-06 12:15:00 2023-01-06 12:30:00 Electronic Video Games Servicer Visit Lab, Ang - Db Holloway-Eliseo s, [facility] ANU?[facility] 1.84.114 350.1.13.10 4.2.7.2.686 [id number] [facility] 2023-01-06 12:15:00 2023-01-06 12:15:00 Outpatient R HOLLOWAY-ELISEO S, MORA HOLLOWAY-ELISEO S, [facility] [id number] [facility] 2023-01-04 00:00:00 2023-01-04 00:00:00 Telephone Holloway-Eliseo s [facility] 1.20.114 350.1.13.10 4.2.7.2.686 [id number] [facility] 2023-01-03 00:00:00 2023-01-03 00:00:00 Patient Secure Msg Holloway-Eliseo s, [facility] 1.20.114 350.1.13.10 4.2.7.2.686 [id number] [facility] 2023-01-02 12:30:00 2023-01-02 12:45:00 Electronic Video Games Servicer Visit Lab, Glory Quarles [facility] 1.84114 350.1.13.10 4.2.7.2.686 [id number] [facility] 2023-01-02 12:30:00 2023-01-02 12:30:00 Outpatient R INGRIDDAIANAJEREMYGLORY [facility] [id number] [facility] 2022-12-19 12:15:00 2022-12-19 12:30:00 [employer] Video [employer] Servicer Visit Lab, Aguila Praveen Holloway-Eliseo s, [facility] 1.114 350.1.13.10 4.2.7.2.686 [id number] [facility] 2022-12-19 12:15:00 2022-12-19 12:15:00 Outpatient R HOLLOWAY-ELISEO S, MORA HOLLOWAY-ELISEO S, MORA [facility] [id number] [facility] 2022-12-19 00:00:00 2022-12-19 00:00:00 Telephone Holloway-Eliseo s, Mora [facility] 1.114 350.1.13.10 4.2.7.2.686 [id number] [facility] 2022-12-09 12:15:00 2022-12-09 12:30:00 Electronic Video [employer] Servicer Visit Lab, Aguila Db Holloway-Eliseo s, [facility] 1.84114 350.1.13.10 4.2.7.2.686 [id number] [facility] 2022-12-09 12:15:00 2022-12-09 12:15:00 Outpatient R HOLLOWAYHAYLEE Carol, MORA HOLLOWAY-ELISEO S, MORA [facility] [id number] [facility] 2022-12-08 15:15:00 2022-12-08 15:47:29 Outpatient R JAYNA S, MORA HOLLOWAY-ELISEO S, MORA [facility] [id number] [facility] 2022-12-08 15:15:00 2022-12-08 15:47:29 Office Visit Jayna dominguez Mora [facility] 1..114 350.1.13.10 4.2.7.2.686 [id number] [facility] 2022-12-07 00:00:00 2022-12-07 00:00:00 Orders Only Doctor Unassigned, Big Arm [facility] 1.0.114 350.1.13.10 4.2.7.2.686 [id number] [facility] 2022-12-06 15:30:00 2022-12-06 15:30:00 Outpatient R GLORY HARRIS CHERYAL [facility] [id number] [facility] 2022-12-06 00:00:00 2022-12-06 00:00:00 (TEL) STLMLC STLC [id number] [facility] 2022-12-04 17:57:00 2022-12-05 01:24:00 Emergency X DAMIEN DONATO [facility] ERT [id number] [facility] 2022-12-04 17:57:00 2022-12-05 01:24:00 Emergency Allyssa Gonzales Wakili S [facility] 1.0.114 350.1.13.10 4.2.7.2.686 [id number] [facility] 2022-11-30 13:20:00 2022-11-30 14:13:12 Outpatient R NATHALY GUILLEN [facility] [id number] [facility] 2022-11-30 13:20:00 2022-11-30 14:13:12 Urgent Care WilmerNathaly Unknown, Attending [facility] 1.2.840.114 350.1.13.10 4.2.7.2.686 [id number] [facility] 2022-11-30 00:00:00 2022-11-30 00:00:00 Orders Only Doctor Unassigned, Big Arm [facility] 1.2.840.114 350.1.13.10 4.2.7.2.686 [id number] [facility] 2022-11-30 00:00:00 2022-11-30 00:00:00 Letter (Out) WilmerAllieNathaly [facility] 1..840.114 350.1.13.10 4.2.7.2.686 [id number] [facility] 2022-11-14 00:00:00 2022-11-14 00:00:00 OFFICE VISIT ESTAB PT LEVEL 4 STLMLC STLC [id number] [facility] 2022-11-04 00:00:00 2022-11-04 00:00:00 (TEL) STLC STLMLC [id number] [facility] 2022-10-20 12:20:00 2022-10-20 12:40:00 Urgent Care Jihan Guido Unknown, Attending [facility] 1.2.840.114 350.1.13.10 4.2.7.2.686 [id number] [facility] 2022-10-20 12:20:00 2022-10-20 12:20:00 Outpatient R FRANCISCOCONNIEJIHAN Valdez [facility] [id number] [facility] 2022-08-15 00:00:00 2022-08-15 00:00:00 (TEL) STLMLC STLMLC [id number] [facility] 2022-05-19 00:00:00 2022-05-19 00:00:00 Orders Only Doctor Unassigned, Big Arm [facility] 1.2840.114 350.1.13.10 4.2.7.2.686 [id number] [id number] [facility] 2022-05-11 00:00:00 2022-05-11 00:00:00 PREV VISIT EST AGE 40-64 STLMLC STLMLC [id number] [facility] 2022-05-11 00:00:00 2022-05-11 00:00:00 Abstract Ronnie [facility] 1.2.840.114 350.1.13.10 4.2.7.2.686 [id number] [facility] 2022-05-09 00:00:00 2022-05-09 00:00:00 Orders Only Doctor Unassigned, Big Arm [facility] 1.2.840.114 350.1.13.10 4.2.7.2.686 [id number] [facility] 2022-04-13 00:00:00 2022-04-13 00:00:00 Telephone Ronnie [facility] 1.2.840.114 350.1.13.10 4.2.7.2.686 [id number] [facility] 2022-03-25 00:00:00 2022-03-25 00:00:00 (TEL) STLMLC STLMLC [id number] [facility] 2022-03-21 16:00:00 2022-03-21 16:44:39 Outpatient R GLORY HARRIS CHERYAL [facility] [id number] [facility] 2022-03-21 16:00:00 2022-03-21 16:44:39 Outpatient R GLORY HARRIS CHERYAL [facility] [id number] [facility] 2022-03-21 16:00:00 2022-03-21 16:44:39 Office Visit IngridGlory stewart [facility] 1..840.114 350.1.13.10 4.2.7.2.686 [id number] [facility] 2022-03-21 00:00:00 2022-03-21 00:00:00 Orders Only Doctor Unassigned, Big Arm [facility] 1.2.840.114 350.1.13.10 4.2.7.2.686 [id number] [facility] 2022-03-14 00:00:00 2022-03-14 00:00:00 (TEL) STLC STLC [id number] [facility] 2022-02-14 00:00:00 2022-02-14 00:00:00 (TEL) STLC STLMLC [id number] [facility] 2022-02-08 00:00:00 2022-02-08 00:00:00 OFFICE VISIT ESTAB PT LEVEL 4 STLC STLC [id number] [facility] 2022-01-11 00:00:00 2022-01-11 00:00:00 (TEL) STLC STLC [id number] [facility] 2021-09-09 13:00:00 2021-09-09 13:00:00 Outpatient EVER CASTRO [facility] [id number] [facility] 2021-09-02 00:00:00 2021-09-02 00:00:00 Pre Visit Outreach Sarah Rain 1.2.840.114 350.1.13.10 4.2.7.2.686 [id number] [facility] 2021-08-13 00:00:00 2021-08-13 00:00:00 Patient Secure Msg Doctor Unassigned, Big Arm [facility] 1.2.840.114 350.1.13.10 4.2.7.2.686 [id number] [facility] 2021-07-27 00:00:00 2021-07-27 00:00:00 OFFICE VISIT ESTAB PT LEVEL 4 STLMLC STLMLC [id number] [facility] 2021-06-16 00:00:00 2021-06-16 00:00:00 (TEL) STLMLC STLMLC [id number] [facility] 2021-04-19 00:00:00 2021-04-19 00:00:00 Outpatient STLMLC STLMLC [id number] [facility] 2021-04-08 00:00:00 2021-04-08 00:00:00 Outpatient STLMLC STLMLC [id number] [facility] 2021-04-08 00:00:00 2021-04-08 00:00:00 Outpatient STLMLC STLMLC [id number] [facility] 2021-03-30 00:00:00 2021-03-30 00:00:00 Outpatient STLMLC STLMLC [id number] [facility] 2021-03-30 00:00:00 2021-03-30 00:00:00 Outpatient STLMLC STLMLC [id number] [facility] 2021-03-29 00:00:00 2021-03-29 00:00:00 Outpatient STLMLC STLMLC [id number] [facility] 2021-01-02 16:00:00 2021-01-02 16:00:00 Outpatient MARIA D KOCH [facility] [id number] [facility] 2020-12-17 00:00:00 2020-12-17 00:00:00 Outpatient STLMLC STLMLC [id number] [facility] 2020-11-14 13:25:00 2020-11-14 13:25:00 Outpatient [facility] [id number] [facility] 2020-11-09 00:00:00 2020-11-09 00:00:00 Outpatient STLMLC STLMLC [id number] [facility] 2020-10-24 13:15:00 2020-10-24 13:15:00 Outpatient [facility] [id number] [facility] 2020-09-11 00:00:00 2020-09-11 00:00:00 Outpatient STLMLC STLMLC [id number] [facility] 2020-09-08 13:30:00 2020-09-08 13:30:00 Outpatient EVER CASTRO [facility] [id number] [facility] 2020-09-08 00:00:00 2020-09-08 00:00:00 Orders Only Doctor Unassigned, Big Arm [place] [address].2.840.114 350.1.13.10 4.2.7.2.686 [id number] 2020-09-08 00:00:00 2020-09-08 00:00:00 Orders Only Doctor Unassigned, Big Arm [place] [address].2.840.114 350.1.13.10 4.2.7.2.686 [id number] [facility] 2020-08-19 00:00:00 2020-08-19 00:00:00 Outpatient STLMLC STLMLC [id number] [facility] 2020-07-22 00:00:00 2020-07-22 00:00:00 Outpatient STLMLC STLMLC [id number] [facility] 2020-07-08 00:00:00 2020-07-08 00:00:00 Outpatient STLMLC STLMLC [id number] [facility] 2020-06-23 00:00:00 2020-06-23 00:00:00 Outpatient STLMLC STLMLC [id number] [facility] 2020-06-03 00:00:00 2020-06-03 00:00:00 Outpatient STLMLC STLMLC [id number] [facility] 2020-03-20 11:15:00 2020-03-20 11:15:00 [facility] [id number] [facility] 2020-03-20 09:45:00 2020-03-20 09:45:00 [facility] [id number] [facility] 2020-03-16 22:32:00 2020-03-16 22:32:[address] [facility] [address] [facility] [id number] [facility] 2020-03-10 15:20:00 2020-03-10 15:20:[address] [facility] [address] [facility] [id number] [facility] 2020-02-12 10:10:00 2020-02-12 10:10:00 Outpatient [facility] [id number] [facility] 2020-01-14 16:00:00 2020-01-14 16:00:00 [facility] [address] [facility] [id number] [facility] 2019-11-13 09:47:00 2019-11-13 09:47:[address] [facility] [address] [facility] [id number] [facility] 2019-08-23 15:15:00 2019-08-23 15:15:00 [facility] [facility] [address] [facility] [id number] [facility] 2019-05-27 14:45:00 2019-05-27 14:45:00 Out[facility] [id number] [facility] Results Test Description Test Time Test Comments Results Result Co mments Source POCT Urinalysis W Specific [id number] 01:00:00* Test Item Value Reference Range Interpretation Comme nts POCT U SP GRAV (test code = 3255) 1.015 mg/dl 1.005-1.025 POCT PH U (test code = 3254) 5 mg/dl 5-8 POCT U LEUK EST (test code = 3263) Negative Negative - Negative POCT U NIT (test code = 3262) Negative Negative - Negati ve POCT U PROT (test code = 3259) Trace Negative - Negative POCT U GLU (test code = 3256) Negative Negative - Negati ve POCT U KETONE (test code = 3258) Negative Negative - Negative POCT U UROBILI (test code = 3260) Negative 0.2-1 POCT U BILI (test code = 3261) Negative Negative - Negative POCT U BLD (test code = 3257) About 250 Negative - Negati ve POCT U COLOR (test code = 3266) Yellow POCT U APPEAR (test code = 3267) Clear Lab Interpretation (test cod e = 87914-3) Abnormal [facility] Molecular [id number] 21:26:19* Test Item Value Reference Range Interpretation Comme nts POCT Molecular FluA (test co de = 75581-9) Negative Negative POCT Molecular FluB (test co de = 90829-0) Negative Negative Lab Interpretation (test cod e = 72127-1) Normal [facility] MOLECULAR [id number] 21:20:45* Test Item Value Reference Range Interpretation Comme nts POCT Molecular Strep (test c ode = 08371-1) Negative Negative Lab Interpretation (test cod e = 29662-6) Normal [facility] Urinalysis W Specific [id number] 21:19:00* Test Item Value Reference Range Interpretation Comme nts POCT U SP GRAV (test code = 3255) 1.020 mg/dl 1.005-1.025 POCT PH U (test code = 3254) 5 mg/dl 5-8 POCT U LEUK EST (test code = 3263) Trace Negative - Negative POCT U NIT (test code = 3262) negative Negative - Negati ve POCT U PROT (test code = 3259) trace Negative - Negative POCT U GLU (test code = 3256) negative Negative - Negati ve POCT U KETONE (test code = 3258) negative Negative - Negative POCT U UROBILI (test code = 3260) negative 0.2-1 POCT U BILI (test code = 3261) negative Negative - Negative POCT U BLD (test code = 3257) about 50 Negative - Negati ve POCT U COLOR (test code = 3266) yellow POCT U APPEAR (test code = 3267) clear [facility] SARS-COV-2 ANTIGEN (BINAX NOW)2024-02-13 23:08:00* Test Item Value Reference Range Interpretation Comme nts POCT SARS-COV-2 ANTIGEN (keshav t code = 09425-1) Not Detected Not Detected On board controls acceptable with C Line (test code = 3574) Yes Lab Interpretation (test cod e = 15440-8) Normal [facility] MOLECULAR [id number] 22:52:34* Test Item Value Reference Range Interpretation Comme nts POCT Molecular Strep (test c ode = 55530-5) Negative Negative Lab Interpretation (test cod e = 27151-6) Normal [facility] ([facility]E)2023-09-21 03:08:51* Test Item Value Reference Range Interpretation Comme nts Height (test code = 1339067429) 63 in Weight (test code = 0331996776) 259 lbs Systolic BP (test code = 8026567261) 127 mmHg Diastolic BP (test code = 2876580902) 58 mmHg Heart Rate (test code = 8124074933) 80 bpm BSA (test code = 5135981878) 2.16 m2 Ao root diam (test code = 7756995688) 3.10 cm Aortic root (test code = 9110180532) 3.1 cm Ao root annulus (test code = 2639127428) 3.1 cm LVOT diameter (test code = 4653697927) 1.85 cm LVOT area (test code = 7347453719) 2.70 cm2 LVIDD (test code = 7592519796) 5.10 cm Left Ventricular End Diastolic Volume by Teichholz Method (test code = 3340031) 122.5 mL IVS (test code = 4734900585) 0.94 cm Interventricular Septum Diastolic Thickness by 2D (test code = 4409728) 0.94 cm LVPWD (test code = 6727964444) 0.96 cm PW (test code = 5177896532) 0.96 cm 0.6-1.1 EF(Teich) (test code = 8378609019) 60.50 % LVIDS (test code = 7368353943) 3.40 cm Left Ventricular End Systolic Volume by Teichholz Method (test code = 4123517) 48.4 mL FS (test code = 7097343682) 33 % EF - 2D (test code = 94965754) 60.50 % LA size (test code = 3383869977) 4.5 cm TR Peak Meenakshi (test code = 5706975003) 293.3 cm/s Triscuspid Valve Regurgitation Peak Gradient (test code = 7692868597) 34.4 mmHg Pulmonic Regurgitant End Max Velocity (test code = 0328397980) 141.2 cm/s LAV(MOD-sp4) (test code = 3968854764) 78.80 mL E wave decelartion time (test code = 4554547795) 0.20 s MV stenosis pressure 1/2 time (test code = 8599743777) 58.8 ms MV Peak A Meenakshi (test code = 5505776539) 116.8 cm/s MV Peak E Meenakshi (test code = 7095985974) 135.1 cm/s E/A ratio (test code = 1128137905) 1.16 ratio MV Prop V (test code = 6368981233) 43.80 cm/s MV E/e' septal (test code = 6935879812) 14.4 cm/s Tapse (test code = 0570160830) 2.43 cm LVOT stroke volume (test code = 1170643195) 80.90 cm3 LVOT peak meenakshi (test code = 1410136015) 118.3 cm/s LVOT mn grad (test code = 1720375781) 3.2 mmHg AV LVOT peak gradient (test code = 3614568058) 5.6 mmHg LVOT peak VTI (test code = 3775889862) 30.1 cm LV V1 mean (test code = 9821679912) 85.50 cm/s Aortic valve mean velocity (test code = 1360396377) 141.5 cm/s Ao peak meenakshi (test code = 7206106753) 190.7 cm/s Ao VTI (test code = 7473551460) 49.8 cm AV area by cont VTI (test code = 0106719346) 1.6 cm2 AV area peak meenakshi (test code = 2369750301) 1.7 cm2 Ao max PG (test code = 2395451807) 14.50 mm[Hg] AV peak gradient (test code = 9590779867) 14.5 mmHg AV valve area (test code = 5192640244) 1.62 cm2 AV mean gradient (test code = 4374797139) 8.5 mmHg Radiology Study observation (narrative) (test code = 78397-4) ROSIO (test code = ROSIO) ?Left?Ventricle: Left ventricle size is normal. Normal wall thickness. Normal wall motion. Normal systolic function with a visually estimated EF of 55 - 60%. Diastolic dysfunction. ?Tricuspid?Valve: Mild transvalvular regurgitation. Right ventricular systolic pressure is 30-35 mmHg + RAP. Left VentricleLeft ventricle size is normal. Normal wall thickness. Normal wall motion. Normal systolic function with a visually estimated EF of 55 - 60%. Diastolic dysfunction.Right VentricleRight ventricle size is normal. Normal systolic function.Left AtriumLeft atrium size is normal.Right AtriumRight atrium size is normal.Mitral ValveMitral valve structure is grossly normal. Trace transvalvular regurgitation.Tricusp id ValveTricuspid valve structure is grossly normal. Mild transvalvular regurgitation. Right ventricular systolic pressure is 30-35 mmHg + RAP.Aortic ValveAortic valve opens well.Pulmonic ValveNot well visualized.Ascending AortaNormal sized aortic root.PericardiumNo pericardial effusion.Study DetailsStudy quality experienced technical difficulty. A complete echocardiogram was performed using 2D, color flow Doppler and spectral Doppler. 5 mL of Lumason ultrasound enhancing agent used. [facility] [id number] 00:57:31EXAM: CT CHEST PULMONARY ANGIOGRAM CLINICAL INDICATION: 53 years old Female with Pulmonary embolism(PE)suspected, unknown D-dimer shortness of breath, SPO2 93% Comparison: ?None TECHNIQUE: Volumetric helical CT angiogram was performed of the chest (lungapices to bases) with IV contrast. Images were reconstructed at 1.25 mmslice thickness. Axial MIPs, as well as coronal and sagittal MPRs weregenerated and reviewed. FINDINGS: Devices: None HEART AND GREAT VESSELS: The opacification of the pulmonary vasculature isappropriate. No filling defects are seen through the level of the segmentalpulmonary arteries. The pulmonary trunk is normal in caliber. The thoracic aorta is normal in caliber with ?no atheroscleroticcalcifications. There are no calcifications of the coronary vessels. The heart ismildly enlarged. No pericardial abnormalities are identified.The RV to LV is normal. MEDIASTINUM AND LOWER NECK: No central airway lesions are detected. Theesophagus is within normal limits. The included thyroid gland appearsnormal. LYMPH NODES: Scattered small lymph nodes in both sides of the mediastinumand hilar regions. No evidence of intrathoracic lymphadenopathy. LUNGS AND PLEURA: Mosaic attenuation of the lungs can be due to poorinspiratory effort or air trapping. Bilateral perihilar haziness withprominent central interstitial markings is noted. Few areas of pleuralseptal thickening is noted in the right upper lobe, and bibasilar lungfields. An oblique linear opacity in the right lower lobe likely representsband atelectasis. No suspicious nodules. No pleural abnormality detected. VISUALIZED UPPER ABDOMEN: Gallbladder is surgically absent. CBD is dilatedand measures 8 mm and likelyreflects reservoir phenomena from priorcholecystectomy. The liver is enlarged and measures 19 cmanteroposteriorly. Included solid organs and hollow viscus appear withinnormal limits. OSSEOUS STRUCTURES AND SOFT TISSUES: No focal osseous lesions are detected.The soft tissues appear normal. Anterior bridging osteophytes of thethoracic vertebrae are suggestive of DISH.[facility] 1 [id number] 22:02:07EXAM: XR CHEST 1 09/19/2023 3:56 PM HISTORY: 53 years-old Female with shortness of breath . TECHNIQUE: Portable AP view of the chest. COMPARISON: None. FINDINGS: Lines and tubes: None. Cardiomediastinal: The cardiac silhouette is upper normal in size.Pulmonary vasculature is mildly prominent. Lungs and pleura: Low lung volumes. Coarsening of the interstitial markingswith patchy peribronchial interstitial thickening and scatteredsubsegmental atelectasis could be related to mild interstitial angeli ma,bronchitis or viral pneumonitis. No consolidation, pneumothorax or frankpleural effusion. Included osseous structures show no acute abnormality. [facility] [id number] 00:00:00* Test Item Value Reference Range Interpretation Comme nts HEMOGLOBIN A1c (test code = 4548-4) 5.8 % See_Comment H [Automated Storage [email or web address]] The system which generated this result transmitted reference range: 4.2-5.6 %. The reference range was not used to interpret this result as normal/abnormal. Consult Notes Date/Time Note Provider Source 2023-09-20 08:13:58 Associated Order(s): CONSULT CARDIOLOGY [facility] Cardiology Consult PCP: Kaylen Jefferson Date of Service: 09/20/2023 CHIEF COMPLAINT/reason for consult: Heart failure HISTORY OF PRESENT ILLNESS This is a 53 years old female with past med history of hypertension, hyperlipidemia and morbid obesity. She came to [facility] due to progressive dyspnea exertion, leg edema and 30 pounds weight gain. Denies chest pain or orthopnea. Chest x-ray showed mild congestion. BNP was elevated. She was started on IV Lasix. PAST MEDICAL HISTORY Past Medical History: Diagnosis Date Depression High cholesterol Hypertension Other specified anemias 09/20/2023 S/P arthroscopic surgery of left knee Past Surgical History: Procedure Laterality Date CHOLECYSTECTOMY TUBAL LIGATION Family History Problem Relation Age of Onset Asthma Mother Breast Cancer Mother Depression Mother Hypertension Mother Osteoporosis Mother Depression Father Diabetes Father Heart Father Hypertension Father Neurological Father Arthritis Sister defects NoFHx Colon Cancer NoFHx Ovarian Cancer NoFHx Uterine Cancer NoFHx Cancer NoFHx Genetic NoFHx High cholesterol NoFHx Mental retardation NoFHx Psychiatry NoFHx Other - see comments NoFHx ALLERGIES No Known Allergies MEDICATIONS No current facility-administered medications on file prior to encounter. Current Outpatient Medications on File Prior to Encounter Medication Sig Dispense Refill dicyclomine 20 mg tablet Take 1 tablet by mouth every 6 (six) hours as needed for Abdominal pain. 20 tablet 0 ondansetron (ZOFRAN) 4 mg tablet Take 1 tablet by mouth every 8 (eight) hours as needed for Nausea and Vomiting (N/V). 12 tablet 0 diclofenac 75 mg EC tablet TAKE ONE (1) TABLET(S) BY MOUTH TWICE A DAY NEEDED FOR PAIN. ondansetron 4 mg disintegrating tablet 1 tablet on the tongue and allow to dissolve Orally TID for 5 days OZEMPIC 2 mg/dose (8 mg/3 mL) PnIj INJECT 2 MG SUBCUTANEOUSLY WEEKLY phentermine 37.5 mg tablet Take 1 tablet by mouth in the morning. proMETHazine 25 mg tablet Take 1 tablet by mouth every 4 (four) hours as needed for Nausea and Vomiting (N/V). 14 tablet 0 rosuvastatin 20 mg tablet 1 tablet in evening Orally Once a day for high cholesterol/triglycerides for 90 days SERTraline 100 mg tablet 2 tablet Orally Once a day for depression for 90 days cloNIDine 0.1 mg tablet Take 0.1 mg by mouth in the morning and 0.1 mg in the evening. enalapril 10 mg tablet Take by mouth daily. SOCIAL HISTORY Social History Socioeconomic History Marital status: Single Number of children: 3 Tobacco Use Smoking status: Never Passive exposure: Never Smokeless tobacco: Never Vaping Use Vaping Use: Never used Substance and Sexual Activity Alcohol use: No Alcohol/week: 0.0 standard drinks of alcohol Drug use: No Sexual activity: Yes Partners: Male control/protection: Surgical Other Topics Concern Blood Transfusions No Social History Narrative No domestic violence or abuse REVIEW OF SYSTEMS At least 10 systems reviewed, negative except as mentioned in HPI PHYSICAL EXAMINATION Vitals: 09/19/23 1928 09/19/23 2302 09/20/23 0349 09/20/23 0801 BP: 129/74 (!) 151/61 127/58 BP Location: Left arm Left arm Left arm Patient Position: Supine Sitting Supine Pulse: 70 66 80 Resp: 20 20 16 18 Temp: 36.4 ?C (97.5 ?F) 36.4 ?C (97.6 ?F) 36.4 ?C (97.6 ?F) TempSrc: Temporal Artery Temporal Artery Temporal Artery SpO2: 93% 93% 93% 90% Weight: 118 kg (260 lb 1.6 oz) 119 kg (262 lb 4.8 oz) Height: Constitutional: alert and oriented x 3 (person, place and date/time); no apparent distress, obese ENT: normocephalic atraumatic, supple, no lymphadenopathy, no bruits, no JVD Lungs: clear to auscultation bilaterally Cardiovascular: S1, S2 normal, regular; no murmurs, rubs or gallops GI: soft; non-tender; non-distended; normoactive bowel sounds : not examined Musculoskeletal: Extremities: no clubbing, cyanosis, + edema Skin: no rashes Neuro: no focal deficits LABS - reviewed pertinent labs as below: CBC BMP PT/INR WBC (10*3/?L) Date Value 09/19/2023 9.55 NA (mmol/L) Date Value 09/19/2023 138 No results found for: "PT" PLT (10*3/?L) Date Value 09/19/2023 264 K (mmol/L) Date Value 09/19/2023 4.1 No results found for: "PTINR" HGB (g/dL) Date Value 09/19/2023 9.5 (L) BUN (mg/dL) Date Value 09/19/2023 11 HCT (%) Date Value 09/19/2023 29.2 (L) CREATININE (mg/dL) Date Value 09/19/2023 0.70 LIPID PROFILE GLUCOSE (mg/dL) Date Value 09/19/2023 122 (H) No results found for: "CHOL" TSH No results found for: "LDL" No results found for: "TSH" CARDIAC ENZYMES No results found for: "HDL" No results found for: "CK" No results found for: "TRIG" LFTs No results found for: "CKMB" AST(SGOT) (U/L) Date Value 09/19/2023 30 TROPONIN I (ng/mL) Date Value 09/19/2023 0.001 ALTv (U/L) Date Value 09/19/2023 24 No results found for: "BNP" IMAGING - reviewed, pertinent results as below: Chest x-ray-mild congestion EKG: Normal sinus rhythm, left ventricle hypertrophy ASSESSMENT/PLAN Principal Problem: Shortness of breath Active Problems: Morbid obesity with body mass index of 40.0-49.9 Primary hypertension Other hyperlipidemia Chronic diastolic congestive heart failure Snores Other specified anemias Progressive dyspnea exertion, leg edema and a 30 pounds weight gain-likely multifactorial due to morbid obesity, possible sleep apnea and diastolic heart failure. BNP is elevated. Chest x-ray showed pulmonary congestion. Recommend aggressive diuresis with IV Lasix. Currently on 40 mg twice daily. Add spironolactone 25 mg daily. Consider outpatient initiation of SGLT2 inhibitor such as Jardiance. Echocardiogram to assess ejection fraction and hemodynamics. Discussed heavily on low-salt diet and lifestyle changes. Low salt diet. I/O. Daily weight. Fluid restriction. Keep K > 4 and Mg > 2. Snoring-recommend outpatient sleep study to assess obstructive sleep apnea. Hypertension-her blood pressure is controlled. Continue lisinopril and spironolactone. Hyperlipidemia-continue Crestor. Anemia-workup per primary team. Morbid obesity-recommend aggressive lifestyle changes including diet, exercise and weight loss. Thank you for allowing us to participate in the care of your patient. Please feel free to contact us for any questions or if we can be of further assistance. Lakia Metcalf MD, FACC, MONSE Fence Machine Operator Division of Cardiovascular Medicine [facility] - Health History and Physical Notes Date/Time Note Provider Source 2023-09-19 19:01:00 Medicine History & Physical Date of Service: 09/20/2023 Pt presents from: Home CC: Weight gain, dyspnea, swelling History of Present Illness: Mackenzie Whalen is a 53 year old female with a PMH of morbid obesity, hypertension, hyperlipidemia, anxiety who presented to the ED for the above symptoms. Patient describes a gradual increase in weight of 30 pounds over 16 days. She presented to the ER on September 04 for swelling and shortness of breath. She was started on Lasix, 20 mg, every other day. She states this has not alleviated her symptoms. Over this time she has developed bilateral leg swelling. She has dyspnea on minimal exertion. She is experiencing paroxysmal nocturnal dyspnea. She does not have any known cardiac history. She is a never smoker. She has risk factors of hypertension and hyperlipidemia. She has family history significant for heart disease in both parents and a sister. ROS: Pt denies fever / chills / nausea / vomiting / diarrhea / constipation / chest pain / SOB / cough / abdominal pain / dysuria / hematuria / melena / hematochezia / rashes / suicidal or homicidal ideation / All others negative Review of Hx/Meds: No current facility-administered medications on file prior to encounter. Current Outpatient Medications on File Prior to Encounter Medication Sig Dispense Refill dicyclomine 20 mg tablet Take 1 tablet by mouth every 6 (six) hours as needed for Abdominal pain. 20 tablet 0 ondansetron (ZOFRAN) 4 mg tablet Take 1 tablet by mouth every 8 (eight) hours as needed for Nausea and Vomiting (N/V). 12 tablet 0 diclofenac 75 mg EC tablet TAKE ONE (1) TABLET(S) BY MOUTH TWICE A DAY NEEDED FOR PAIN. ondansetron 4 mg disintegrating tablet 1 tablet on the tongue and allow to dissolve Orally TID for 5 days OZEMPIC 2 mg/dose (8 mg/3 mL) PnIj INJECT 2 MG SUBCUTANEOUSLY WEEKLY phentermine 37.5 mg tablet Take 1 tablet by mouth in the morning. proMETHazine 25 mg tablet Take 1 tablet by mouth every 4 (four) hours as needed for Nausea and Vomiting (N/V). 14 tablet 0 rosuvastatin 20 mg tablet 1 tablet in evening Orally Once a day for high cholesterol/triglycerides for 90 days SERTraline 100 mg tablet 2 tablet Orally Once a day for depression for 90 days cloNIDine 0.1 mg tablet Take 0.1 mg by mouth in the morning and 0.1 mg in the evening. enalapril 10 mg tablet Take by mouth daily. I have reviewed the patient's home medications PMH: Past Medical History: Diagnosis Date Depression High cholesterol Hypertension S/P arthroscopic surgery of left knee PSH: has a past surgical history that includes tubal ligation and cholecystectomy. Family Hx: Social History Tobacco Use Smoking status: Never Passive exposure: Never Smokeless tobacco: Never Vaping Use Vaping Use: Never used Substance Use Topics Alcohol use: No Alcohol/week: 0.0 standard drinks of alcohol Drug use: No Current Scheduled Medications Current IV Current Facility-Administered Medications: acetaminophen (TYLENOL) tablet 650 mg, 650 mg, Oral, Q6HPRN, Brad Zarate MD dicyclomine (BENTYL) tablet 20 mg, 20 mg, Oral, Q6HPRN, Brad Zarate MD enoxaparin (LOVENOX) injection 40 mg, 40 mg, Subcutaneous, DAILY, Brad Zarate MD furosemide (LASIX) injection 40 mg, 40 mg, Slow IV Push, BID MEALS, Cedric Buck MD lisinopriL (PRINIVIL,ZESTRIL) tablet 20 mg, 20 mg, Oral, DAILY, Brad Zarate MD ondansetron (ZOFRAN) tablet 4 mg, 4 mg, Oral, Q8HPRN, Brad Zarate MD proMETHazine (PHENERGAN) tablet 25 mg, 25 mg, Oral, Q4HPRN, Brad Zarate MD rosuvastatin (CRESTOR) tablet 20 mg, 20 mg, Oral, QHS, Brad Zarate MD SERTraline (ZOLOFT) tablet 100 mg, 100 mg, Oral, DAILY, Brad Zarate MD sodium chloride (NS) injection 5 mL, 5 mL, Intravenous, PRN, Casimiro Holland FNP Objective: Vitals: Vitals: 09/19/23 1900 09/19/23 1928 09/19/23 2302 09/20/23 0349 BP: (!) 145/74 129/74 (!) 151/61 127/58 BP Location: Left arm Left arm Left arm Patient Position: Supine Sitting Supine Pulse: 72 70 66 80 Resp: 20 20 20 16 Temp: 36.4 ?C (97.5 ?F) 36.4 ?C (97.6 ?F) 36.4 ?C (97.6 ?F) TempSrc: Temporal Artery Temporal Artery Temporal Artery SpO2: 93% 93% 93% 93% Weight: 260 lb 1.6 oz (118 kg) 262 lb 4.8 oz (119 kg) Height: I/O's: Intake/Output Summary (Last 24 hours) at 09/20/2023 0702 Last data filed at 09/19/2023 1928 Gross per 24 hour Intake 240 ml Output -- Net 240 ml Physical Exam: Constitutional: A&O x3, well-developed, well-nourished, and in no distress. Head: Normocephalic and atraumatic. Eyes: PERRL. Conjunctivae and EOM are normal. Neck: Normal range of motion. Neck supple. No JVD present. Cardiovascular: Normal rate, regular rhythm, normal heart sounds Pulmonary/Chest: Effort normal and breath sounds normal. No respiratory distress. Basilar crackles Abdominal: Soft. Bowel sounds are normal. No TTP, non-distended and no masses. No rebound or guarding. Musculoskeletal: Normal range of motion. Bilateral lower extremity edema. Lymphadenopathy: No cervical adenopathy. Neurological: A&O x3. No focal deficits. Gait normal. Skin: Skin is warm and dry. No rash noted. No erythema. No pallor. Labs: BMP:BMP NA (mmol/L) Date Value 09/19/2023 138 12/04/2022 134 (L) K (mmol/L) Date Value 09/19/2023 4.1 12/04/2022 4.8 CALCIUM (mg/dL) Date Value 09/19/2023 8.3 (L) 12/04/2022 9.1 CL (mmol/L) Date Value 09/19/2023 105 12/04/2022 102 BUN (mg/dL) Date Value 09/19/2023 11 12/04/2022 29 (H) CREATININE (mg/dL) Date Value 09/19/2023 0.70 12/04/2022 1.15 (H) GLUCOSE (mg/dL) Date Value 09/19/2023 122 (H) 12/04/2022 110 CO2 TOTAL (mmol/L) Date Value 09/19/2023 28 12/04/2022 18 (L) CBC:CBC WBC (10*3/?L) Date Value 09/19/2023 9.55 RBC (10*6/?L) Date Value 09/19/2023 3.23 (L) PLT (10*3/?L) Date Value 09/19/2023 264 HGB (g/dL) Date Value 09/19/2023 9.5 (L) HCT (%) Date Value 09/19/2023 29.2 (L) BMP:Hepatic Function Panel ALBUMIN (g/dL) Date Value 09/19/2023 3.6 T PROTEIN (g/dL) Date Value 09/19/2023 6.8 TOTAL BILI (mg/dL) Date Value 09/19/2023 0.3 ALTv (U/L) Date Value 09/19/2023 24 AST(SGOT) (U/L) Date Value 09/19/2023 30 ALK PHOS (U/L) Date Value 09/19/2023 61 Troponin: Recent Labs 09/19/23 1542 TROPNI 0.001 I have reviewed all relevant labs Imaging: CT CHEST PULMONARY ANGIOGRAM Result Date: 09/19/2023 EXAM: CT CHEST PULMONARY ANGIOGRAM CLINICAL INDICATION: 53 years old Female with Pulmonary embolism (PE) suspected, unknown D-dimer shortness of breath, SPO2 93% Comparison: None TECHNIQUE: Volumetric helical CT angiogram was performed of the chest (lung apices to bases) with IV contrast. Images were reconstructed at 1.25 mm slice thickness. Axial MIPs, as well as coronal and sagittal MPRs were generated and reviewed. FINDINGS: Devices: None HEART AND GREAT VESSELS: The opacification of the pulmonary vasculature is appropriate. No filling defects are seen through the level of the segmental pulmonary arteries. The pulmonary trunk is normal in caliber. The thoracic aorta is normal in caliber with no atherosclerotic calcifications. There are no calcifications of the coronary vessels. The heart is mildly enlarged. No pericardial abnormalities are identified. The RV to LV is normal. MEDIASTINUM AND LOWER NECK: No central airway lesions are detected. The esophagus is within normal limits. The included thyroid gland appears normal. LYMPH NODES: Scattered small lymph nodes in both sides of the mediastinum and hilar regions. No evidence of intrathoracic lymphadenopathy. LUNGS AND PLEURA: Mosaic attenuation of the lungs can be due to poor inspiratory effort or air trapping. Bilateral perihilar haziness with prominent central interstitial markings is noted. Few areas of pleural septal thickening is noted in the right upper lobe, and bibasilar lung castillo. An oblique linear opacity in the right lower lobe likely represents band atelectasis. No suspicious nodules. No pleural abnormality detected. VISUALIZED UPPER ABDOMEN: Gallbladder is surgically absent. CBD is dilated and measures 8 mm and likely reflects reservoir phenomena from prior cholecystectomy. The liver is enlarged and measures 19 cm anteroposteriorly. Included solid organs and hollow viscus appear within normal limits. OSSEOUS STRUCTURES AND SOFT TISSUES: No focal osseous lesions are detected. The soft tissues appear normal. Anterior bridging osteophytes of the thoracic vertebrae are suggestive of DISH. 1. No evidence of acute or chronic pulmonary embolism through the level of the subsegmental branches. AIDOC (computer aided detection software) confirms no filling defects in the pulmonary artery branches. 2.Mosaic attenuation of the lungs can be due to poor inspiratory effort or air trapping. More pronounced than mild perihilar haziness/ground glass opacities with prominent bronchovascular markings may represent mild pulmonary congestion versus a typical infectious/inflammatory process. Bilateral patchy pleuroparenchymal scarring and/or atelectasis. Preliminary Report Dictated by Resident: Donald Maradiaga I, Judith Lopes MD., have reviewed this study and agree with the above report. XR CHEST 1 VW Result Date: 09/19/2023 EXAM: XR CHEST 1 VW 09/19/2023 3:56 PM HISTORY: 53 years-old Female with shortness of breath . TECHNIQUE: Portable AP view of the chest. COMPARISON: None. FINDINGS: Lines and tubes: None. Cardiomediastinal: The cardiac silhouette is upper normal in size. Pulmonary vasculature is mildly prominent. Lungs and pleura: Low lung volumes. Coarsening of the interstitial markings with patchy peribronchial interstitial thickening and scattered subsegmental atelectasis could be related to mild interstitial edema, bronchitis or viral pneumonitis. No consolidation, pneumothorax or ramses pleural effusion. Included osseous structures show no acute abnormality. Coarsening of the interstitial markings with patchy peribronchial interstitial thickening could be related to mild pulmonary edema, bronchitis or viral pneumonitis. Assessment and plan: Principal Problem: Shortness of breath Active Problems: Morbid obesity with body mass index of 40.0-49.9 53-year-old female with hypertension, hyperlipidemia, positive family history presenting with volume overload. Concerning for acute heart failure exacerbation. Pulmonary edema Also with bilateral lower extremity edema. BNP 455. Normal renal function. - IV Lasix 40 mg twice daily - Echocardiogram - Maintain telemetry - Strict I/O - Cardiology consult Hypertension Lisinopril substituted for home enalapril Anxiety Sertraline 200 mg daily DVT prophylaxis: Lovenox Advanced Care Planning ( Z71.89 ) Above assessment and plan discussed at length with patient, patient expressed full understanding. Questions and concerns addressed I spent 18 minutes discussing the advance care planning. Advanced Directive Maker: Self Level of comfort: N/A Code Status: Full Disposition: Admit to inpatient [facility] Notes Date/Time Note Provider Source 2024-08-29 19:12:24 Called number on file. Pt was notified about urine culture results and the medication that was sent to the pharmacy Nitrofurantoin is susceptible to the bacteria. Pt is to follow up with PCP to get blood drawn due to urine culture results. Pt voiced understanding. Alisa Garcia RN 08/29/2024 7:13 PM RA SUPERVISOR Alisa Garcia RN [facility] 2024-08-29 17:23:54 Mackenzie Whalen is a 54 year old female Patient calling to go over lab results RA SUPERVISOR Deacon Reed [facility] 2024-08-19 19:34:41 [employer] message sent to pt per provider notes. RA SUPERVISOR Ankita Hampton MA [facility] 2024-08-19 11:30:10 Called pt., LVM A Ac MA [facility] 2024-08-19 11:26:50 Patient was prescribed Nitrofurantoin which is susceptible to this microbe. Please advise her to follow up with her PCP. [facility] 2024-08-18 20:24:17 Images from the original note were not included. Result Information Flag: Abnormal Abnormal Status: Preliminary result (Collected: 08/16/2024 19:01) Provider Status: Open Contains abnormal data Urine Culture Order: [id number] Status: Preliminary result Visible to patient: No (not released) Dx: Dysuria Specimen Information: URINE, CLEAN CATCH 0 Result Notes Urine Culture 20,000 CFU/mL Staphylococcus aureus Abnormal Susceptibility reported when available. 80,000 CFU/mL Staphylococcus epidermidis Abnormal When Staphylococcus aureus is recovered in a urine culture, obtaining blood cultures is recommended in order to exclude bloodstream infection. S. aureus largely enters the urinary tract hematogenously. Please contact the Antimicrobial Stewardship Program with questions. ASP Pager: [phone] As per report, blood cultures recommended. Please advise. RA SUPERVISOR Alisa Garcia RN [facility] 2023-10-23 13:28:07 Refill request for lasix received. Refill sent to pharmacy of choice. Patient is compliant as per [facility] Cardiology Protocol. A Irizarry MA [facility] 2023-10-06 16:40:02 Pt was notified ready for flower buncher or picker. She will come Monday. A Irizarry MA [facility] 2023-10-06 16:05:00 Left voicemail to notify patient that Dr. Metcalf has completed the forms and she can come pick them up. A Mcmlulen RN [facility] 2023-10-06 14:02:05 Done [facility] 2023-10-05 12:34:06 Patient returning nurse phone call regarding questions about FMLA paperwork. Patient asking for a call once forms are complete to come flower buncher or picker from office. Please advise 1. Is the leave for the hospital stay only? No 2. What is her date to return to work? Today 10/05/23 A Caceres [facility] 2023-10-05 09:53:55 Dr. Metcalf had some questions about patient's FMLA paperwork Is the leave for the hospital stay only? What is her date to return to work? Left message for patient advising return call to clinic RA SUPERVISOR Mia Mcmullen RN [facility] 2023-10-04 08:23:08 Patient brought FMLA forms to be filled out. I will put them into Dr. Metcalf folder for review. A Fairchild MA [facility] 2023-10-03 10:27:27 Pt notified of paperwork ready for flower buncher or picker. Few spots that require patient filling out. Copy made for office. Original at [facility] area for flower buncher or picker. A Irizarry MA [facility] 2023-10-02 16:26:17 Patient brought paperwork for Dr. Metcalf to fill out so she can go back to work. Will put into Dr. Metcalf folder for review. A Fairchild MA [facility] 2023-09-27 08:45:[address] Kaylen Jefferson A Mcmullen RN [facility] 2023-09-26 14:00:00 Images from the original note were not included. Venipuncture collection performed by clean technique on the left anticubitus. Total of 1 attempts were made. Slight pressure and a bandage/dressing were applied to the site(s). The patient experienced no complications. The following specimens were processed according to instructions and sent to [facility] laboratories per lab order on 09/26/2023 : LT BLUE SST 1 RED LAV PPT DK GREEN (LiHep) DK GREEN (SodH) MAYS DK BLUE (K2) DK BLUE (S) ACD Blood Culture NIPT/NTD [facility] 2023-09-26 13:00:00 Addended by: LAKIA METCALF MD on: 10/12/2023 08:21 PM Modules accepted: Orders [facility] 2023-09-25 09:26:41 TRANSITIONAL CARE MANAGEMENT ASSESSMENT 09/25/2023 Mackenzie Whalen [id number] Mackenzie Whalen is a 53 year old /White female was admitted on 09/19/23 to [facility], [facility] MED SURG. She was discharged on 09/21/23 with discharge disposition of HR- Routine Discharge. Admitting Physician: Cedric Buck Discharge Diagnosis: Pulmonary HF, HFpEF Linked Episodes Type: Episode: Status: Noted: Resolved: Last update: Updated by: TRANSITION OF CARE TCM Active 09/21/2023 09/25/2023 9:25 AM Marialuisa Francis, RN Comments: TCM [id number] outreach documentation: Discharge Assessment Chart Assessed: 09/25/23 TCM Outreach Completed: 09/25/23 Do you have a few minutes to speak with me about how you are doing at home?: Yes (pt reports she is doing ok.) Discharge Instructions Do you understand your at-home instructions?: Yes Medications Have you filled your prescriptions and do you have them in your home? : Yes Do you know how to take your medications?: Yes Can you provide me with the names or descriptions of any bonn-lzv-hrtqjta or supplements you are currently taking?: Yes Supplies Did you receive applicable home medical supplies/equipment?: N/A Follow Up Appointment Has a follow up appointment been scheduled?: Yes Do you have any questions about your follow up appointments?: No Are you able to get to your appointment? Who will be taking you?: Yes Home Health Assistance Has the home health nurse contacted you since you've been home?: N/A Survey - Recognition Is there anything you would like to share about your recent hospitalization, or anyone you would like to recognize?: No Do you have any suggestions for improvement?: No Do you have any other questions or concerns at this time?: No Future Appointments: Future Appointments Provider Department Dept Phone 10/03/2023 10:30 AM [facility] SLEEP GEOPHYSICAL E LOGGER [facility], [place] [phone] 10/12/2023 11:30 AM Mora Ortiz MD [facility] [place] [place] [phone] 11/20/2023 3:30 PM Kiersten Gonzalez MD [facility], [place] [phone] A Francis RN [facility] 2023-09-22 11:27:52 Care Transitions Nurse CM made f/u call to patient post-discharge. No answer, call went to voicemail. CM left discreet message with CM's call back information. CM will try again at a later time. WARREN Salgado, RN, CCRN Financial Administration Officer, Transitions of Care [email or web address] A Francis RN [facility] 2023-09-21 15:58:52 The patient was seen in the hospital for volume overload. Recommend home sleep study to assess obstructive sleep apnea. [facility] 2023-09-21 14:34:20 Problem: Respiratory Function - Impaired Goal: Able to cough effectively Outcome: Adequate for discharge Goal: Adequate oxygenation Outcome: Adequate for discharge Goal: Adequate work of breathing Outcome: Adequate for discharge Goal: Patent airway Outcome: Adequate for discharge Problem: Falls, Risk of Goal: Absence of falls Outcome: Adequate for discharge Problem: Pain Goal: Control of pain at or below patient's documented comfort goal Outcome: Adequate for discharge Goal: Reduction in pain sensation Outcome: Adequate for discharge Problem: Discharge Planning Goal: Adequate for discharge Outcome: Adequate for discharge Goal: Effective communication Outcome: Adequate for discharge RA SUPERVISOR Beatrice Kahn RN [facility] 2023-09-20 23:03:43 Problem: Respiratory Function - Impaired Goal: Able to cough effectively 09/20/20232302 by Laurence Ruffin RN Outcome: Progressing as expected 09/20/20232204 by Laurence Ruffin RN Outcome: Progressing as expected Goal: Adequate oxygenation 09/20/20232302 by Laurence Ruffin RN Outcome: Progressing as expected 09/20/20232204 by Laurence Ruffin RN Outcome: Progressing as expected Goal: Adequate work of breathing 09/20/20232302 by Laurence Ruffin RN Outcome: Progressing as expected 09/20/20232204 by Laurence Ruffin RN Outcome: Progressing as expected Goal: Patent airway 09/20/20232302 by Laurence Ruffin RN Outcome: Progressing as expected 09/20/20232204 by Laurence Ruffin RN Outcome: Progressing as expected Problem: Falls, Risk of Goal: Absence of falls 09/20/20232302 by Laurence Ruffin RN Outcome: Progressing as expected 09/20/20232204 by Laurence Ruffin RN Outcome: Progressing as expected Problem: Pain Goal: Control of pain at or below patient's documented comfort goal 09/20/20232302 by Laurence Ruffin RN Outcome: Progressing as expected 09/20/20232204 by Laurence Ruffin RN Outcome: Progressing as expected Goal: Reduction in pain sensation 09/20/20232302 by Laurence Ruffin RN Outcome: Progressing as expected 09/20/20232204 by Laurence Ruffin RN Outcome: Progressing as expected [facility] 2023-09-20 22:05:22 Problem: Respiratory Function - Impaired Goal: Able to cough effectively Outcome: Progressing as expected Goal: Adequate oxygenation Outcome: Progressing as expected Goal: Adequate work of breathing Outcome: Progressing as expected Goal: Patent airway Outcome: Progressing as expected Problem: Falls, Risk of Goal: Absence of falls Outcome: Progressing as expected Problem: Pain Goal: Control of pain at or below patient's documented comfort goal Outcome: Progressing as expected Goal: Reduction in pain sensation Outcome: Progressing as expected Problem: Discharge Planning Goal: Adequate for discharge Outcome: Progressing as expected Goal: Effective communication Outcome: Progressing as expected [facility] 2023-09-20 17:38:46 Problem: Respiratory Function - Impaired Goal: Able to cough effectively Outcome: Progressing as expected Goal: Adequate oxygenation Outcome: Progressing as expected Goal: Adequate work of breathing Outcome: Progressing as expected Goal: Patent airway Outcome: Progressing as expected Problem: Falls, Risk of Goal: Absence of falls Outcome: Progressing as expected Problem: Pain Goal: Control of pain at or below patient's documented comfort goal Outcome: Progressing as expected Goal: Reduction in pain sensation Outcome: Progressing as expected Problem: Discharge Planning Goal: Adequate for discharge Outcome: Progressing as expected Goal: Effective communication Outcome: Progressing as expected [facility] Renee Jimenes RN [facility] 2023-09-19 22:15:31 Problem: Respiratory Function - Impaired Goal: Able to cough effectively Outcome: Progressing as expected Goal: Adequate oxygenation Outcome: Progressing as expected Goal: Adequate work of breathing Outcome: Progressing as expected Goal: Patent airway Outcome: Progressing as expected Problem: Falls, Risk of Goal: Absence of falls Outcome: Progressing as expected Problem: Pain Goal: Control of pain at or below patient's documented comfort goal Outcome: Progressing as expected Goal: Reduction in pain sensation Outcome: Progressing as expected Problem: Discharge Planning Goal: Adequate for discharge Outcome: Progressing as expected Goal: Effective communication Outcome: Progressing as expected RA SUPERVISOR [facility] 2023-09-19 19:00:23 Report given to NAVYA Rojoservicing manager RA SUPERVISOR Katty Loera RN [facility] 2023-09-19 15:27:33 Reports new onset of edema to lower legs bilaterally. Reports gained 30lbs in 16 days. Told PCP about it but she has not been able to get into PCP office yet. Recently diagnosed with UTI at ~1 week - currently taking abx for UTI. Hx - None A Dowell RN [facility] 2023-09-19 14:59:00 Associated Order(s): EKG-12 Lead ROUTINE ONCE Pre-Procedure Diagnose(s): Leg swelling Post-Procedure Diagnose(s): Leg swelling [facility] Emergency Department Note Patient Name: Mackenzie Whalen Date of : 1970 53 year old female Treatment Room: Room/bed info not found Primary Care Physician: Kaylen Jefferson Patient Escorted by: Family [5] Mode of Arrival: Personal means [1] EMS Treatment Prior to ED Arrival: CONSTRUCTION REP treatment: None Travel and Exposure Screening: Symptoms Does patient have any of these symptoms?: (not recorded) Exposure Screening Has patient had contact with someone with a communicable disease in the last month?: (not recorded) Diseases exposed to:: (not recorded) Is Patient ?: (not recorded) Exposure Date: (not recorded) Chief Complaint: Chief Complaint Patient presents with Edema Lower leg bilaterally. History of Present Illness: 53 y/o female pt presents to ER for evaluation of bilateral lower extremity swelling, SOB/KOWALSKI and weight gain. She reports she gained 30 lbs in past 16 days. She was seen by PCP on 09/14/2023 for urinary symptoms and leg swelling and was sent to ER for evaluation. She was seen at [facility] ER on that day and was discharged home on Lasix 20 mg PO and potassium. Pt was advised to see a textile machinery instructor. Pt reports her leg swelling and SOB has got worsened since the last ER visit. Pt denies chest pain but feels SOB/KOWALSKI. She also reports coughing at night time and PND. Pt feels abdomen is bloated. Has some nausea, no vomiting. No urinary symptoms Pt has history of prediabetes, HTN and HLD. No known CAD/CHF History provided by: Patient History limited by: none. healthcare interpreter used: No Past Medical History/Immunizations: Past Medical History: Diagnosis Date Depression High cholesterol Hypertension S/P arthroscopic surgery of left knee Tetanus received in last 5 years: Unknown Childhood immunizations: Up-to-date Allergies: No Known Allergies Past Social History: Tobacco Use Never smoked or used smokeless tobacco. Vaping Use Never used Alcohol Use No. Drug Use No. Sexual Activity Sexually active; Partners: Male; Control/Protection: Surgical. Past Surgical History: Past Surgical History: Procedure Laterality Date CHOLECYSTECTOMY TUBAL LIGATION Review of Systems: Review of Systems Constitutional: Positive for activity change and fatigue. Negative for appetite change, chills and fever. HENT: Negative for congestion, ear pain, facial swelling, rhinorrhea and sore throat. Eyes: Negative. Respiratory: Positive for chest tightness and shortness of breath. Cardiovascular: Positive for leg swelling. Negative for chest pain and palpitations. Gastrointestinal: Positive for nausea. Negative for abdominal pain, diarrhea, rectal pain and vomiting. Genitourinary: Negative. Negative for dysuria, urgency and pelvic pain. Musculoskeletal: Negative for arthralgias, back pain, gait problem, neck pain and neck stiffness. Skin: Negative for color change and rash. Neurological: Negative for dizziness, tremors, syncope, light-headedness and headaches. Psychiatric/Behavioral: Negative for behavioral problems and confusion. Physical Exam: ED Triage Vitals [09/19/23 1530] Weight 117.5 kg (259 lb) Actual or estimated Estimated by patient/family report Height 1.6 m (5' 3") BP 114/88 Pulse 73 Resp 20 Temp 37 ?C (98.6 ?F) Temp source Oral SpO2 100 % Measured on Room air Physical Exam Vitals and nursing note reviewed. Constitutional: General: She is awake. She is not in acute distress. Appearance: Normal appearance. She is well-developed and well-groomed. She is not ill-appearing or toxic-appearing. HENT: Head: Normocephalic and atraumatic. Right Ear: External ear normal. Left Ear: External ear normal. Nose: No congestion. Mouth/Throat: Mouth: Mucous membranes are moist. Pharynx: Oropharynx is clear. No oropharyngeal exudate. Eyes: General: No scleral icterus. Conjunctiva/sclera: Conjunctivae normal. Cardiovascular: Rate and Rhythm: Normal rate and regular rhythm. Pulses: Radial pulses are 2+ on the right side. Pulmonary: Effort: No respiratory distress. Breath sounds: Rhonchi present. No wheezing. Chest: Chest wall: No tenderness. Abdominal: General: Bowel sounds are normal. There is no distension. Palpations: Abdomen is soft. Tenderness: There is no abdominal tenderness. There is no guarding. Musculoskeletal: Cervical back: Neck supple. No rigidity. Right lower leg: Edema present. Left lower leg: Edema present. Comments: Bilateral lower extremity edema from ankle, pretibial area and lower leg up to the knees Skin: General: Skin is warm and dry. Capillary Refill: Capillary refill takes less than 2 seconds. Findings: No erythema or rash. Neurological: Mental Status: She is alert and oriented to person, place, and time. Psychiatric: Mood and Affect: Mood normal. Behavior: Behavior normal. Behavior is cooperative. Radiology: CT CHEST PULMONARY ANGIOGRAM Final Result EXAM: CT CHEST PULMONARY ANGIOGRAM CLINICAL INDICATION: 53 years old Female with Pulmonary embolism (PE) suspected, unknown D-dimer shortness of breath, SPO2 93% Comparison: None TECHNIQUE: Volumetric helical CT angiogram was performed of the chest (lung apices to bases) with IV contrast. Images were reconstructed at 1.25 mm slice thickness. Axial MIPs, as well as coronal and sagittal MPRs were generated and reviewed. FINDINGS: Devices: None HEART AND GREAT VESSELS: The opacification of the pulmonary vasculature is appropriate. No filling defects are seen through the level of the segmental pulmonary arteries. The pulmonary trunk is normal in caliber. The thoracic aorta is normal in caliber with no atherosclerotic calcifications. There are no calcifications of the coronary vessels. The heart is mildly enlarged. No pericardial abnormalities are identified. The RV to LV is normal. MEDIASTINUM AND LOWER NECK: No central airway lesions are detected. The esophagus is within normal limits. The included thyroid gland appears normal. LYMPH NODES: Scattered small lymph nodes in both sides of the mediastinum and hilar regions. No evidence of intrathoracic lymphadenopathy. LUNGS AND PLEURA: Mosaic attenuation of the lungs can be due to poor inspiratory effort or air trapping. Bilateral perihilar haziness with prominent central interstitial markings is noted. Few areas of pleural septal thickening is noted in the right upper lobe, and bibasilar lung castillo. An oblique linear opacity in the right lower lobe likely represents band atelectasis. No suspicious nodules. No pleural abnormality detected. VISUALIZED UPPER ABDOMEN: Gallbladder is surgically absent. CBD is dilated and measures 8 mm and likely reflects reservoir phenomena from prior cholecystectomy. The liver is enlarged and measures 19 cm anteroposteriorly. Included solid organs and hollow viscus appear within normal limits. OSSEOUS STRUCTURES AND SOFT TISSUES: No focal osseous lesions are detected. The soft tissues appear normal. Anterior bridging osteophytes of the thoracic vertebrae are suggestive of DISH. IMPRESSION 1. No evidence of acute or chronic pulmonary embolism through the level of the subsegmental branches. AIDOC (computer aided detection software) confirms no filling defects in the pulmonary artery branches. 2.Mosaic attenuation of the lungs can be due to poor inspiratory effort or air trapping. More pronounced than mild perihilar haziness/ground glass opacities with prominent bronchovascular markings may represent mild pulmonary congestion versus a typical infectious/inflammatory process. Bilateral patchy pleuroparenchymal scarring and/or atelectasis. Preliminary Report Dictated by Resident: Donald Maradiaga I, Judith Lopes MD., have reviewed this study and agree with the above report. XR CHEST 1 VW Final Result EXAM: XR CHEST 1 VW 09/19/2023 3:56 PM HISTORY: 53 years-old Female with shortness of breath . TECHNIQUE: Portable AP view of the chest. COMPARISON: None. FINDINGS: Lines and tubes: None. Cardiomediastinal: The cardiac silhouette is upper normal in size. Pulmonary vasculature is mildly prominent. Lungs and pleura: Low lung volumes. Coarsening of the interstitial markings with patchy peribronchial interstitial thickening and scattered subsegmental atelectasis could be related to mild interstitial edema, bronchitis or viral pneumonitis. No consolidation, pneumothorax or ramses pleural effusion. Included osseous structures show no acute abnormality. IMPRESSION Coarsening of the interstitial markings with patchy peribronchial interstitial thickening could be related to mild pulmonary edema, bronchitis or viral pneumonitis. Lab Results: Lab Results COMP. METABOLIC PANEL (74477) - Abnormal Result Value Ref Range NA 138 135 - 145 mmol/L K 4.1 3.5 - 5.0 mmol/L CL 105 98 - 108 mmol/L CO2 TOTAL 28 23 - 31 mmol/L AGAP 5 2 - 16 BUN 11 7 - 23 mg/dL GLUCOSE 122 (*) 70 - 110 mg/dL CREATININE 0.70 0.50 - 1.04 mg/dL TOTAL BILI 0.3 0.1 - 1.1 mg/dL CALCIUM 8.3 (*) 8.6 - 10.6 mg/dL T PROTEIN 6.8 6.3 - 8.2 g/dL ALBUMIN 3.6 3.5 - 5.0 g/dL ALK PHOS 61 34 - 122 U/L ALTv 24 5 - 35 U/L AST(SGOT) 30 13 - 40 U/L eGFR 103.6 mL/min/1.73m2 CBC WITH DIFF - Abnormal WBC 9.55 4.30 - 11.10 10*3/?L RBC 3.23 (*) 3.93 - 5.25 10*6/?L HGB 9.5 (*) 11.6 - 15.0 g/dL HCT 29.2 (*) 35.7 - 45.2 % MCV 90.4 80.6 - 95.5 fL MCH 29.4 25.9 - 32.8 pg MCHC 32.5 31.6 - 35.1 g/dL RDW-SD 48.2 39.0 - 49.9 fL RDW-CV 14.8 12.0 - 15.5 % PLT 264 166 - 358 10*3/?L MPV 10.1 9.5 - 12.9 fL NRBC/100 WBC 0.0 0.0 - 10.0 /100 WBCs NRBC x10 3 <0.01 10*3/?L GRAN MAT (NEUT) % 46.4 % IMM GRAN % 0.50 % LYMPH % 41.5 % MONO % 8.1 % EOS % 3.2 % BASO % 0.3 % GRAN MAT x10 3 (ANC) 4.43 1.88 - 7.09 10*3/uL IMM GRAN x10 3 0.05 0.00 - 0.06 10*3/uL LYMPH x10 3 3.96 (*) 1.32 - 3.29 10*3/uL MONO x10 3 0.77 0.33 - 0.92 10*3/uL EOS x10 3 0.31 0.03 - 0.39 10*3/uL BASO x10 3 0.03 0.01 - 0.07 10*3/uL N-TERMINAL PRO-BNP - Abnormal NT-proBNP 455 <=125 pg/mL URINALYSIS - Abnormal APPEARANCE Clear Clear COLOR Yellow Yellow PH 5.0 4.8 - 8.0 SP GRAVITY 1.013 1.003 - 1.030 GLU U QUAL Normal Normal BLOOD Negative Negative KETONES Negative Negative PROTEIN Negative Negative UROBILIN Normal Normal BILIRUBIN Negative Negative NITRITE Negative Negative LEUK ARIK 25/uL (*) Negative RBC/HPF 1 0 - 3 HPF WBC/HPF 1 0 - 5 HPF BACTERIA Negative Negative MUCOUS Slight (*) Negative LPF SQ EPITH 1 HPF HYAL CAST 7 (*) <=2 LPF TROPONIN I - Normal TROPONIN I 0.001 <=0.034 ng/mL LIPASE - Normal LIPASE 28 0 - 220 U/L COVID-19 (ID NOW RAPID TESTING) - Normal SARS-CoV-2 Rapid ID NOW Not Detected Not Detected RAPID INFLUENZA A/B - Normal Rapid Influenza A Negative Negative Rapid Influenza B Negative Negative MAGNESIUM PHOSPHORUS N-TERMINAL PRO-BNP FERRITIN SERUM IRON PANEL EKG: If EKG completed, see Procedure Note. Orders and Treatments: Orders Placed This Encounter Procedures XR CHEST [address] CHEST PULMONARY ANGIOGRAM TROPONIN I COMP. METABOLIC PANEL (82195) LIPASE, SERUM CBC WITH DIFF N-Terminal Pro-Bnp Urinalysis COVID-19 (ID NOW TESTING) RAPID INFLUENZA A/B Magnesium Phosphorus N-Terminal PRO-BNP Ferritin Serum Iron Panel Lab Only COVID Interpretation Consult Cardiac Rehab - Inpatient Phase 1, Indication(s): CHF - This admission Consult Cardiology - For ADC Patients Only O2 Per Protocol O2 Per Protocol Nasal Cannula Orders Placed This Encounter Medications sodium chloride (NS) injection 5 mL furosemide (LASIX) injection 40 mg iopamidol (ISOVUE 370-500 mL) injection 100 mL acetaminophen (TYLENOL) tablet 650 mg enoxaparin (LOVENOX) injection 40 mg furosemide (LASIX) injection 40 mg First Provider Eval: ED Events Date/Time Event User Comments 09/19/23 1508 Medical Screening Begins CASIMIRO DOMINGUEZ -- 09/19/23 1508 First Provider Evaluation CASIMIRO DOMINGUEZ -- ED COURSE 53 y/o female pt presents to ER for evaluation of bilateral lower extremity swelling, SOB/KOWALSKI and weight gain progressively worsening of the past 16 days. Pt is already on Lasix 20 mg PO daily from ER visit on 09/14/2023 for similar symptoms. Pt reports symptoms are feeling worse. Pt denies cough, congestion, or URI symptoms or fever CBC notable WBC 9.55, hgb 9.5, hct 29.2 Cmp - WNL Troponin - wnl NT proBNP 455 Lasix 40 mg iv given CXR IMPRESSION Coarsening of the interstitial markings with patchy peribronchial interstitial thickening could be related to mild pulmonary edema, bronchitis or viral pneumonitis. All available results discussed with the pt. Pt ambulated to the restroom and when returned SPO2 88-89% in RA. SPO2 93% in RA at rest CT chest angiogram IMPRESSION 1. No evidence of acute or chronic pulmonary embolism through the level of the subsegmental branches. AIDOC (computer aided detection software) confirms no filling defects in the pulmonary artery branches. 2.Mosaic attenuation of the lungs can be due to poor inspiratory effort or air trapping. More pronounced than mild perihilar haziness/ground glass opacities with prominent bronchovascular markings may represent mild pulmonary congestion versus a typical infectious/inflammatory process. Bilateral patchy pleuroparenchymal scarring and/or atelectasis. Preliminary Report Dictated by Resident: Donald Maradiaga I, Judith Lopes MD., have reviewed this study and agree with the above Covid 19 and flu test added All results discussed with the pt. Discussed with Dr.Oville calle and accepted for admission Diagnosis/Impression as of 09/19/23 1904 Leg swelling Shortness of breath Hypoxia Acute pulmonary edema Procedures: EKG-12 Lead ROUTINE ONCE Date/Time: 09/19/2023 7:12 PM Performed by: Casimiro Holland FNP Authorized by: Casimiro Holland FNP Interpretation: Interpretation: abnormal Details: NSR Rate: ECG rate: 65 ECG rate assessment: normal Rhythm: Rhythm: sinus rhythm Ectopy: Ectopy: none QRS: QRS axis: Normal QRS intervals: Normal QRS conduction: normal ST segments: ST segments: Normal T waves: T waves: normal Other findings: Other findings: LVH MDM: Medical Decision Making DDX considered includes but not limited to new onset CHF, pericardial effusion, NSTEMI, cardiomyopathy, PE, multifocal pneumonia, ACS, covid 19 INFECTION, viral respiratory illness, antonino, Renal failure Problems Addressed: Acute pulmonary edema: acute illness or injury Hypoxia: acute illness or injury Leg swelling: acute illness or injury Shortness of breath: acute illness or injury Amount and/or Complexity of Data Reviewed Labs: ordered. Decision-making details documented in ED Course. Radiology: ordered. Decision-making details documented in ED Course. ECG/medicine tests: ordered. Decision-making details documented in ED Course. Risk Prescription drug management. Decision regarding hospitalization. Flowsheet Documentation: Scoring Tools: No data recorded Disposition/Condition: ED Disposition ED Disposition Admit - Observation Condition -- Comment Is (or was) this a planned re-admission?: No Treatment Team: [facility] [[id number]] Is this patient COVID positive or a patient under investigation (PUI)?: No Discharge Medications: Patient's Medications START taking these medications No medications on file CONTINUE taking these medications which have NOT CHANGED CLONIDINE 0.1 MG TABLET Take 0.1 mg by mouth in the morning and 0.1 mg in the evening. DICLOFENAC 75 MG EC TABLET TAKE ONE (1) TABLET(S) BY MOUTH TWICE A DAY NEEDED FOR PAIN. DICYCLOMINE 20 MG TABLET Take 1 tablet by mouth every 6 (six) hours as needed for Abdominal pain. ENALAPRIL 10 MG TABLET Take by mouth daily. ONDANSETRON (ZOFRAN) 4 MG TABLET Take 1 tablet by mouth every 8 (eight) hours as needed for Nausea and Vomiting (N/V). ONDANSETRON 4 MG DISINTEGRATING TABLET 1 tablet on the tongue and allow to dissolve Orally TID for 5 days OZEMPIC 2 MG/DOSE (8 MG/3 ML) PNIJ INJECT 2 MG SUBCUTANEOUSLY WEEKLY PHENTERMINE 37.5 MG TABLET Take 1 tablet by mouth in the morning. PROMETHAZINE 25 MG TABLET Take 1 tablet by mouth every 4 (four) hours as needed for Nausea and Vomiting (N/V). ROSUVASTATIN 20 MG TABLET 1 tablet in evening Orally Once a day for high cholesterol/triglycerides for 90 days SERTRALINE 100 MG TABLET 2 tablet Orally Once a day for depression for 90 days START taking Modified Medications as Prescribed No medications on file STOP taking these medications No medications on file Follow-up: Electronically signed by: Casimiro Holland FNP 09/19/231911 Casimiro Holland FNP 09/19/231912 RA SUPERVISOR Associated attestation - Ross Cerna DO - 09/20/2023 8:42 AM CAMERA SUPERVISOR I was available for consultation at all times during the patient encounter and present in the Emergency Department providing general supervision. However, I did not see or evaluate the patient. Patient seen and evaluated by VIRGILIO. [facility] 2023-09-18 15:15:00 Regarding: SOB ----- Message from Nacho Whalen sent at 09/18/2023 3:15 PM CAMERA SUPERVISOR ----- Pt reporting weight gain Aug 29 - Sep 14 approx 30 lbs, PCP suspects CHF sent her from office visit to ER, Pt experiencing heavy fluid retention, SOB. Unable to work. RA SUPERVISOR Estefanía Ramsey RN [facility] 2023-09-18 15:15:00 Adult Triage Assessment Last Clinic Visit: 09/14/2022 PCP, was sent to ER by PCP for current symptoms. Pt wanting sooner appt Primary Symptom: weight gain Onset / Duration: ongoing Location / Description: n/a Pain / Severity: lower back pain 7 out of 10 Associated Symptoms: swelling, out of breath Fever / Method: denies Hydration: no changes to I/O Treatment so far: n/a Effect on ADL's: some LMP: n/a Pre-existing condition / Immunocompromised: UTI Nurse Note: after assessment, pt was advised to go to ER for current symptoms of SOB and extremity swelling. Pt requesting sooner appt, this RN informed pt clinic may not see the request for days and even then an appt may not be secured in appropriate time frame for current symptoms. Pt verbalized understanding. Unsure if pt will go to ER. *routed to clinic for appt escalation [facility] Estefanía Ramsey, NAVYA Reason for Disposition Patient sounds very sick or weak to the triager Protocols used: Breathing [id number] [facility]
--- NOTE | 2024-11-15 22:44 | RAD REPORT ---
EXAMINATION: XR RIGHT TIBIA AND FIBULA CLINICAL INDICATION: PAIN TECHNIQUE:Two view radiograph of the right tibia and fibula were obtained. COMPARISON: No prior exam. FINDINGS: Trimalleolar fracture of the ankle without dislocation. Moderate calcaneal spurs. Splint ma terial is present limiting bony detail. No additional fracture seen.
--- NOTE | 2024-11-15 22:44 | RAD REPORT ---
EXAMINATION: XR RIGHT ANKLE CLINICAL INDICATION: . Pain;Swelling TECHNIQUE:Two view radiograph of the right ankle were obtained. COMPARISON: No prior exam. FINDINGS: Trimalleolar fracture is present with mild displacement. Prominent calcaneal spurs. Splint material is present, limiting bone detail.
--- NOTE | 2024-11-15 22:45 | EDPHYS ---
Physician Documentation [facility] Name: Deb Castle Age: 54 yrs Sex: Female : 1970 Arrival Date: 11/15/2024 Time: 21:33 Bed 2 Private MD: ED Physician Anatoly Stuart HPI: 11/15 22:02 This 54 yrs old Female presents to ER via Unassigned with complaints of Fall helen Injury, Ankle Injury. 22:02 Details of fall: The patient fell from a height, down approximately 1 stairs. Onset: helen The symptoms/episode began/occurred just prior to arrival. Associated injuries: The patient sustained right ankle and anterior aspect of right ankle, decreased range of motion, obvious fracture, painful injury. Severity of symptoms: At their worst the symptoms were moderate, in the emergency department the symptoms are unchanged. The patient has not experienced similar symptoms in the past. Historical: - Allergies: 22:04 No Known Allergies; ha1 - PMHx: 22:04 depressive disorder; Hypercholesterolemia; Hypertensive disorder; ha1 - PSHx: 22:04 Cholecystectomy; knee; tubal; ha1 - Immunization history:: Adult Immunizations up to date. - Infectious Disease History:: Denies. - Family history:: not pertinent. - Social history:: Smoking status: Patient denies any tobacco usage or history of. ROS: 22:02 Constitutional: Negative for fever, chills, and weight loss, Eyes: Negative for injury, helen pain, redness, and discharge, ENT: Negative for injury, pain, and discharge, Neck: Negative for injury, pain, and swelling, Cardiovascular: Negative for chest pain, palpitations, and edema, Respiratory: Negative for shortness of breath, cough, wheezing, and pleuritic chest pain, Abdomen/GI: Negative for abdominal pain, nausea, vomiting, diarrhea, and constipation, Back: Negative for injury and pain, : Negative for injury, bleeding, discharge, and swelling, Skin: Negative for injury, rash, and discoloration, Neuro: Negative for headache, weakness, numbness, tingling, and seizure, Psych: Negative for depression, anxiety, suicide ideation, homicidal ideation, and hallucinations, Allergy/Immunology: Negative for hives, rash, and allergies, Endocrine: Negative for neck swelling, polydipsia, polyuria, polyphagia, and marked weight changes, Hematologic/Lymphatic: Negative for swollen nodes, abnormal bleeding, and unusual bruising, 22:02 MS/extremity: Positive for decreased range of motion, pain, tenderness, of the right ankle and anterior aspect of right ankle, Exam: 22:02 Constitutional: This is a well developed, well nourished patient who is awake, alert, helen and in no acute distress. Head/Face: Normocephalic, atraumatic. Eyes: Pupils equal round and reactive to light, extra-ocular motions intact. Lids and lashes normal. Conjunctiva and sclera are non-icteric and not injected. Cornea within normal limits. Periorbital areas with no swelling, redness, or edema. ENT: Nares patent. No nasal discharge, no septal abnormalities noted. Tympanic membranes are normal and external auditory canals are clear. Oropharynx with no redness, swelling, or masses, exudates, or evidence of obstruction, uvula midline. Mucous membranes moist. Neck: Trachea midline, no thyromegaly or masses palpated, and no cervical lymphadenopathy. Supple, full range of motion without nuchal rigidity, or vertebral point tenderness. No Meningismus. Chest/axilla: Normal chest wall appearance and motion. Nontender with no deformity. No lesions are appreciated. Cardiovascular: Regular rate and rhythm with a normal S1 and S2. No gallops, murmurs, or rubs. Normal PMI, no JVD. No pulse deficits. Respiratory: Lungs have equal breath sounds bilaterally, clear to auscultation and percussion. No rales, rhonchi or wheezes noted. No increased work of breathing, no retractions or nasal flaring. Abdomen/GI: Soft, non-tender, with normal bowel sounds. No distension or tympany. No guarding or rebound. No evidence of tenderness throughout. Back: No spinal tenderness. No costovertebral tenderness. Full range of motion. Skin: Warm, dry with normal turgor. Normal color with no rashes, no lesions, and no evidence of cellulitis. Neuro: Awake and alert, GCS 15, oriented to person, place, time, and situation. Cranial nerves II-XII grossly intact. Motor strength 5/5 in all extremities. Sensory grossly intact. Cerebellar exam normal. Normal gait. Psych: Awake, alert, with orientation to person, place and time. Behavior, mood, and affect are within normal limits. 22:02 Musculoskeletal/extremity: ROM: limited active range of motion due to pain, in the right ankle and anterior aspect of right ankle, limited passive range of motion due to pain, Circulation is intact in all extremities. Sensation intact. Compartment Syndrome exam of affected extremity: is normal. Weight bearing: DVT Exam: pain, swelling, that is moderate, Vital Signs: 21:35 BP 113 / 52; Pulse 74; Resp 17 S; Temp 98.1(T); Pulse Ox 98% on R/A; Weight 108.86 kg; ha1 Height 5 ft. 0 in. ; 23:20 BP 117 / 58; Pulse 76; Resp 16 S; Pulse Ox 98% on R/A; ha1 21:35 Body Mass Index 46.87 (108.86 kg, 152.4 cm) ha1 Karina Coma Score: 21:35 Eye Response: spontaneous(4). Motor Response: obeys commands(6). Verbal Response: ha1 oriented(5). Total: 15. 22:02 Eye Response: spontaneous(4). Motor Response: obeys commands(6). Verbal Response: helen oriented(5). Total: 15. Trauma Score (Adult): 21:35 Eye Response: spontaneous(1); Verbal Response: oriented(1); Motor Response: obeys ha1 commands(2); Systolic BP: > 89 mm Hg(4); Respiratory Rate: 10 to 29 per min(4); Karina Score: 15; Trauma Score: 12 Procedures: 22:43 Reduction: of the right ankle, using traction, Immobilized with POSTERIOR. STIRRUP BY helen STACK. Patient tolerated well. Post reduction film - reveals improved alignment. MDM: 21:39 Medical Screening Exam initiated helen 22:05 Differential diagnosis: fracture. Data reviewed: vital signs, nurses notes, lab test [facility] result(s), radiologic studies, plain films. Consideration of Admission/Observation Escalation of care including admission/observation considered. I considered the following discharge prescriptions or medication management in the emergency department Medications were administered in the Emergency Department. See MAR. Independent interpretation of the following test(s) in the Emergency Department CT Scan: My interpretation is CT RIGHT ANKLE. Test considered but Not performed:. Care significantly affected by the following chronic conditions: Hypertension, Obesity, DEPRESSION. Counseling: I had a detailed discussion with the patient and/or guardian regarding the historical points, exam findings, and any diagnostic results supporting the discharge/admit diagnosis, lab results, radiology results, the need for outpatient follow up, for definitive care, a orthopedic surgeon. 11/15 22:01 Order name: CBC with Diff [facility] 11/15 22:01 Order name: Comprehensive Metabolic Panel [facility] 11/15 22:01 Order name: Ankle Right 3 View XRAY; Complete Time: 23:17 helen 11/15 22:01 Order name: Tib Fib Right XRAY; Complete Time: 23:17 [facility] 11/15 22:12 Order name: Ankle Right Wo Con EDMS 11/15 22:01 Order name: IV Saline Lock - Large Bore; Complete Time: 22:40 helen 11/15 22:01 Order name: Ice pack; Complete Time: 23:34 helen 11/15 23:34 Order name: Crutches; Complete Time: 23:34 ha1 Administered Medications: 23:06 Drug: Ketorolac IVP 15 mg IVP once Route: IVP; Site: left antecubital; vc1 23:30 Follow up: Response: No adverse reaction; Pain is decreased ha1 23:06 Drug: morphine IVP or IV 4 mg IVP once over 4 mins Route: IVP; Infused Over: 4 mins; vc1 Site: left antecubital; 23:30 Follow up: Response: No adverse reaction; Marked relief of symptoms; Pain is decreased; ha1 RASS: Alert and Calm (0) 23:06 Drug: Ondansetron IVP 4 mg IVP once; over 2 minutes Route: IVP; Site: left antecubital; vc1 23:30 Follow up: Response: No adverse reaction; Marked relief of symptoms ha1 23:19 Drug: NS 0.9% IV 1000 ml IV at 1000 ml once; to be given as a bolus over 60 minutes vc1 Route: IV; Rate: 1000 ml; Site: left antecubital; 23:50 Follow up: Response: No adverse reaction; IV Status: Completed infusion ha1 Disposition Summary: 11/15/24 22:44 Discharge Ordered Notes: Location: Home helen Problem: new helen Symptoms: have improved helen Condition: Stable helen Diagnosis - Displaced trimalleolar fracture of right lower leg, initial encounter for closed helen fracture - Fall on same level, unspecified helen Followup: helen - With: Private Physician - When: 2 - 3 days - Reason: Recheck today's complaints, Continuance of care, Re-evaluation by your physician Followup: helen - With: Sacha Medley MD - When: 2 - 3 days - Reason: Recheck today's complaints, Re-evaluation by your physician Discharge Instructions: - Discharge Summary Sheet helen - Displaced Fibular Ankle Fracture Treated With ORIF helen - Ankle Fracture, [id number] helen - Closed Reduction for Ankle Fracture or Dislocation helen - Closed Reduction for Ankle Fracture or Dislocation, Care After helen Forms: - Medication Reconciliation Form helen - Antibiotic Education helen - Prescription Opioid Use helen - Patient Portal Instructions [facility] - Leadership Thank You Letter [facility] Prescriptions: - Diclofenac Sodium 75 mg Oral tablet, delayed release (enteric coated) - take 1 tablet ORAL route 2 times per day; 20 tablet; Refills: 0, Product [facility] Selection Permitted - Tylenol-Codeine #3 300mg-30mg Oral tablet - take 2 tablets ORAL route every 6 hours As needed; 20 tablet; Refills: 0, [facility] Product Selection Permitted Signatures: Dispatcher [employer] EDMS Anatoly Stuart MD MD cha Calcote, Vanessa, RN RN vc1 Lexie Irwin, RN RN ha1 Corrections: (The following items were deleted from the chart) 22:01 22:01 CBC+H.LAB.BRZ ordered. EDMS EDMS 22:01 22:01 COMPREHENSIVE METABOLIC PANEL+C.LAB.BRZ ordered. EDMS EDMS 22:01 22:01 Ankle Right 3 View+RAD.RAD.BRZ ordered. EDMS EDMS 22:01 22:01 Tib Fib Right+RAD.RAD.BRZ ordered. EDMS EDMS
--- NOTE | 2024-11-15 22:45 | ER ---
Nurse's Notes [facility] Name: Deb Castle Age: 54 yrs Sex: Female : 1970 Arrival Date: 11/15/2024 Time: 21:33 Bed 2 Private MD: Diagnosis: Displaced trimalleolar fracture of right lower leg, initial encounter for closed fracture;Fall on same level, unspecified Presentation: 11/15 21:35 Chief complaint: EMS states: MISSED A STEP COMING DOWN THE STAIRS. DEFORMITY TO THE ha1 RIGHT ANKLE. 50mcg of Fentanyl given. 21:35 Coronavirus screen: Client denies travel out of the [place] in the last 14 days. Ebola ha1 Screen: No symptoms or risks identified at this time. Initial Sepsis Screen: Does the patient meet any 2 criteria? No. Patient's initial sepsis screen is negative. Does the patient have a suspected source of infection? No. Patient's initial sepsis screen is negative. Risk Assessment: Do you want to hurt yourself or someone else? Patient reports no desire to harm self or others. Onset of symptoms was November 15, 2024. 21:35 Method Of Arrival: EMS: [facility] 21:35 Acuity: MIKEY 3 ha1 21:35 Mechanism of Injury: Fall down 2 steps. ha1 21:35 Trauma event details: Injury occurred in the [facility]. ha1 Triage Assessment: 21:35 General: Appears uncomfortable, Behavior is cooperative. Pain: Complains of pain in ha1 right ankle Pain currently is 8 out of 10 on a pain scale. Quality of pain is described as throbbing. Neuro: Level of Consciousness is awake, alert, obeys commands, Oriented to person, place, time, situation. Cardiovascular: Pulses are palpable in right dorsalis pedis artery and left dorsalis pedis artery. Respiratory: Airway is patent Respiratory effort is even, unlabored, Respiratory pattern is regular, symmetrical. GI: No signs and/or symptoms were reported involving the gastrointestinal system. Derm: Skin is pink, warm \T\ dry. 21:35 Musculoskeletal: Circulation, motion, and sensation intact. Range of motion: intact in ha1 all extremities. Historical: - Allergies: 22:04 No Known Allergies; ha1 - PMHx: 22:04 depressive disorder; Hypercholesterolemia; Hypertensive disorder; ha1 - PSHx: 22:04 Cholecystectomy; knee; tubal; ha1 - Immunization history:: Adult Immunizations up to date. - Infectious Disease History:: Denies. - Family history:: not pertinent. - Social history:: Smoking status: Patient denies any tobacco usage or history of. Screenin:35 Abuse screen: Denies threats or abuse. Denies injuries from another. Nutritional ha1 screening: No deficits noted. Tuberculosis screening: No symptoms or risk factors identified. 21:[address] [facility] ED Fall Risk Assessment (Adult) History of falling in the last 3 months, ha1 including since admission Yes- single mechanical fall (1 pt) Confusion or Disorientation No (0 pts) Intoxicated or Sedated No (0 pts) Impaired Gait Yes (1 pt) Mobility Assist Device Used Yes (1 pt) Altered Elimination No (0 pt) Score/Fall Risk Level 0 - 2 = Low Risk Oriented to surroundings, Maintained a safe environment, Hourly rounding (assess needs \T\ fall precautionary measures) done. Primary Survey: 21:35 NO uncontrolled hemorrhage observed. Breathing/Chest: Spontaneous respiratory effort, ha1 equal unlabored respirations, breath sounds clear bilaterally, regular pattern, symmetrical chest rise and fall. Circulation: No external hemorrhage present. Regular and strong central pulse, skin warm/dry/normal color. Disability Pupils are equal, round, reactive to light and accommodation. Exposure/Environment: All clothing and personal items were removed. Forensic evidence collection is not deemed to be indicated at this time. Items placed in patient belonging bag. Assessment: 21:35 Reassessment: see triage assessment. ha1 22:17 Reassessment: ONE RX REMOVED FROM PICSUS MACHINE PER VERBAL ORDER DR ROBLES. br2 23:20 Reassessment: Patient and/or family updated on plan of care and expected duration. Pain ha1 level reassessed. Patient is alert, oriented x 3, equal unlabored respirations, skin warm/dry/pink. Patient states feeling better. Patient states symptoms have improved. Vital Signs: 21:35 BP 113 / 52; Pulse 74; Resp 17 S; Temp 98.1(T); Pulse Ox 98% on R/A; Weight 108.86 kg; ha1 Height 5 ft. 0 in. ; 23:20 BP 117 / 58; Pulse 76; Resp 16 S; Pulse Ox 98% on R/A; ha1 21:35 Body Mass Index 46.87 (108.86 kg, 152.4 cm) ha1 Karina Coma Score: 21:35 Eye Response: spontaneous(4). Motor Response: obeys commands(6). Verbal Response: ha1 oriented(5). Total: 15. 22:02 Eye Response: spontaneous(4). Motor Response: obeys commands(6). Verbal Response: helen oriented(5). Total: 15. Trauma Score (Adult): 21:35 Eye Response: spontaneous(1); Verbal Response: oriented(1); Motor Response: obeys ha1 commands(2); Systolic BP: > 89 mm Hg(4); Respiratory Rate: 10 to 29 per min(4); Karina Score: 15; Trauma Score: 12 ED Course: 21:35 Patient arrived in ED. [id number] 21:35 Arm band placed on right wrist. ha1 21:35 Patient has correct armband on for positive identification. Placed in gown. Bed in low ha1 position. Call light in reach. Side rails up X 1. 21:39 Anatoly Robles MD is Attending Physician. helen 22:04 Triage completed. ha1 22:06 Maintain EMS IV. Dressing intact. Good blood return noted. Site clean \T\ dry. Gauge \T\ kaur 1 site: 20 gauge left AC. Flushed with 10 mL NS. 22:29 Ankle Right 3 View XRAY In Process Unspecified. EDMS 22:29 Tib Fib Right XRAY In Process Unspecified. EDMS 22:31 Ankle Right Wo Con In Process Unspecified. EDMS 22:44 Sacha Medley MD is Referral Physician. helen 23:50 No provider procedures requiring assistance completed. ha1 23:50 IV discontinued, intact, bleeding controlled, No redness/swelling at site. Pressure ha1 dressing applied. 23:50 Provided Education on: follow up with Ortho. ha1 Administered Medications: 23:06 Drug: Ketorolac IVP 15 mg IVP once Route: IVP; Site: left antecubital; vc1 23:30 Follow up: Response: No adverse reaction; Pain is decreased ha1 23:06 Drug: morphine IVP or IV 4 mg IVP once over 4 mins Route: IVP; Infused Over: 4 mins; vc1 Site: left antecubital; 23:30 Follow up: Response: No adverse reaction; Marked relief of symptoms; Pain is decreased; ha1 RASS: Alert and Calm (0) 23:06 Drug: Ondansetron IVP 4 mg IVP once; over 2 minutes Route: IVP; Site: left antecubital; vc1 23:30 Follow up: Response: No adverse reaction; Marked relief of symptoms ha1 23:19 Drug: NS 0.9% IV 1000 ml IV at 1000 ml once; to be given as a bolus over 60 minutes vc1 Route: IV; Rate: 1000 ml; Site: left antecubital; 23:50 Follow up: Response: No adverse reaction; IV Status: Completed infusion ha1 Medication: 23:50 Vaccine Information Statement (VIS) provided today. Questions and/or concerns ha1 addressed. VIS edition date: November 14, 2024. Outcome: 22:44 Discharge ordered by . helen 23:50 Discharge instructions given to patient, Instructed on discharge instructions, follow 1 up and referral plans. medication usage, Demonstrated understanding of instructions, follow-up care, medications, Prescriptions given X 3, 23:53 Discharged to home via wheelchair, with crutches, with family, ha1 23:53 Condition: stable 23:53 Patient left the ED. ha1 Signatures: Dispatcher [employer] EDMS Anatoly Robles MD MD cha Jeffries, Jennifer jj6 Rochelle Ramos RN RN vc1 Lexie Irwin RN RN ha1 Brit Ansari RN RN br2
[2024-11-15] MEDS ORDERED: ONDANSETRON 4 MG/2 ML VIAL ONE (22:51)
[2024-11-15] MEDS ORDERED: MORPHINE 4 MG/ML SYR ONE (22:52)
[2024-11-15] MEDS ORDERED: KETOROLAC 30 MG/ML INJ ONE (22:52)
[2024-11-15] MEDS ORDERED: NA CHLORIDE 0.9% 1,000 ML ONE (22:52)
[2024-11-15 23:35] LABS: Absolute Basophils 0.1 K/uL (0-0.5); Absolute Eosinophils 0.3 K/uL (0-0.5); Absolute Monocytes 0.7 K/uL (0.1-1.3); Basophils % 0.6 % (0-1.3); Eosinophils % 2.1 % (0-4.4); Hematocrit 37.8 % (36.0-45.0); Hemoglobin 12.7 g/dL (12.0-15.0); Lymphocytes % 13.2 % (15.3-44.8); MCH 28.4 pg (27.0-35.0); MCHC 33.5 g/dL (32.0-36.0); MCV 84.7 fL (80-100); MPV 8.6 fL (7.6-11.3); Monocytes % 4.4 % (3.3-12.3); Neutrophils % 79.7 % (41.7-73.7); Nucleated Red Blood Cells % 0.1 % (0-0); Platelets 269 thou/uL (152-406); RBC Red Blood Cell Count 4.47 M/uL (3.86-4.86); Red Cell Distribution Width 15.9 % (12.1-15.2)
[2024-11-15 23:55] LABS: Albumin 3.4 g/dL (3.4-5.0); Albumin/Globulin Ratio 0.7 (1.1-1.8); Anion Gap 8.9 mEq/L (5.0-15.0); Bilirubin Total 0.2 mg/dL (0.2-1.0); Globulin 4.7 g/dL (2.3-3.5); Potassium 3.9 mEq/L (3.5-5.1); Protein, Total 8.1 g/dL (6.4-8.2)
[2024-11-16 00:16] VITALS: BP 113/52; TEMP 98.1; O2SAT 98
--- NOTE | 2024-11-16 00:54 | RAD REPORT ---
PROCEDURE: Ankle Right Wo Con CLINICAL HISTORY: pain TECHNIQUE: Contiguous axial CT images obtained through the right ankle . Images obtained without intravenous contrast. Coronal and sagittal reformatted images were provided. This exam was performed according to our departmental dose-optimization program, which includes autom ated exposure control, adjustment of the mA and/or kV according to patient size and/or use of iterative reconstruction technique. COMPARISON: Correlation made with prior plain film radiographs FINDINGS: Fracture of the distal fibula with minimal lateral displacement of the distal fragment. Fracture of the medial malleolus with mild comminution. Tiny well-corticated bony fragments at the ti p of the medial malleolus may represent sequela from old avulsion injury. Disruption of the ankle mortise with widening of the tibiotalar joint space medially. Fracture of the posterior tibial malleolus extending to the tibiotalar joint space with mild comminut ion. IMPRESSION: Trimalleolar fracture with disruption of the ankle mortise. Electronically signed by: Horacio Benton MD 11/16/2024 12:08 AM CDT Due to temporary technical issues with the PACS/Digital Path reporting system, reports are being arleen d by the in-house radiologist without review as a courtesy to ensure prompt reporting the interpreting radiologist is fully responsible for the content of the report. Transcribed Date/Time: 11/16/2024 12:54 AM
== END 2024-11-15 23:53 | disposition home or self-care (01) ==
LOC: ER 21:33
PROC: 0QSG34Z Reposition Right Tibia with Internal Fixation Device, Percutaneous Approach (ICD-10-PCS; principal; 2024-11-15)
DX: S82.851A Displaced trimalleolar fracture of right lower leg, initial encounter for closed fracture (principal); W10.9XXA Fall (on) (from) unspecified stairs and steps, initial encounter
CPT/HCPCS: 96361; 85025; 36415; 80053; 73700; 73590; 73610; 96375; 96374; 99284; 27818; J2405; J7030

== ENCOUNTER → 2024-11-26 | Day surgery (SDC) | payer OTHER ==
[~2024-11-26] MED LIST changes: -ASPIRIN 81 MG CHEWABLE TABLET ONE; +BUPIVACAINE 0.5% PF 10 ML VIAL ONE; +EPINEPHRINE 1 MG/ML VIAL ONE; +FENTANYL CITR 100 MCG/2 ML ONE; -FUROSEMIDE 20 MG/ 2ML VIAL ONE; +KETOROLAC 30 MG/ML INJ ONE; +LIDOCAINE 1% MPF 5 ML VIAL ONE; +LIDOCAINE 2% MPF 5 ML VIAL ONE; +MIDAZOLAM HCL 2 MG/2 ML INJ ONE; -NA CHLORIDE 0.9% 500 ML ONE; +ONDANSETRON 4 MG/2 ML VIAL ONE; +dexAMETHasone 10 MG/ML VIAL ONE; +propofoL 200 MG/20 ML VIAL IV ONE
[2024-11-26] MEDS: Ringers Lactate 1,000 ML IV ONE ×2 (09:34→12:47)
[2024-11-26] MEDS: CEFAZOLIN SODIUM 1 GM/VIAL ONE (11:27)
--- NOTE | 2024-11-26 12:15 | EKG ---
Test Date: 2024-11-26 Test Time: 08:59:29 Chief Librarian Extension Department: RONEY MEASUREMENT RESULTS: Intervals: Rate: 69 WV: 168 QRSD: 82 QT: 402 QTc: 430 [place]: P: 14 WV: 168 QRS: -11 T: 16 INTERPRETIVE STATEMENTS: Normal sinus rhythm Moderate voltage criteria for LVH, may be normal variant Borderline ECG No previous ECG available for comparison Electronically Signed On 11-26-24 12:14:39 CDT by Fidel Gunter
[2024-11-26 14:01] VITALS: BP 148/62; TEMP 97.6; O2SAT 95
--- NOTE | 2024-11-26 14:44 | OP ---
Date of Procedure: 11/26/2024 Surgeon: Po Raymundo MD Preoperative Diagnosis: Right trimalleolar ankle fracture. Postoperative Diagnosis: Right trimalleolar ankle fracture. Procedures: 1. Open reduction, internal fixation of medial malleolus. 2. Open reduction, internal fixation of lateral malleolus. Estimated Blood Loss: Less than 20 cc. Complications: There were no complications. Indications For Operation: Ms. Castle is a 54-year-old female who unfortunately fell injuring her right lower extremity. She sustained a trimalleolar ankle fracture, was seen at hospital where she u nderwent a closed reduction and splinting. With a closed reduction improved this quite a bit. Howev er, she retained a trimalleolar ankle fracture. The posterior malleolus fracture is quite small and she saw me in my office. On seeing me in my office, her skin was very tight and unable to wrinkle. Therefore, her splint was checked and adjusted and she went home for elevation. She was checked yest erday to ensure there was skin wrinkled, which did and therefore risks, benefits, alternatives are di scussed with regard to open reduction internal fixation of medial and lateral malleolus. She states she understands things as presented including operative procedure as well as recovery and agrees to elba tsai. Description Of Procedure: The patient has a block in the holding area. She was then taken to the op erating room, where general anesthesia was easily obtained by Anesthesia staff. Following this, well -padded tourniquet placed on superior right thigh. Right lower extremity was then prepped and draped in the usual sterile fashion for procedure. C-arm was brought into ensure good views and a standard medial incision was taken down carefully through skin and soft tissues. Meticulous hemostasis being maintained using Bovie electrocautery. This followed by placement of 2 K-wires, 1 K-wire appeared t o be extremely good. The other 1 was a little anterior. It was felt that this could be used for joy cement of both screws as the reduction was very good. After both screws were placed, it was felt little t the anterior screw was too anterior, perhaps was not holding as much as needed. Therefore, the ant erior screw was removed and another K-wire was placed near the previous area, which is not quite para llel. This was purposeful to avoid causing a larger loss of nearby fixation. After the both screws were placed, they were checked and the fracture is well reduced. Joint line is ideal. After this wa s irrigated and the skin was closed with 2-0 Vicryl suture. A large bump was placed under the latera l thigh and the lateral side was addressed. This was taken down carefully through skin and soft tiss ues. Meticulous hemostasis being maintained using Bovie electrocautery fracture site. Fr acture site was exposed. It was oblique, but it reduces very well with a lobster claw clamp. The di rect lateral plate was then selected and applied in standard fashion. The only difference being that her fibula is very small proximally, however, did feel good bite with all screws. After this, this was then irrigated and the skin was closed using 2-0 Vicryl. Both incisions were then closed using s taples. The patient was placed in a very well-padded sterile dressing as well as a posterior splint and U, awakened and taken to recovery room in good condition. There were no complications. /LEVAR Voice ID: [id number] Report ID: [id number]
--- NOTE | 2024-11-27 11:56 | RAD REPORT ---
EXAMINATION: Ankle Right 2 View CLINICAL INDICATION: Female, 54 years old. ORIF COMPARISON: No prior exam. Impression: 2 intraoperative fluoroscopic images noted for right ankle ORIF. Fluoroscopy time: 50.2 seconds
== END ==
LOC: OR 08:40
PROVIDERS: ATTEND Orthopaedic Surgery
PROC: 0QSG04Z Reposition Right Tibia with Internal Fixation Device, Open Approach (ICD-10-PCS; 2024-11-26)
PROC: 0QSJ04Z Reposition Right Fibula with Internal Fixation Device, Open Approach (ICD-10-PCS; principal; 2024-11-26 12:00)
DX: S82.841A Displaced bimalleolar fracture of right lower leg, initial encounter for closed fracture (principal)
CPT/HCPCS: 93005; 73600; 27814; C1713; J2704; J2003 ×2; J2250; J3010 ×2; J1100 ×2; J0171; J2405 ×2; J7120 ×2; J0690